=== PATIENT | male | born 1945 | race Hispanic/Latino ===

== ENCOUNTER 2019-11-10 15:16 | Outpatient (CLI) | payer MEDICARE, BC ==
--- NOTE | 2019-11-10 16:02 | RAD ---
THREE VIEWS RIGHT ANKLE: 11/10/19 COMPARISON: None. HISTORY: Stress fracture. Pain when walking. FINDINGS: Three views of the right ankle shows no evidence of acute fracture or dislocation. No soft tissue swe lling is seen. No significant degenerative changes are present. IMPRESSION: No evidence of acute osseous abnormality. POS: EAA
--- NOTE | 2019-11-10 16:03 | RAD ---
THREE VIEWS OF THE RIGHT FOOT: 11/10/19 COMPARISON: None. HISTORY: Stress fracture. Pain when walking. FINDINGS: Three views of the right foot shows no evidence of acute fracture or dislocation. No degenerative paul nges are seen. No soft tissue swelling is present. IMPRESSION: No evidence of acute osseous abnormality. POS: EAA
== END 2019-11-10 15:17 | disposition home or self-care (01) ==
LOC: BICRAD 15:16
PROVIDERS: ATTEND Family Medicine
DX: M84.374A Stress fracture, right foot, initial encounter for fracture (principal); M84.371A Stress fracture, right ankle, initial encounter for fracture

== ENCOUNTER 2020-04-21 20:20 | Observation (INO) | payer MEDICARE, BC ==
[~2020-04-21 20:20] MED LIST: Iopamidol-370 76% 500 ML 1 ML ONE
--- NOTE | 2020-04-21 21:08 | RAD ---
PORTABLE CHEST: 04/21/20 HISTORY: Dyspnea. COMPARISON: 05/25/14. There is hazy infiltrate in the right mid and lower lung concerning for ground glass type infiltrates . Heart size is mildly prominent. Vascularity is upper normal. Poor inspiration. Small effusions marilu ot be excluded. IMPRESSION: Suboptimal evaluation of the chest due to poor inspiration. Evidence of hazy infiltrate in the right mid lung. Mild vascular congestion. POS: AGW
[2020-04-21 21:09] LABS: Mean Corpuscular HGB CONC 35.9 g/dL (32.0-36.0); Mean Corpuscular Hemoglobin 32.5 pg (27.0-31.0); Mean Corpuscular Volume 90.6 fL (78.0-98.0); RBC Distribution Width 11.7 % (11.5-14.5); Red Blood Cell (RBC) Count 4.92 mill/uL (4.70-6.10); White Blood Cell (WBC) Count 5.1 thou/uL (4.8-10.8)
[2020-04-21 21:10] LABS: Bacteria/HPF None Seen HPF (None Seen); Bilirubin Negative (Negative); Blood, Urine Trace (Negative); Clarity Clear (Clear); Glucose, Urine (Dipstick) Greater than 1000 mg/dL (Negative); Ketone, Urine Trace mg/dL (Negative); Leukocyte Negative Leu/uL (Negative); Nitrite Negative (Negative); Protein, Urine (Dipstick) 30 mg/dL (Neg-Trace); RBC/HPF 0-3 HPF (0-3); Specific Gravity, Urine 1.033 (1.002-1.036); Squamous Epithelial None Seen HPF (0-3); Urobilinogen Normal mg/dL (Less than 2); WBC/HPF 0-3 HPF (0-3); pH, Urine 5.5 (5.0-9.0)
[2020-04-21 21:28] LABS: #Lymphocytes 0.6 thou/uL (1.20-3.40); #Monocytes 0.5 thou/uL (0.11-0.59); %Basophils 0.5 % (0.0-1.0); %Eosinophils 0.8 % (0.0-10.0); %Lymphocytes 10.8 % (21.0-51.0); %Monocytes 8.8 % (0.0-10.0); %Neutrophils 79.1 % (42.0-75.0); Mean Platelet Volume 9.3 fL (7.4-10.4); Platelet Count 96 thou/uL (130-400); Platelet Morphology Comment Appears Decreased
[2020-04-21 21:30] LABS: ALT (SGPT) 32 U/L (8-55); AST (SGOT) 38 U/L (5-34); Albumin 3.8 g/dL (3.4-4.8); Alkaline Phosphatase 56 U/L (40-110); Anion Gap 15 mmol/L (10-20); BUN (Urea Nitrogen) 24 mg/dL (8.4-25.7); Bilirubin, Total 0.6 mg/dL (0.2-1.2); CK (CPK) 41 U/L (30-200); Calc. Creatinine Clearance 0 mL/min (70-130); Calcium 8.8 mg/dL (7.8-10.44); Carbon Dioxide 22 mmol/L (23-31); Chloride 101 mmol/L (98-107); Estimated GFR-MDRD 66; Glucose 150 mg/dL (83-110); Lipase 27 U/L (8-78); Potassium 4.4 mmol/L (3.5-5.1); Protein, Total 6.8 g/dL (5.8-8.1); Sodium 134 mmol/L (136-145)
--- NOTE | 2020-04-21 22:54 | PDOC.FPRHP ---
- History of Present Illness Chief Complaint: SOB History of Present Illness: Patient is a 74 year old male with a history of DM, HLD, and HTN who presents to the ED with complains of chills x 1 week and fever x 4 days. Patient reports max temp today of 101.9. He notes productive cough with clear sputum, mild SOB, headache, body aches, and generalized weakness. Denies vision changes, decreased appetite, congestion and sore throat. COVID test was completed at Dr. Charles's office on 04/19 that was negative. Previously tested negative for COVID on 03/29. ED Course: In the ED, patient was noted to have temperature of 101.9F. Given 1L NS. Also administered Rocephin 2g, Azithro 500mg, Lovenox 1mg/kg, and decadron 10mg. - Allergies/Adverse Reactions Allergies Allergy/AdvReac Type Severity Reaction Status Date / Time No Known Drug Allergies Allergy Verified 04/22/20 01:21 - Home Medications Medication Instructions Recorded Confirmed Type Aspirin [Ecotrin] 81 mg PO DAILY 04/22/20 04/22/20 History Calcium Carb/Vitamin D3/Vit K1 1 tablet PO DAILY 04/22/20 04/22/20 History [Calcium + D Soft Chewable Tablet] Empagliflozin [Jardiance] 10 mg PO DAILY 04/22/20 04/22/20 History Fish Oil 1,000 mg PO DAILY 04/22/20 04/22/20 History Pravastatin Sodium [Pravachol] 10 mg PO DAILY 04/22/20 04/22/20 History Valsartan 1 tab PO DAILY 04/22/20 04/22/20 History metFORMIN [Glucophage] 500 mg PO QAM-WM 04/22/20 04/22/20 History - History PMHx: DM, HLD, HTN, previous pneumothorax, untreated AVANI PSHx: None FHx: Father - CHF, Sister - DM Social: Hx of smoking cigarettes for 4 years in the 1970s, previous ETOH use, no drug use - Review of Systems General: reports: fever/chills, fatigue. denies: weight/appetite/sleep changes Eyes: denies: vision changes ENT: denies: nasal congestion, rhinorrhea Respiratory: reports: cough (productive), shortness of breath (mild). denies: congestion Cardiovascular: denies: chest pain, palpitation, edema Gastrointestinal: denies: nausea, vomiting, abdominal pain Genitourinary: denies: dysuria, polyuria Skin: denies: rashes, jaundice Musculoskeletal: denies: pain, tenderness Neurological: reports: weakness (generalized). denies: numbness, syncope, se izure Psychological: denies: anxiety, depression - Vital signs BP: [100/65] HR: [85] RR: [30] Tmax: [101.9] Pox: [96]% on [RA] Wt: [94.8kg] - Physical Exam Constitutional: NAD, awake, alert and oriented HEENT: normocephalic and atraumatic, no scleral icterus, MMM Neck: FROM, trachea midline Chest: no-tender to palpation Heart: RRR, normal S1/S2, no murmurs/rubs/gallops, no edema Lungs: no respiratory distress, good air movement -Lungs: Crackles bilaterally Abdomen: soft, non-tender, bowel sounds present Musculoskeletal: ROM grossly normal Neurological: no focal deficit Skin: no rash/lesions Heme/Lymphatic: no unusual bruising or bleeding Psychiatric: normal mood and affect FMR H&P: Results - Labs Result Diagrams: 04/22/20 05:26 04/22/20 05:26 Lab results: WBC 5.1 thou/uL (4.8-10.8) 04/21/20 20:41 Hgb 16.0 g/dL (14.0-18.0) 04/21/20 20:41 Hct 44.6 % (42.0-52.0) 04/21/20 20:41 MCV 90.6 fL (78.0-98.0) 04/21/20 20:41 Plt Count 96 thou/uL (130-400) L 04/21/20 20:41 Neutrophils % 79.1 % (42.0-75.0) H 04/21/20 20:41 Sodium 134 mmol/L (136-145) L 04/21/20 20:41 Potassium 4.4 mmol/L (3.5-5.1) 04/21/20 20:41 Chloride 101 mmol/L (98-107) 04/21/20 20:41 Carbon Dioxide 22 mmol/L (23-31) L 04/21/20 20:41 BUN 24 mg/dL (8.4-25.7) 04/21/20 20: Creatinine 1.09 mg/dL (0.7-1.3) 04/21/20 20: Glucose 150 mg/dL (83-110) H 04/21/20 20:41 Lactic Acid 1.3 mmol/L (0.5-2.2) 04/21/20 20: Calcium 8.8 mg/dL (7.8-10.44) 04/21/20 20: Total Bilirubin 0.6 mg/dL (0.2-1.2) 04/21/20 20: AST 38 U/L (5-34) H 04/21/20 20:41 ALT 32 U/L (8-55) 04/21/20 20: Alkaline Phosphatase 56 U/L (40-110) 04/21/20 20: Creatine Kinase 41 U/L (30-200) 04/21/20 20: B-Natriuretic Peptide Less than 10.0 pg/mL (0-100) 04/21/20 20: Serum Total Protein 6.8 g/dL (5.8-8.1) 04/21/20 20: Albumin 3.8 g/dL (3.4-4.8) 04/21/20 20: Lipase 27 U/L (8-78) 04/21/20 20: Urine Ketones Trace mg/dL (Negative) A 04/21/20 20:45 Urine Blood Trace (Negative) A 04/21/20 20:45 Urine Nitrite Negative (Negative) 04/21/20 20:45 Ur Leukocyte Esterase Negative Courtney/uL (Negative) 04/21/20 20:45 Urine RBC 0-3 HPF (0-3) 04/21/20 20:45 Urine WBC 0-3 HPF (0-3) 04/21/20 20:45 Ur Squamous Epith Cells None Seen HPF (0-3) 04/21/20 20:45 Urine Bacteria None Seen HPF (None Seen) 04/21/20 20:45 FMR H&P: A/P - Plan COVID pneumonia Febrile in ED with max 101.9. WBC 5.1. D-dimer 0.4. Trop 0.012. BNP < 10. CXR showed hazy infiltration of the R middle lobe with mild vascular congestion. Negative flu. +COVID in ED -F/u CTA chest -Procal, ferritin, CRP -Trend d-dimer daily -F/u blood culture -Given Rocephin and Azithro in ED (04/21). Will continue -Given therapeutic lovenox in ED. Will start lovenox 40 daily -Given decadron 10mg in ED. Will start 4mg IV BID DM -Continue home medication HTN -Continue home medication Hx pneumothroax -Aware PCP: Dr. Charles Code: FULL DVT Ppx: Lovenox Dispo: Admit to medicine obs, expected LOS ~ 48 hours FMR H&P: Upper Level - Plan Date/Time: 04/21/20 0149 I, Monique Douglass, have evaluated this patient and agree with findings/plan as outlined by international accountant resident. Pertinent changes/additions are listed here. 74 yo M with PMH DM, HTN, HLD presents with a nonspecific 1 week hx of chills. He reports fever for the past 4 days at home. Productive wet cough with white phlegm began today. Endorses body aches, weakness, decreased appetite, mild SOB. Tolerating liquids well. Seen in Dr. Mckeon office 04/19 with negative COVID and flu swabs. Denies diarrhea, vomiting, chest pain. No known sick contacts. PMH includes DM2, HLD, HTN In ED given 1L, decadron, ASA, therapeutic lovenox dose, azithromycin, ceftriaxone PE: Gen: NAD HEENT: Moist MM, no LAD Heart: RRR, no murmurs Lungs: No increased work of breathing, scattered crackles, no wheezing, good air movement Abd: soft, nontender Ext: no cyanosis or edema COVID PNA w/ possible superimposed bacterial pneumonia - CXR with R mid lung hazy infiltrate, poor inspiration, mild vasc congestion - CTA read pending - COVID + 04/21 (had negative test 04/19). Symptom onset ~04/18 - No hypoxia. On presentation Tmax 101.9, RR 30, pulse 99 - Start dexamethasone. No indication for convalescent plasma or remdesivir at this time - Covid labs pending. D-dimer 0.4 - BNP and trop negative - Continue azithromycin and ceftriaxone (04/21) for concern for bacterial pneumonia considering R sided infiltrate. Procalcitonin pending Attending: Edward PCP: Melvin Dispo: admit to medical floor for observation, expected LOS <48h Addendum - Attending - Attending Attestation Date/Time: 04/21/20 4858 I personally evaluated the patient and discussed the management with resident team I agree with the History, Examination, Assessment and Plan documented above with any addition or exceptions noted below. Patient with possible resolving vs evolving consolidated pneumonia now with superimposed COVID pneumonia. Intermittent hypoxia since presentation. At this time does not require O2. Poor air movement in bases. Course sounds throughout. Will obs overnight. Start treatment for CAP. Add dex. Trend labs. PPx lovenox. Dispo to be determined tomorrow based on respiratory status. Does have several concerning underlying conditions including obesity, untreated AVANI, hx of spontaneous pnuemothorax, HTN, DM, and HLD. [place]
[2020-04-21] MEDS ORDERED: Acetaminophen 325 MG TAB PO PRN (23:13)
[2020-04-21] MEDS ORDERED: Ondansetron PF 4 MG/2 ML Vial IVP PRN (23:13)
[2020-04-21] MEDS ORDERED: Ondansetron ODT 4 MG TAB PO PRN (23:13)
[2020-04-21] MEDS ORDERED: Dextrose 50% Abboject 50 ML SYRINGE SLOW IVP PRN (23:25)
[2020-04-21] MEDS ORDERED: HumaLOG 300 UNITS/3 ML VIAL SC PRN ×2 (23:25)
[2020-04-21] MEDS ORDERED: Dextrose 5% in Water 1,000 ML IV PRN (23:25)
[2020-04-21] MEDS ORDERED: Azithromycin 500 MG VIAL ONE (23:35)
[2020-04-21] MEDS ORDERED: Aspirin 325 MG TAB ONE (23:35)
[2020-04-21] MEDS ORDERED: Enoxaparin Sodium 100 MG/ML SYRINGE ONE (23:35)
[2020-04-21] MEDS ORDERED: Dexamethasone 10 MG/ML VIAL ONE (23:36)
[2020-04-22 01:09] VITALS: BMI 31.4
[2020-04-22 05:41] LABS: #Lymphocytes 0.5 thou/uL (1.20-3.40); #Monocytes 0.2 thou/uL (0.11-0.59); #Neutrophils 3.1 thou/uL (1.40-6.50); %Basophils 0.3 % (0.0-1.0); %Eosinophils 0.1 % (0.0-10.0); %Lymphocytes 12.2 % (21.0-51.0); %Monocytes 3.9 % (0.0-10.0); %Neutrophils 83.4 % (42.0-75.0); Mean Corpuscular HGB CONC 35.2 g/dL (32.0-36.0); Mean Corpuscular Hemoglobin 32.1 pg (27.0-31.0); Mean Corpuscular Volume 91.2 fL (78.0-98.0); Mean Platelet Volume 8.8 fL (7.4-10.4); Platelet Count 91 thou/uL (130-400); RBC Distribution Width 11.8 % (11.5-14.5); Red Blood Cell (RBC) Count 4.69 mill/uL (4.70-6.10); White Blood Cell (WBC) Count 3.7 thou/uL (4.8-10.8)
[2020-04-22 05:57] LABS: Anion Gap 16 mmol/L (10-20); BUN (Urea Nitrogen) 20 mg/dL (8.4-25.7); Calc. Creatinine Clearance 86 mL/min (70-130); Calcium 8.2 mg/dL (7.8-10.44); Carbon Dioxide 19 mmol/L (23-31); Chloride 104 mmol/L (98-107); Estimated GFR-MDRD 74; Glucose 175 mg/dL (83-110); Sodium 134 mmol/L (136-145)
--- NOTE | 2020-04-22 07:04 | PDOC.FM ---
- Subjective Subjective: Pt is doing well. He has fever/chills. He denies worsening respiratory status. Overall he feels better. He is not currently on oxygen. He currently does not have a positive COVID test. He wants me to discuss with his . - Objective Vital Signs & Weight: Vital Signs (12 hours) Temp Pulse Resp BP Pulse Ox 04/22/20 04:00 97.7 F 68 18 117/76 95 04/22/20 00:52 97.5 F L 81 20 112/71 94 L Weight Weight 91.172 kg Result Diagrams: 04/22/20 05:26 04/22/20 05:26 Radiology Reviewed by me: Yes Phys Exam - Physical Examination Constitutional: NAD HEENT: PERRLA, moist MMs bilateral crackles without wheezing Cardiovascular: RRR, no significant murmur Gastrointestinal: soft, positive bowel sounds Musculoskeletal: no edema, pulses present Psychiatric: normal affect, A&O x 3 Dx/Plan - Plan Plan: COVID pneumonia Febrile in ED with max 101.9. WBC 5.1. D-dimer 0.4. Trop 0.012. BNP < 10. CXR showed hazy infiltration of the R middle lobe with mild vascular congestion. Negative flu. -COVID tests mildly elevated -F/u blood culture -Given Rocephin and Azithro in ED (04/21). Will continue although procalcitonin is negative. -Continue lovenox inpatient -Discuss discharge as he does not have respiratory distress. -Discuss COVID testing with Dr. Charles to confirm negative test and testing type. Thrombocytopenia - monitor in the setting of lovenox DM -Continue home medication HTN -Continue home medication Hx pneumothroax -Aware PCP: Dr. Charles Code: FULL DVT Ppx: Lovenox Dispo: Admit to medicine obs Addendum - Attending - Attending Attestation Date/Time: 04/22/20 1223 I personally evaluated the patient and discussed the management with Dr. Kamara. I agree with the History, Examination, Assessment and Plan documented above with any addition or exceptions noted below. Patient here with concern for COVID pneumonia. However, his vital signs are very stable. Will discuss with patient and family the option of discharge home with close outpatient monitoring.
--- NOTE | 2020-04-22 07:39 | CT ---
CTA CHEST: Axial tomograms were obtained following angio protocol with multiplanar reconstruction and 3D postpro cessing. INDICATION: Shortness of breath and fever. FINDINGS: Pulmonary arteries are adequately opacified. There is no evidence of pulmonary embolus. Thoracic ao rta is unremarkable. There is nonspecific mediastinal and hilar adenopathy. Review of the lung hahn shows bilateral diffuse hazy ground-glass infiltrates which are primarily i n the periphery of all lobes of both lungs. Findings indicate COVID pneumonia. IMPRESSION: 1. No evidence of pulmonary embolus. 2. Mediastinal and hilar adenopathy. 3. Bilateral peripheral qclivv-mybhh-izur infiltrates throughout both lungs consistent with COVID pn eumonia. POS: AGW
[2020-04-22] MEDS ORDERED: Calcium Carbonate 600 MG + Vit D TAB PO SCH (08:00)
[2020-04-22] MEDS ORDERED: metFORMIN 500 MG TAB PO SCH (08:00)
[2020-04-22] MEDS ORDERED: Aspirin 81 mg Enteric Coated Tablet PO SCH (09:00)
[2020-04-22] MEDS ORDERED: Dexamethasone Sod Phosphate 4 MG in Sodium Chloride 0.9% 50 ML IVPB SCH (09:00)
[2020-04-22] MEDS ORDERED: Empagliflozin 10 MG TAB PO SCH (09:00)
[2020-04-22] MEDS ORDERED: Valsartan 80 MG TAB PO SCH (09:00)
[2020-04-22] MEDS ORDERED: Fish Oil 1,000 MG CAP PO SCH (09:00)
[2020-04-22] MEDS ORDERED: Enoxaparin Sodium 40 MG/0.4 ML SYRINGE SC SCH (09:00)
[2020-04-22 15:15] VITALS: BP 136/85; TEMP 97.7
[2020-04-22 17:53] LABS: SARS-CoV-2 MS2 Positive; SARS-CoV-2 N Gene Positive; SARS-CoV-2 S Gene Positive; SARS-CoV-2 by NAA DETECTED (NotDetected); SARS-CoV-2 orf1ab Positive
--- NOTE | 2020-04-22 18:37 | DIS ---
DATE OF ADMISSION: 04/21/2020 DATE OF DISCHARGE: 04/22/2020 RESIDENT: Fei Kamara DO ADMITTING ATTENDING: Emelina Leon MD DISCHARGE ATTENDING: Hua Rosales MD CONSULTS: None. PROCEDURES: 1. Chest x-ray on 04/21/2020, revealed suboptimal evaluation of the chest due to poor inspiration, but there was evidence of hazy infiltrate in the right middle lung. Mild vascular congestion. 2. CTA chest and thorax on 04/21/2020 revealed no evidence of PE. Mediastinal and hilar adenopathy. Bilateral peripheral aqxdwe-mxrdb-hkoe infiltrates throughout both lungs consistent with COVID pneumonia. PRIMARY DIAGNOSES: 1. COVID pneumonia without acute hypoxic respiratory failure. 2. Thrombocytopenia. SECONDARY DIAGNOSES: 1. Diabetes mellitus. 2. Hypertension. 3. History of pneumothorax. 4. Hyperlipidemia. DISCHARGE MEDICATIONS: 1. Fish oil 1000 mg p.o. daily. 2. Calcium plus D3 soft chewable tablet, one tablet p.o. daily. 3. Aspirin 81 mg p.o. daily. 4. Metformin 500 mg p.o. q.a.m. 5. Pravastatin 10 mg p.o. daily. 6. Valsartan 320 mg p.o. daily. 7. Jardiance 10 mg p.o. daily. 8. Dexamethasone 6 mg p.o. q.a.m. for a total of a 10-day course. DISCONTINUED MEDICATIONS: None. HISTORY OF PRESENT ILLNESS/HOSPITAL COURSE: Clifton Aguilar is a 74-year-old gentleman, with past medical history consistent with diabetes, hypertension, and hyperlipidemia, who presented for fevers and chills for about one week. The patient was noted to have a max temperature of 101.9 in the emergency department. Of note, he had been tested for COVID pneumonia with point of care antigen test which was negative in Dr. Charles's office. Of note, he did have a negative test on 03/29. Laboratory in the emergency department revealed a white blood cell count of 3.7, D-dimer of 0.04, ferritin 851, CRP 9.24, and procalcitonin 0.06. PCR COVID swab was not sent at that time, but it was likely that patient was suffering from COVID pneumonia, although he was not having acute hypoxic respiratory failure. I spoke with Dr. Charles on 04/22/2020. He noted that his also tested positive for COVID pneumonia. I spoke with the and she states that her symptoms were very mild, similar to her 's. Both the patient and felt that he was safe to go home as he was not requiring any oxygen therapy. Return precautions were discussed with patient and . We did not continue antibiotics as his procalcitonin was 0.06. We will continue dexamethasone for a total of a 10-day course. He will follow up with Dr. Charles for a telephone visit on the following Saturday. DISPOSITION: Stable. DISCHARGE INSTRUCTIONS: 1. Location: [facility]. 2. Diet: Heart-healthy and diabetic. 3. Activity: Ad chrissy. 4. Followup: Follow up with Dr. Charles on 04/25/2020. Job ID: [id number]
[2020-04-22] MEDS ORDERED: Pravastatin Sodium 20 MG TAB PO SCH (21:00)
[2020-04-22] MEDS ORDERED: Simvastatin 5 MG TAB PO SCH (21:00)
[2020-04-22] MEDS ORDERED: cefTRIAXone\\ROCEPHIN 2 GM in Sodium Chloride 0.9% 100 ML IVPB SCH (23:00)
[2020-04-22] MEDS ORDERED: Azithromycin 500 MG in Sodium Chloride 0.9% 250 ML 250 ML IVPB SCH (23:30)
[2020-04-23] MEDS ORDERED: Dexamethasone 4 MG TAB PO SCH (08:00)
--- NOTE | 2020-04-30 16:03 | EKG ---
Test Reason : SEPSIS Blood Pressure : / mmHG Vent. Rate : 098 BPM Atrial Rate : 098 BPM P-R Int : 162 ms QRS Dur : 092 ms QT Int : 328 ms P-R-T Axes : 043 -45 010 degrees QTc Int : 418 ms Normal sinus rhythm Left anterior fascicular block Abnormal ECG Confirmed by RASHID CROOK, MARTHA ([id number]), graphic editor VIVIAN BLAS ([id number]) on 04/30/2020 4:03:09 PM Referred By: Confirmed By:MARTHA MIKE MD
== END 2020-04-22 16:26 | disposition home or self-care (01) ==
LOC: ERS 20:20 → T4-A 22:41
PROVIDERS: ADMIT Student in an Organized Health Care Education/Training Program; ATTEND Student in an Organized Health Care Education/Training Program
DX: U07.1 COVID-19 (principal); J12.89 Other viral pneumonia; D69.6 Thrombocytopenia, unspecified; E11.9 Type 2 diabetes mellitus without complications; E78.5 Hyperlipidemia, unspecified; I10 Essential (primary) hypertension; G47.33 Obstructive sleep apnea (adult) (pediatric); Z79.82 Long term (current) use of aspirin; Z79.84 Long term (current) use of oral hypoglycemic drugs; Z79.899 Other long term (current) drug therapy; Z87.891 Personal history of nicotine dependence
CPT/HCPCS: 71045; 71275; 80048; 80053; 82550; 82728; 82962; 83605; 83690; 83880; 84145; 84484; 85025 ×2; 85379 ×2; 86140; 87040; 87149 ×2; 87804 ×2; 93005; 96365; 96367; 96372; 96375; 99285; U0003; 36415; 36416; 81003; 81015; 87635; J0456; J0690; J1100; J1650; Q9967

== ENCOUNTER 2020-04-23 20:32 | Inpatient (IN) | payer MEDICARE, BC ==
--- NOTE | 2020-04-23 21:11 | RAD ---
Chest AP view INDICATION: History of Covid positive status with shortness of breath COMPARISON: Prior exam dated April 21, 2020 FINDINGS: Lungs: There is worsening bilateral pneumonia Cardiac silhouette: Stable mild cardiomegaly. Pulmonary vasculature: Normal Pleural spaces: No pleural effusion or pneumothorax is demonstrated. Upper abdomen: No abnormality seen. Osseous structures: No acute osseous abnormality. Additional findings: None. IMPRESSION: Worsening bilateral pneumonia
[2020-04-23 21:22] LABS: #Lymphocytes 0.5 thou/uL (1.20-3.40); #Monocytes 0.4 thou/uL (0.11-0.59); #Neutrophils 7.5 thou/uL (1.40-6.50); %Eosinophils 0.2 % (0.0-10.0); %Lymphocytes 5.9 % (21.0-51.0); %Monocytes 4.7 % (0.0-10.0); %Neutrophils 89.2 % (42.0-75.0); Hemoglobin 15.8 g/dL (14.0-18.0); Mean Corpuscular HGB CONC 35.3 g/dL (32.0-36.0); Mean Corpuscular Volume 90.5 fL (78.0-98.0); Mean Platelet Volume 8.8 fL (7.4-10.4); Platelet Count 136 thou/uL (130-400); RBC Distribution Width 11.8 % (11.5-14.5); Red Blood Cell (RBC) Count 4.94 mill/uL (4.70-6.10); White Blood Cell (WBC) Count 8.4 thou/uL (4.8-10.8)
[2020-04-23 22:13] LABS: ALT (SGPT) 23 U/L (8-55); AST (SGOT) 37 U/L (5-34); Albumin 3.7 g/dL (3.4-4.8); Alkaline Phosphatase 52 U/L (40-110); Anion Gap 23 mmol/L (10-20); BUN (Urea Nitrogen) 25 mg/dL (8.4-25.7); Bilirubin, Total 0.7 mg/dL (0.2-1.2); Calc. Creatinine Clearance 0 mL/min (70-130); Calcium 9.1 mg/dL (7.8-10.44); Carbon Dioxide 16 mmol/L (23-31); Chloride 101 mmol/L (98-107); Globulin 3.1 g/dL (2.4-3.5); Glucose 164 mg/dL (83-110); Potassium 5.9 mmol/L (3.5-5.1); Protein, Total 6.8 g/dL (5.8-8.1); Sodium 134 mmol/L (136-145)
[2020-04-23] MEDS ORDERED: Azithromycin 500 MG VIAL ONE (22:14)
[2020-04-23] MEDS ORDERED: Cefepime 2 GM VIAL ONE (22:14)
[2020-04-23] MEDS ORDERED: Dexamethasone 10 MG/ML VIAL ONE (22:14)
--- NOTE | 2020-04-23 22:27 | PDOC.FPRHP ---
- History of Present Illness Chief Complaint: SOB, difficulty breathing History of Present Illness: Patient is a 74 yo M hx of HTN, HLD, DM who presents due to shortness of breath that started late afternoon. Patient was d/c from the hospital yesterday due to covid pneumonia, never requiring oxygen. First day of covid symptoms was 5-6 days ago. His tested positive a couple days ago. Denies cough and chest pain, but promotes fevers off/on. States his breathing is improved. Denies abdominal pain, N/V, weakness. ED Course: 1L NS, 10mg IV decadron, 2g cefepime, albuterol, azithro 500mg IV - Allergies/Adverse Reactions Allergies Allergy/AdvReac Type Severity Reaction Status Date / Time No Known Drug Allergies Allergy Verified 04/22/20 01:21 - Home Medications Medication Instructions Recorded Confirmed Type Aspirin [Ecotrin Low Strength] 81 mg PO DAILY 04/22/20 04/24/20 History Calcium Carb/Vitamin D3/Vit K1 1 tablet PO DAILY 04/22/20 04/24/20 History [Calcium + D Soft Chewable Tablet] Dexamethasone [Decadron] 6 mg PO QAM-WM #8 tab 04/22/20 04/24/20 Rx Empagliflozin [Jardiance] 10 mg PO DAILY 04/22/20 04/24/20 History Fish Oil 1,000 mg PO DAILY 04/22/20 04/24/20 History Pravastatin Sodium [Pravachol] 10 mg PO DAILY 04/22/20 04/24/20 History Valsartan 1 tab PO DAILY 04/22/20 04/24/20 History metFORMIN [Glucophage] 500 mg PO QAM-WM 04/22/20 04/24/20 History - History PMHx:DM, HLD, HTN, previous pneumothorax, untreated AVANI PSHx: none FHx: father chf, sister DM Social: Hx of smoking cigarettes for 4 years in the 1970s, previous ETOH use, no drug use - Review of Systems General: reports: fever/chills. denies: weight/appetite/sleep changes Eyes: denies: eye pain, vision changes ENT: denies: nasal congestion, rhinorrhea Respiratory: reports: shortness of breath. denies: cough, congestion Cardiovascular: denies: chest pain, palpitation Gastrointestinal: denies: nausea, vomiting, diarrhea, constipation, abdominal pain Genitourinary: denies: incontinence, dysuria Skin: denies: rashes, lesions Musculoskeletal: denies: pain, tenderness Neurological: denies: numbness, syncope - Vital signs BP: 119/73, MAP: 88, Pulse: 88, Resp: 26, Temp: 99.3 (Oral), Pain: 0, O2 sat: 99 on (High Flow O2), - Physical Exam Constitutional: NAD HEENT: normocephalic and atraumatic, PERRLA, EOMI, other (dry mucous membranes) Neck: supple, FROM Chest: no-tender to palpation Heart: RRR, normal S1/S2, no murmurs/rubs/gallops Lungs: CTAB, no rales/rhonchi, no wheezing Abdomen: soft, non-tender, bowel sounds present Musculoskeletal: normal structure, normal tone Neurological: no focal deficit, normal sensation Skin: no rash/lesions, other (low cap refill) Heme/Lymphatic: no unusual bruising or bleeding, no purpura Psychiatric: good judgment and insight, intact recent and remote memory FMR H&P: Results - Labs Result Diagrams: 04/24/20 03:32 04/24/20 03:32 Lab results: WBC 8.4 thou/uL (4.8-10.8) 04/23/20 21:07 Hgb 15.8 g/dL (14.0-18.0) 04/23/20 21:07 Hct 44.7 % (42.0-52.0) 04/23/20 21:07 MCV 90.5 fL (78.0-98.0) 04/23/20 21:07 Plt Count 136 thou/uL (130-400) 04/23/20 21:07 Neutrophils % 89.2 % (42.0-75.0) H 04/23/20 21:07 Sodium 134 mmol/L (136-145) L 04/23/20 21:07 Potassium 5.9 mmol/L (3.5-5.1) H 04/23/20 21:07 Chloride 101 mmol/L (98-107) 04/23/20 21:07 Carbon Dioxide 16 mmol/L (23-31) L 04/23/20 21:07 BUN 25 mg/dL (8.4-25.7) 04/23/20 21:07 Creatinine 1.04 mg/dL (0.7-1.3) 04/23/20 21:07 Glucose 164 mg/dL (83-110) H 04/23/20 21:07 Lactic Acid 2.3 mmol/L (0.5-2.2) H 04/23/20 21:07 Calcium 9.1 mg/dL (7.8-10.44) 04/23/20 21:07 Total Bilirubin 0.7 mg/dL (0.2-1.2) 04/23/20 21:07 AST 37 U/L (5-34) H 04/23/20 21:07 ALT 23 U/L (8-55) 04/23/20 21:07 Alkaline Phosphatase 52 U/L (40-110) 04/23/20 21:07 B-Natriuretic Peptide 38.4 pg/mL (0-100) 04/23/20 21:07 Serum Total Protein 6.8 g/dL (5.8-8.1) 04/23/20 21:07 Albumin 3.7 g/dL (3.4-4.8) 04/23/20 21:07 - Radiology Interpretation Chest x-ray Status: image reviewed by me (worsening bilateral pneumonia) FMR H&P: A/P - Plan Covid Pneumonia CXR - worsening bilateral pneumonia Covid +, Covid symptoms started 5-6 days ago Hypoxic on arrival, satting in the 70s, now requiring high flow 50/70 - continue azithro - continue steroids - anticoagulating with lovenox - consider ID consult convalescent plasma & remdesivir - consult pulm in am - continue covering for typical/atypical bacterial PNA, pending procal - continue monitoring respiratory status, vitals DM - resume home meds - hypoglycemia protocol - SS - ACHS glucose checks HTN - resume home meds HLD - resume home meds Dispo: admit IMCU PCP: Melvin Code status: Full Case to be discussed with Dr. Rosales. FMR H&P: Upper Level - Plan Date/Time: 04/23/20 8794 I, Gladys Presley MD, have evaluated this patient and agree with findings/plan as outlined by internet database specialist resident. Pertinent changes/additions are listed here. This is a 74yo M with PMH of DM2, HTN and who was recently hospitalized and discharge on 04/22 for COVID PNA presenting today with difficulty breathing and worsening SOB. At that time he was not requiring O2. He was given steroids. Abx were not continued because his procal was negative. Patient reports chills and fever off and on over the last 5-6 days ago. He reports productive cough with clear sputum. Reports worsened SOB as compared to yesterday. Denies decreased appetite, congestion or sore throat. Had positive COVID test on 04/22. In the ER the patient was febrile with Tmax of 100.4F. He also presented satting 75% on RA, tachy at 116 and tachypneic at 24. He was placed on HFNC 50L/71%FiO2 and was satting 98% with this. He was given proventil, cefepime, azithromycin, decadron, and 1L NS. His CXR showed worsening bilateral PNA. On PE, patient was resting comfortably in bed, he did become mildly SOB with multiple sentences. Lung sounds were normal, poor air movement. RRR, no murmurs. MMM dry and slow cap refill. Will admit patient to IMCU for Acute Hypoxic Resp Failure 2/2 COVID PNA. Will continue decadron. Continue azithro. Procal pending. Will give lovenox 40mg daily, can consider increasing to th. if Ddimer rises. Albuterol PRN. Will consult pulm in the AM. Will consult ID to consider patient for conv. plasma and remdesivir now that patient is requiring O2. COVID pos on 04/22, per patient day 6 of symptoms. Continue on HFNC, will ween as tolerated. Awake proning as tolerated. PO hydration. COVID precautions. Continue medications for chronic conditions. Dispo: admit IMCU, inpt PCP: Melvin Code: FULL Case discussed with Dr. Rosales Addendum - Attending - Attending Attestation Date/Time: 04/24/20 0030 I personally evaluated the patient and discussed the management with Dr. Du/Fernandez. I agree with the History, Examination, Assessment and Plan documented above with any addition or exceptions noted below.
[2020-04-23] MEDS ORDERED: Albuterol 200 PUFF (6.7GM INHALER) ONE (22:35)
[2020-04-24 00:17] LABS: Lactic Acid 1.6 mmol/L (0.5-2.2)
[2020-04-24] MEDS ORDERED: Ondansetron PF 4 MG/2 ML Vial IVP PRN (00:56)
[2020-04-24] MEDS ORDERED: Ondansetron ODT 4 MG TAB PO PRN (00:56)
[2020-04-24 01:01] LABS: Troponin I Less than 0.010 ng/mL (< 0.028)
[2020-04-24] MEDS ORDERED: Albuterol 200 PUFF (6.7GM INHALER) INH PRN (01:32)
[2020-04-24] MEDS ORDERED: Lactated Ringer's 1,000 ML IV SCH (01:45)
[2020-04-24] MEDS ORDERED: Dextrose 5% in Water 1,000 ML IV PRN (01:46)
[2020-04-24] MEDS ORDERED: Dextrose 50% Abboject 50 ML SYRINGE SLOW IVP PRN (01:46)
[2020-04-24 03:43] LABS: #Lymphocytes 0.5 thou/uL (1.20-3.40); #Monocytes 0.3 thou/uL (0.11-0.59); #Neutrophils 5.1 thou/uL (1.40-6.50); %Eosinophils 0.2 % (0.0-10.0); %Lymphocytes 7.7 % (21.0-51.0); Hemoglobin 13.8 g/dL (14.0-18.0); Mean Corpuscular HGB CONC 35.2 g/dL (32.0-36.0); Mean Corpuscular Hemoglobin 32.5 pg (27.0-31.0); Mean Corpuscular Volume 92.3 fL (78.0-98.0); Mean Platelet Volume 8.5 fL (7.4-10.4); Platelet Count 126 thou/uL (130-400); RBC Distribution Width 11.9 % (11.5-14.5); Red Blood Cell (RBC) Count 4.24 mill/uL (4.70-6.10); White Blood Cell (WBC) Count 5.9 thou/uL (4.8-10.8)
[2020-04-24 04:14] LABS: ALT (SGPT) 22 U/L (8-55); AST (SGOT) 26 U/L (5-34); Albumin 3.2 g/dL (3.4-4.8); Alkaline Phosphatase 39 U/L (40-110); Anion Gap 18 mmol/L (10-20); BUN (Urea Nitrogen) 25 mg/dL (8.4-25.7); Bilirubin, Total 0.6 mg/dL (0.2-1.2); Calc. Creatinine Clearance 94 mL/min (70-130); Calcium 8.6 mg/dL (7.8-10.44); Carbon Dioxide 18 mmol/L (23-31); Chloride 104 mmol/L (98-107); Globulin 2.8 g/dL (2.4-3.5); Glucose 160 mg/dL (83-110); Potassium 4.9 mmol/L (3.5-5.1); Sodium 135 mmol/L (136-145)
[2020-04-24 04:17] LABS: Troponin I Less than 0.010 ng/mL (< 0.028)
--- NOTE | 2020-04-24 05:47 | PDOC.FM ---
- Subjective Subjective: Doing well this morning. Endorses SOB, but improved from yesterday. Hungry this morning otherwise no complaints. - Objective MAR Reviewed: Yes Vital Signs & Weight: Vital Signs (12 hours) Temp Pulse Ox 04/24/20 04:00 97.7 F 04/24/20 01:32 LINE FIXER 99 04/24/20 00:25 97.0 F L 100 Weight Weight 89.358 kg Most Recent Monitor Data Heart Rate from ECG 79 NIBP 146/83 NIBP BP-Mean 104 Respiration from ECG 30 SpO2 95 Result Diagrams: 04/24/20 03:32 04/24/20 03:32 Phys Exam - Physical Examination Constitutional: NAD HEENT: sclera anicteric Neck: supple rhonchi present Cardiovascular: RRR Gastrointestinal: soft Musculoskeletal: no edema Neurological: moves all 4 limbs Psychiatric: normal affect, A&O x 3 Skin: no rash Dx/Plan - Plan Plan: Acute Hypoxic Resp failure 2/2 COVID PNA (+ on 04/22, Day #7 of symptoms) - Continue Decadron, Albuterol PRN - Ordered Conv plasma. ID consulted. - Pulm consulted. - Continue on HFNC, wean as tolerated. Awake proning as tolerated. PO hydration. COVID precautions. DM - Continue home meds - Hypoglycemia protocol - ACHS glucose checks HTN - Continue home meds HLD - Continue home meds PCP: Melvin Code status: Full Addendum - Attending - Attending Attestation Date/Time: 04/24/20 9148 I personally evaluated the patient and discussed the management with Dr. Delaney. I agree with the History, Examination, Assessment and Plan documented above with any addition or exceptions noted below. Patient here for worsening respiratory status from COVID. He had acute worsening shortness of breath that prompted re-admission. Now on HFNC. Continue usual supportive care.
[2020-04-24] MEDS ORDERED: Enoxaparin Sodium 40 MG/0.4 ML SYRINGE SC SCH (09:00)
[2020-04-24] MEDS ORDERED: Azithromycin 250 MG TAB PO SCH (09:00)
[2020-04-24] MEDS: Empagliflozin 10 MG TAB PO SCH (09:48)
[2020-04-24] MEDS: Fish Oil 1,000 MG CAP PO SCH (09:49)
[2020-04-24] MEDS: Simvastatin 5 MG TAB PO SCH (09:49)
[2020-04-24] MEDS: Calcium Carbonate 600 MG + Vit D TAB PO SCH (09:49)
[2020-04-24] MEDS: Valsartan 80 MG TAB PO SCH (09:49)
[2020-04-24] MEDS: metFORMIN 500 MG TAB PO SCH (09:50)
[2020-04-24] MEDS: Enoxaparin Sodium 40 MG/0.4 ML SYRINGE SC SCH ×2 (09:51→19:51)
[2020-04-24] MEDS: Dexamethasone 4 MG TAB PO SCH (10:05)
[2020-04-24] MEDS: Lactated Ringer's 1,000 ML IV SCH (16:45)
[2020-04-24] MEDS ORDERED: REMDESIVIR (EUA) 200 MG in Sodium Chloride 0.9% 250 ML 210 ML IV SCH (18:00)
--- NOTE | 2020-04-24 21:18 | CON ---
DATE OF CONSULTATION: 04/24/2020 REFERRING PHYSICIAN: Dr. Du. HISTORY OF PRESENT ILLNESS: Mr. Aguilar is a 74-year-old gentleman with history of hypertension and diabetes. He was here at the hospital two days prior to admission with COVID pneumonia; however, symptoms were fairly mild at that time. He was not requiring supplemental oxygen and was discharged home. Unfortunately, he is breathing fairly rapidly thereafter began to deteriorate and he returned to the hospital where he is now admitted. It has been approximately one week since the initial onset of symptoms, although only 24 hours since dramatic worsening. He has received Decadron, empiric cefepime and azithromycin. He is now admitted to the intensive care unit and is on high-flow nasal cannula at 50 L and 70% FiO2. He has not yet received the remdesivir or convalescent plasma. He denies sputum, hemoptysis. He does report breathlessness. He denies chest pain, but does report chest tightness/fullness. SOCIAL HISTORY: The patient is a 74-year-old gentleman. He does not smoke or drink. ALLERGIES: HE HAS NO REPORTED MEDICATION ALLERGIES. HOME MEDICATIONS: 1. Aspirin 81 daily. 2. Calcium with vitamin D daily. 3. Decadron 6 mg daily at home and taper. 4. Jardiance 10 mg daily. 5. Fish oil daily. 6. Pravastatin 10 mg daily. 7. Losartan unspecified dose one tablet daily. 8. Metformin 500 daily. PAST MEDICAL HISTORY: Remarkable for diabetes with dyslipidemia and hypertension. He has untreated obstructive sleep apnea. He is mildly obese with BMI of 31. REVIEW OF SYSTEMS: Remarkable as above, otherwise negative. FAMILY HISTORY: Remarkable for currently ill with COVID. PHYSICAL EXAMINATION: VITAL SIGNS: Current blood pressure 145/89, heart rate is 88, pulse ox 97%. He is on high-flow oxygen at 70%. HEENT: He has no oral Shahnaz. NECK: Shows no adenopathy. He has no JVD. LUNGS: Showed bilateral crackles. HEART: Regular rate and rhythm. ABDOMEN: Soft and obese. There is no organomegaly. EXTREMITIES: He has no edema. He has no cord or tenderness. LABORATORY DATA: White count 5900, hemoglobin 13.8 with hematocrit of 39.1, and platelet count of 126,000. Chemistry notable for sodium 135, potassium 4.9, chloride 104, CO2 is 18 up from 16 on admission. BUN 25, creatinine 0.88, glucose is 160, ferritins is elevated. Liver tests are negative. Troponin is negative. CRP is 12. His D-dimer is 0.38. His chest x-ray shows elevation of the right hemidiaphragm. Heart size is upper limits of normal with LV prominent. He has interstitial prominence greater on the right than on the left, sparing really only the left apex. IMPRESSION: 1. Coronavirus disease pneumonia with worsening hypoxia and impending respiratory failure. 2. Diabetes. RECOMMENDATIONS: He is admitted to the ICU, currently receiving high-flow nasal cannula at 70%. We will provide ongoing support with expectation that our next step is intubation if required. He is receiving other therapies directed at COVID including DVT prophylaxis and I have made arrangements for him to receive remdesivir and convalescent plasma. Condition is critical. Pulmonary Service will continue to follow and offer additional assistance. Job ID: [id number]
[2020-04-25] MEDS: Benzonatate 100 MG CAP PO PRN ×3 (02:29→21:09)
[2020-04-25] MEDS: Lactated Ringer's 1,000 ML IV SCH ×3 (02:30→18:47)
[2020-04-25] MEDS: Acetaminophen 325 MG TAB PO PRN (04:56)
--- NOTE | 2020-04-25 06:11 | PDOC.FM ---
- Subjective Subjective: Patient doing okay this morning. Reports he had difficulty sleeping overnight due to coughing. Reports feeling tired. States he feels less sob than yesterday. - Objective Vital Signs & Weight: Vital Signs (12 hours) Temp Pulse Ox 04/25/20 05:26 99.0 F 04/25/20 04:56 99.3 F 04/25/20 04:00 99.3 F 04/25/20 00:00 97.5 F L 94 L 04/24/20 20:00 97.6 F 95 Weight Weight 89.358 kg Most Recent Monitor Data Heart Rate from ECG 100 NIBP 150/91 NIBP BP-Mean 110 Respiration from ECG 33 SpO2 92 I&O: 04/23/20 04/24/20 04/25/20 07:59 06:59 06:59 Intake Total 4190 Output Total 3800 Balance 390 Result Diagrams: 04/24/20 03:32 04/24/20 03:32 Phys Exam - Physical Examination Constitutional: NAD HEENT: moist MMs, sclera anicteric Neck: supple, full ROM scant crackles; decreased breath sounds throughout Cardiovascular: RRR Gastrointestinal: soft, non-tender Musculoskeletal: no edema, pulses present Neurological: non-focal, moves all 4 limbs Psychiatric: normal affect Skin: no rash Dx/Plan (1) Acute respiratory failure with hypoxia Code(s): J96.01 - ACUTE RESPIRATORY FAILURE WITH HYPOXIA Status: Acute (2) Pneumonia due to COVID-19 virus Code(s): U07.1 - COVID-19; J12.89 - OTHER VIRAL PNEUMONIA Status: Acute - Plan Plan: Patient is a 74M with PMHx of DM, HLD, and HTN that is admitted for: #Acute Hypoxic Resp failure 2/2 COVID PNA (+ on 04/22, Day #8 of symptoms) - Continue Decadron, Albuterol PRN - Received Conv plasma and remdesivir 04/24. ID consulted. - Pulm consulted. Rec conv plasma, remdesivir, and monitoring; next step is intubation if needed - Continue on HFNC, wean as tolerated. Patient needed increase in FiO2 overnight. Awake proning as tolerated. PO hydration. COVID precautions. - Tessalon pearles for cough #DM - Continue home meds - Hypoglycemia protocol - ACHS glucose checks #HTN - Continue home meds #HLD - Continue home meds PCP: Melvin Code status: Full Addendum - Attending - Attending Attestation Date/Time: 04/25/20 2023 I personally evaluated the patient and discussed the management with Dr. Lantigua I agree with the History, Examination, Assessment and Plan documented above with any addition or exceptions noted below - Patient feeling tired. Did not rest due to cough. Afebrile VSS. A/P: 1) Acute hypoxic resp failure due to COVID pneumonia - continue HFNC and wean as tolerated. Continue steroids, doxycycline. 2) DM - BG stable; continue current meds. 3) HTN- stable; continue current meds.
[2020-04-25] MEDS: Fish Oil 1,000 MG CAP PO SCH (09:46)
[2020-04-25] MEDS: Empagliflozin 10 MG TAB PO SCH (09:46)
[2020-04-25] MEDS: Valsartan 80 MG TAB PO SCH (09:46)
[2020-04-25] MEDS: Calcium Carbonate 600 MG + Vit D TAB PO SCH (09:46)
[2020-04-25] MEDS: Dexamethasone 4 MG TAB PO SCH (09:46)
[2020-04-25] MEDS: Enoxaparin Sodium 40 MG/0.4 ML SYRINGE SC SCH ×2 (09:47→21:01)
[2020-04-25] MEDS: metFORMIN 500 MG TAB PO SCH (10:17)
--- NOTE | 2020-04-25 12:13 | PRG ---
DATE OF SERVICE: 04/25/2020 SUBJECTIVE: Clifton Aguilar remains in the MICU, on high flow. He is getting remdesivir, convalescent plasma, and high-dose steroids. OBJECTIVE: VITAL SIGNS: Temperature 98, pulse 91, blood pressure , saturations are 90% on high-flow. 80% FiO2. Respiratory rate is 30. CHEST: Bilateral crackles without any wheezing. CARDIAC: Normal S1 and S2. No gallop. ABDOMEN: No masses. ASSESSMENT: Duncan positive pneumonia, respiratory failure, diabetes. PLAN: . I have added high-dose steroids. I have added doxycycline. Prognosis is guarded. If he does not get any better, he may require intubation and vent support. Job ID: [id number]
[2020-04-25] MEDS: methylPREDNISolone Sod Succ 40 MG VIAL IVP SCH ×2 (13:07→19:01)
[2020-04-25] MEDS: Simvastatin 5 MG TAB PO SCH ×2 (14:37→21:01)
[2020-04-25] MEDS: REMDESIVIR (EUA) 100 MG in Sodium Chloride 0.9% 250 ML 230 ML IV SCH (18:21)
[2020-04-25] MEDS: Albuterol 200 PUFF (6.7GM INHALER) INH SCH ×2 (18:47→19:01)
[2020-04-25] MEDS: Mometasone 200 MCG/Formoterol 5 MCG 120 PUFF INHALER INH SCH (19:02)
--- NOTE | 2020-04-25 20:12 | CON ---
DATE OF CONSULTATION: REASON FOR CONSULTATION: COVID pneumonia. HISTORY OF PRESENT ILLNESS: A 74-year-old who was initially admitted on April 21 by the [facility] with a history of type 2 diabetes, hypertension, and a 1-week history of fever and chills, some cough, mild dyspnea. Initial COVID test was done at his doctor's office, which was negative on the and had a previous negative on the of this month. On arrival, his BP was 165, temperature 101, saturating 96% on room air. Chest x-ray showed a hazy infiltrate in the right middle lung. CT of chest showed bilateral ground-glass infiltrates throughout both lungs. The patient was discharged the next day on fish oil, calcium, aspirin, metformin, pravastatin, and valsartan as well as Decadron to complete a 10-day course. He came right back to the hospital on the , the next day from discharge with worsening dyspnea and cough. Had his tested positive and his initial findings included a BP 119/73, pulse 88, respirations 26, temperature 99.3, O2 saturation 99% on high-flow O2 nasal cannula. Exam showed bilateral inspiratory crackles in the lung exam. Remainder of the examination is not remarkable. The patient is currently sitting on the bed. He is obviously tachypneic with high-flow nasal cannula. He is oriented. No headaches. He does not have any taste in the food and no chest pain. No abdominal pain or diarrhea. No genitourinary symptoms. No joint symptoms. No neurological symptoms. PAST MEDICAL HISTORY: Type 2 diabetes, hyperlipidemia, hypertension, prior pneumothorax, obstructive sleep apnea. PAST SURGICAL HISTORY: Negative. FAMILY HISTORY: Type 2 diabetes. SOCIAL HISTORY: Former smoker, quit in the 70s. Retired. CURRENT MEDICATIONS: 1. Inhaler. 2. Dextrose. 3. Lovenox. 4. Doxycycline. 5. Insulin. 6. Lactated Ringer's. 7. Methylprednisolone 40 q.6. 8. Mometasone. 9. Ondansetron. 10. Remdesivir. 11. Valsartan. PHYSICAL EXAMINATION: VITAL SIGNS: Temperature 99, blood pressure 140/80, heart rate 88, respiratory rate 29, saturating anywhere from 92% to 93% with 60 of high-flow nasal cannula O2. SKIN: Normal. Peripheral IV access. He is voiding in the urinal. HEENT: Ocular movements conjugate. Oral cavity moist. NECK: Supple. He has no lymphadenopathy. LUNGS: With cellophane like inspiratory crackles at the right and left lung hahn up to a 3rd. HEART: S1-S2, regular rate. ABDOMEN: Soft, not distended or tender. No ascites. No bladder distention. No organomegaly. EXTREMITIES: No joint inflammatory activity. Moves all extremities equally. Plantar responses are flexor. NEUROLOGIC: Nonfocal. Speech is normal. He has a hard time in completing sentences because of dyspnea and tachypnea. LABORATORY DATA: White cell count 5.9, hemoglobin 13, platelets 126 with 87% neutrophils. D-dimer 0.38. Ferritin 886. CRP 1166. ASSESSMENT: Type 2 diabetes, hypertension, severe COVID-19 pneumonia. This is the 10th or 11th day of illness, so he is going to the inflammatory phase now and is right at the maximum of his high-flow nasal cannula capabilities, so he is at high risk for ending up in mechanical ventilation. He is on remdesivir and corticosteroids at this time. The patient is also on enoxaparin b.i.d. Job ID: [id number]
[2020-04-25] MEDS: Famotidine 20 MG TAB PO SCH (21:01)
[2020-04-26] MEDS: methylPREDNISolone Sod Succ 40 MG VIAL IVP SCH ×4 (00:09→18:08)
[2020-04-26] MEDS: Lactated Ringer's 1,000 ML IV SCH ×2 (00:33→10:55)
[2020-04-26] MEDS: Benzonatate 100 MG CAP PO PRN ×3 (00:33→21:01)
[2020-04-26] MEDS: Albuterol 200 PUFF (6.7GM INHALER) INH SCH ×4 (02:07→18:30)
[2020-04-26] MEDS: HumaLOG 300 UNITS/3 ML VIAL SC PRN ×3 (05:39→17:07)
--- NOTE | 2020-04-26 06:21 | PDOC.FM ---
- Subjective Subjective: Patient reports he is feeling better this morning. Cough has improved. States he is eating well. - Objective Vital Signs & Weight: Vital Signs (12 hours) Temp Pulse Ox 04/26/20 05:00 93 L 04/26/20 04:00 98.1 F 04/26/20 02:00 91 L 04/26/20 00:54 93 L 04/26/20 00:00 98.0 F 04/25/20 20:00 97.7 F 87 L Weight Weight 89.358 kg Most Recent Monitor Data Heart Rate from ECG 77 NIBP 131/82 NIBP BP-Mean 98 Respiration from ECG 22 SpO2 94 I&O: 04/24/20 04/25/20 04/26/20 06:59 06:59 06:59 Intake Total 4190 2370 Output Total 3800 2700 Balance 390 -330 Result Diagrams: 04/26/20 09:38 04/26/20 09:38 Phys Exam - Physical Examination Constitutional: NAD HEENT: moist MMs, sclera anicteric Neck: supple, full ROM crackles throughout Cardiovascular: RRR, no significant murmur Gastrointestinal: soft, positive bowel sounds Musculoskeletal: no edema, pulses present Neurological: non-focal, moves all 4 limbs Psychiatric: normal affect Skin: no rash Dx/Plan (1) Acute respiratory failure with hypoxia Code(s): J96.01 - ACUTE RESPIRATORY FAILURE WITH HYPOXIA Status: Acute (2) Pneumonia due to COVID-19 virus Code(s): U07.1 - COVID-19; J12.89 - OTHER VIRAL PNEUMONIA Status: Acute - Plan Plan: Patient is a 74M with PMHx of DM, HLD, and HTN that is admitted for: #Acute Hypoxic Resp failure 2/2 COVID PNA (+ on 04/22, Day #9 of symptoms) - Patient's steroids increased to 40mg methylprednisolone Q6H 04/25, Albuterol PRN - Received Conv plasma and started remdesivir 04/24. ID consulted. Dr. Cardoza believes patient is likely in the inflammatory phase at this point - Pulm consulted. Rec conv plasma, remdesivir, added doxycycline 04/25, and monitoring; next step is intubation if needed, patient is near max high-flow - Continue on HFNC, possible intubation in next day or so pending patient's respiratory status. Patient needed increase in FiO2 overnight. Awake proning as tolerated. PO hydration. COVID precautions. - Tessalon pearles for cough #DM - Continue home meds - Hypoglycemia protocol - ACHS glucose checks #HTN - Continue home meds #HLD - Continue home meds PCP: Melvin Code status: Full Addendum - Attending - Attending Attestation Date/Time: 04/26/20 [id number] I personally evaluated the patient and discussed the management with Dr. Lantigua I agree with the History, Examination, Assessment and Plan documented above with any addition or exceptions noted below - Patient feeling a little better. Afebrile VSS. A/P: 1) Acute hypoxic resp failure due to COVID pneumonia- wean HFNC as tolerated. On remdesivir, steroids and doxycycline. 2) DM- continue home meds; may need to add basal insulin as BG elevated most likely due to the steroids. 3) HTN- stable
[2020-04-26] MEDS: Calcium Carbonate 600 MG + Vit D TAB PO SCH (08:36)
[2020-04-26] MEDS: Famotidine 20 MG TAB PO SCH ×2 (08:36→21:01)
[2020-04-26] MEDS: metFORMIN 500 MG TAB PO SCH (08:36)
[2020-04-26] MEDS: Valsartan 80 MG TAB PO SCH (08:36)
[2020-04-26] MEDS: Enoxaparin Sodium 40 MG/0.4 ML SYRINGE SC SCH ×2 (08:36→21:01)
[2020-04-26] MEDS: Fish Oil 1,000 MG CAP PO SCH (08:36)
[2020-04-26] MEDS: Empagliflozin 10 MG TAB PO SCH (08:36)
[2020-04-26] MEDS: Mometasone 200 MCG/Formoterol 5 MCG 120 PUFF INHALER INH SCH ×2 (08:37→18:30)
[2020-04-26 09:59] LABS: #Lymphocytes 0.6 thou/uL (1.20-3.40); #Monocytes 0.7 thou/uL (0.11-0.59); #Neutrophils 10.3 thou/uL (1.40-6.50); %Basophils 0.2 % (0.0-1.0); %Eosinophils 0.3 % (0.0-10.0); %Lymphocytes 5.5 % (21.0-51.0); %Monocytes 5.6 % (0.0-10.0); %Neutrophils 88.4 % (42.0-75.0); Hemoglobin 14.5 g/dL (14.0-18.0); Mean Corpuscular HGB CONC 34.4 g/dL (32.0-36.0); Mean Corpuscular Hemoglobin 31.5 pg (27.0-31.0); Mean Corpuscular Volume 91.7 fL (78.0-98.0); Mean Platelet Volume 8.4 fL (7.4-10.4); Platelet Count 205 thou/uL (130-400); RBC Distribution Width 11.9 % (11.5-14.5); Red Blood Cell (RBC) Count 4.62 mill/uL (4.70-6.10); White Blood Cell (WBC) Count 11.7 thou/uL (4.8-10.8)
[2020-04-26 10:22] LABS: ALT (SGPT) 25 U/L (8-55); AST (SGOT) 36 U/L (5-34); Albumin 3.3 g/dL (3.4-4.8); Alkaline Phosphatase 60 U/L (40-110); Anion Gap 19 mmol/L (10-20); BUN (Urea Nitrogen) 30 mg/dL (8.4-25.7); Bilirubin, Total 0.6 mg/dL (0.2-1.2); CRP (Inflammatory) 8.21 mg/dL (= or < 0.5); Calc. Creatinine Clearance 103 mL/min (70-130); Calcium 8.8 mg/dL (7.8-10.44); Carbon Dioxide 18 mmol/L (23-31); Chloride 103 mmol/L (98-107); Glucose 222 mg/dL (83-110); Potassium 4.4 mmol/L (3.5-5.1); Protein, Total 6.3 g/dL (5.8-8.1); Sodium 136 mmol/L (136-145)
--- NOTE | 2020-04-26 10:29 | RAD ---
PORTABLE CHEST: Date: 04/26/2020 HISTORY: COVID pneumonia. COMPARISON: 04/23/2020 exam. FINDINGS: Heart size appears slightly enlarged. Bilateral infiltrates are stable. IMPRESSION: Stable exam. POS: PAULINO
--- NOTE | 2020-04-26 11:55 | PRG ---
DATE OF SERVICE: 04/26/2020 SUBJECTIVE: Clifton Aguilar remains in the MICU. He is sitting in a chair. He is still short of breath, but is somewhat better. OBJECTIVE: VITAL SIGNS: Temperature is 98, pulse 92, blood pressure 130/82, sats 100%. CHEST: Bilateral crackles. CARDIAC: Normal S1, S2. No gallops. ABDOMEN: No masses. LABORATORY DATA: His x-ray shows infiltrates, left greater than right. His C-reactive protein is still elevated . ASSESSMENT AND PLAN: Duncan positive pneumonia, respiratory failure. Empiric antibiotics, Lovenox twice a day, Pepcid, high-dose steroids, remdesivir, and plasma. We will follow. Job ID: [id number]
[2020-04-26] MEDS: REMDESIVIR (EUA) 100 MG in Sodium Chloride 0.9% 250 ML 230 ML IV SCH (18:09)
[2020-04-26] MEDS: Simvastatin 5 MG TAB PO SCH (21:01)
[2020-04-27] MEDS: methylPREDNISolone Sod Succ 40 MG VIAL IVP SCH ×5 (00:48→23:32)
[2020-04-27] MEDS: Lactated Ringer's 1,000 ML IV SCH ×3 (00:49→23:32)
[2020-04-27] MEDS: Albuterol 200 PUFF (6.7GM INHALER) INH SCH ×4 (01:53→18:26)
[2020-04-27] MEDS: HumaLOG 300 UNITS/3 ML VIAL SC PRN ×2 (06:18→17:27)
[2020-04-27] MEDS: Mometasone 200 MCG/Formoterol 5 MCG 120 PUFF INHALER INH SCH ×2 (06:24→18:26)
--- NOTE | 2020-04-27 06:46 | PDOC.FM ---
- Subjective Subjective: Patient doing okay this morning; was able to talk to patient while he had his on speaker phone; discussed that patient continues to requiring increasing amounts of oxygen on high flow. Patient continues to ask why he is still here - Objective Vital Signs & Weight: Vital Signs (12 hours) Temp Pulse Ox 04/27/20 04:00 98.6 F 04/27/20 00:00 98.0 F 91 L 04/26/20 20:00 97.5 F L Weight Weight 89.358 kg Most Recent Monitor Data Heart Rate from ECG 87 NIBP 144/76 NIBP BP-Mean 98 Respiration from ECG 34 SpO2 88 I&O: 04/25/20 04/26/20 04/27/20 06:59 06:59 06:59 Intake Total 4190 2370 1790 Output Total 3800 2700 1000 Balance 390 -330 790 Result Diagrams: 04/26/20 09:38 04/26/20 09:38 Phys Exam - Physical Examination in mild respiratory distress HEENT: moist MMs, sclera anicteric Neck: supple, full ROM coarse breath sounds throughout Cardiovascular: RRR Gastrointestinal: soft, no distention Musculoskeletal: no edema, pulses present Neurological: non-focal, moves all 4 limbs Psychiatric: normal affect Skin: no rash Dx/Plan (1) Acute respiratory failure with hypoxia Code(s): J96.01 - ACUTE RESPIRATORY FAILURE WITH HYPOXIA Status: Acute (2) Pneumonia due to COVID-19 virus Code(s): U07.1 - COVID-19; J12.89 - OTHER VIRAL PNEUMONIA Status: Acute - Plan Plan: Patient is a 74M with PMHx of DM, HLD, and HTN that is admitted for: #Acute Hypoxic Resp failure 2/2 COVID PNA (+ on 04/22, Day #9 of symptoms) - Patient's steroids increased to 40mg methylprednisolone Q6H 04/25, Albuterol PRN - Received Conv plasma and started remdesivir 04/24. ID consulted. Dr. Cardoza believes patient is likely in the inflammatory phase at this point - Pulm consulted. Rec conv plasma, remdesivir, added doxycycline 04/25, and monitoring; next step is intubation if needed, patient is near max high-flow - Continue on HFNC, possible intubation today or tomorrow pending patient's resp iratory status. Patient needed increase in FiO2 overnight. Awake proning as tolerated. PO hydration. COVID precautions. - Tessalon pearles for cough #DM - Continue home meds - Hypoglycemia protocol - ACHS glucose checks - Lantus added to regimen today as blood glucose elevated, likely 2/2 steroids #HTN - Continue home meds #HLD - Continue home meds PCP: Melvin Code status: Full Addendum - Attending - Attending Attestation Date/Time: 04/27/20 9427 I personally evaluated the patient and discussed the management with Dr. Lantigua I agree with the History, Examination, Assessment and Plan documented above with any addition or exceptions noted below - Patient reports feeling the same. Poor appetite. Afebrile VSS. A/P: 1) Acute resp failure secondary to COVID pneumonia - requiring high settings on HFNC concern for need to possibly proceed with intubation. Pulmonary monitoring and appreciate assistance. Continue remdesivir, steroids. 2) HTN- stable. 3) DM- insulin adjusted.
[2020-04-27] MEDS: Calcium Carbonate 600 MG + Vit D TAB PO SCH (08:42)
[2020-04-27] MEDS: Enoxaparin Sodium 40 MG/0.4 ML SYRINGE SC SCH ×2 (08:42→19:39)
[2020-04-27] MEDS: Fish Oil 1,000 MG CAP PO SCH (08:42)
[2020-04-27] MEDS: Famotidine 20 MG TAB PO SCH ×2 (08:42→19:39)
[2020-04-27] MEDS: metFORMIN 500 MG TAB PO SCH (08:42)
[2020-04-27] MEDS: Empagliflozin 10 MG TAB PO SCH (08:43)
[2020-04-27] MEDS: Valsartan 80 MG TAB PO SCH (08:43)
--- NOTE | 2020-04-27 10:00 | PRG ---
DATE OF SERVICE: 04/27/2020 SUBJECTIVE: Clifton Aguilar is sitting on high-flow. OBJECTIVE: VITAL SIGNS: His temperature is 98, sats 90%, blood pressure , pulse 80. CHEST: No wheezing. No crackles. CARDIAC: Normal S1, S2. No gallops. ABDOMEN: No masses. IMPRESSION: Respiratory failure, juan positive pneumonia. PLAN: Continue remdesivir. He has had plasma, high-dose steroids. PT, supportive care. We will follow. Job ID: [id number]
[2020-04-27] MEDS: Insulin Glargine 7 UNITS in Pre-Filled Syringe 1 EACH SC SCH (11:37)
[2020-04-27] MEDS: REMDESIVIR (EUA) 100 MG in Sodium Chloride 0.9% 250 ML 230 ML IV SCH (18:26)
[2020-04-27] MEDS: Simvastatin 5 MG TAB PO SCH (19:39)
[2020-04-28] MEDS: Albuterol 200 PUFF (6.7GM INHALER) INH SCH ×4 (01:04→21:10)
[2020-04-28] MEDS: Lactated Ringer's 1,000 ML IV SCH ×3 (01:04→14:14)
[2020-04-28 03:35] LABS: #Basophils 0.1 thou/uL (0.0-0.2); #Lymphocytes 0.3 thou/uL (1.20-3.40); #Monocytes 0.5 thou/uL (0.11-0.59); #Neutrophils 9.9 thou/uL (1.40-6.50); %Basophils 0.6 % (0.0-1.0); %Eosinophils 0.2 % (0.0-10.0); %Lymphocytes 2.9 % (21.0-51.0); %Monocytes 4.4 % (0.0-10.0); %Neutrophils 91.9 % (42.0-75.0); Hemoglobin 14.1 g/dL (14.0-18.0); Mean Corpuscular Hemoglobin 32.3 pg (27.0-31.0); Mean Corpuscular Volume 92.3 fL (78.0-98.0); Mean Platelet Volume 8.2 fL (7.4-10.4); Platelet Count 165 thou/uL (130-400); RBC Distribution Width 11.8 % (11.5-14.5); Red Blood Cell (RBC) Count 4.37 mill/uL (4.70-6.10); White Blood Cell (WBC) Count 10.8 thou/uL (4.8-10.8)
[2020-04-28 03:54] LABS: ALT (SGPT) 27 U/L (8-55); AST (SGOT) 39 U/L (5-34); Albumin 2.9 g/dL (3.4-4.8); Alkaline Phosphatase 94 U/L (40-110); Anion Gap 14 mmol/L (10-20); BUN (Urea Nitrogen) 23 mg/dL (8.4-25.7); Bilirubin, Direct 0.4 mg/dL (0.1-0.3); Bilirubin, Total 0.6 mg/dL (0.2-1.2); Calc. Creatinine Clearance 115 mL/min (70-130); Carbon Dioxide 21 mmol/L (23-31); Chloride 104 mmol/L (98-107); Glucose 171 mg/dL (83-110); Potassium 4.3 mmol/L (3.5-5.1); Protein, Total 5.4 g/dL (5.8-8.1); Sodium 135 mmol/L (136-145)
[2020-04-28] MEDS: methylPREDNISolone Sod Succ 40 MG VIAL IVP SCH ×4 (05:01→23:42)
--- NOTE | 2020-04-28 05:50 | PDOC.FM ---
- Subjective Subjective: Patient has continued to struggle with his respiratory status. Tried BiPAP overnight and struggled with this. Satting upper 80s-low 90s on HFNC this morning. - Objective Vital Signs & Weight: Vital Signs (12 hours) Temp Pulse Ox 04/28/20 04:00 97.6 F 04/27/20 23:39 97.7 F 04/27/20 20:00 97.7 F 95 Weight Weight 89.358 kg Most Recent Monitor Data Heart Rate from ECG 74 NIBP 155/90 NIBP BP-Mean 111 Respiration from ECG 34 SpO2 96 I&O: 04/26/20 04/27/20 04/28/20 06:59 06:59 06:59 Intake Total 2370 3654 4250 Output Total 2700 2400 2315 Balance -330 1254 1935 Result Diagrams: 04/28/20 03:18 04/28/20 03:18 Phys Exam - Physical Examination mild respiratory distress HEENT: moist MMs Neck: supple, full ROM Respiratory: clear to auscultation bilateral decreased air movement throughout Cardiovascular: RRR Gastrointestinal: soft, no distention mild upper extremity edema Neurological: moves all 4 limbs Psychiatric: normal affect Skin: no rash Dx/Plan (1) Acute respiratory failure with hypoxia Code(s): J96.01 - ACUTE RESPIRATORY FAILURE WITH HYPOXIA Status: Acute (2) Pneumonia due to COVID-19 virus Code(s): U07.1 - COVID-19; J12.89 - OTHER VIRAL PNEUMONIA Status: Acute - Plan Plan: Patient is a 74M with PMHx of DM, HLD, and HTN that is admitted for: #Acute Hypoxic Resp failure 2/2 COVID PNA (+ on 04/22, Day #9 of symptoms) - Patient's steroids increased to 40mg methylprednisolone Q6H 04/25, Albuterol PRN - Received Conv plasma and started remdesivir 04/24. ID consulted. - Pulm consulted. Rec conv plasma, remdesivir, added doxycycline 04/25, and monitoring; next step is intubation if needed, patient put on biPAP yesterday and struggled with it overnight. Moved back to HFNC. - Continue on HFNC, possible intubation today or tomorrow pending patient's respiratory status. Awake proning as tolerated. PO hydration. COVID precautions. - Tessalon pearles for cough #DM - Continue home meds - Hypoglycemia protocol - ACHS glucose checks - Lantus added to regimen 04/27 as blood glucose elevated, likely 2/2 steroids #HTN - Continue home meds #HLD - Continue home meds PCP: Melvin Code status: Full Addendum - Attending - Attending Attestation Date/Time: 04/28/20 [id number] I personally evaluated the patient and discussed the management with Dr. Lantigua I agree with the History, Examination, Assessment and Plan documented above with any addition or exceptions noted below - Patient sitting up in chair on HFNC; had difficulty tolerating BiPap. Afebrile VSS. A/P: 1) Acute resp failure due to COVID pneumonia - Continue HFNC/Bipap. If has persistent sats in 80s will need intubation. Continue steroids, albuterol. Inflammatory markers downtrending. 2) DM- BG improved; continue current meds
[2020-04-28] MEDS: Valsartan 80 MG TAB PO SCH (08:39)
[2020-04-28] MEDS: Famotidine 20 MG TAB PO SCH ×2 (08:39→19:48)
[2020-04-28] MEDS: Fish Oil 1,000 MG CAP PO SCH (08:39)
[2020-04-28] MEDS: Calcium Carbonate 600 MG + Vit D TAB PO SCH (08:39)
[2020-04-28] MEDS: metFORMIN 500 MG TAB PO SCH (08:39)
[2020-04-28] MEDS: Enoxaparin Sodium 40 MG/0.4 ML SYRINGE SC SCH ×2 (08:40→19:48)
[2020-04-28] MEDS: Empagliflozin 10 MG TAB PO SCH (08:40)
[2020-04-28] MEDS: Insulin Glargine 7 UNITS in Pre-Filled Syringe 1 EACH SC SCH (08:40)
[2020-04-28] MEDS: Mometasone 200 MCG/Formoterol 5 MCG 120 PUFF INHALER INH SCH ×2 (08:42→17:38)
--- NOTE | 2020-04-28 11:08 | PRG ---
DATE OF SERVICE: 04/28/2020 SUBJECTIVE: Clifton Aguilar remains very hypoxic, on maximum high flow. His saturations are still low. OBJECTIVE: VITAL SIGNS: He is now on BiPAP with sats about 88% to 90%, blood pressure 15/88, pulse 80. CHEST: No wheezing. No crackles. CARDIAC: Normal S1, S2. No gallops. ABDOMEN: No masses. LABORATORY DATA: Creatinine is . Liver function is normal. White count 10,000. Last chest x-ray showed bilateral infiltrates. IMPRESSION: Duncan positive pneumonia, respiratory failure, severe hypoxemia. PLAN: We are still trying to avoid intubating the patient, high-dose steroids, still on remdesivir. He has had plasma. Continue supportive care. Obviously, if condition gets worse, he is going to probably get intubated. Job ID: [id number]
[2020-04-28] MEDS: HumaLOG 300 UNITS/3 ML VIAL SC PRN ×2 (11:22→21:13)
--- NOTE | 2020-04-28 15:45 | PDOC.PALCO ---
Palliative Care Consult - Consult Details Requesting Physician: Dr Presley Reason for Consult: goals of care, complex decision-making - Pertinent HPI 74 year old male who presented to the emergency room secondary to shortness of breath, he was discharged from the hospital day prior to representing for Covid pnumonia. He received IV decadron in the emergency room with abx therapy and high flow oxygen. Admitted secondary to need for elevated respiratory support and medical management. is also Covid positive and recovering in the home setting. - Pertinent PMH DM, HDL, HTN, history of pneumothorax - Social History Smoking Status: Former smoker Smoking: quit greater than 1 year Alcohol Use: occasional Drug Use History: none Living Situation: - Medications MAR Reviewed: Yes - Allergies Allergies/Adverse Reactions: Allergies Allergy/AdvReac Type Severity Reaction Status Date / Time No Known Drug Allergies Allergy Verified 04/22/20 01:21 - Subjective On highflow today, did not tolerate Bipap last night. Denies any specific complaints other than respiratory and weakness. - ROS Constitutional: alert, weakness ENT: dry mouth, other (Denies throat irritation at todays visit) Respiratory: shortness of breath, shortness of breath with extertion, other (cough) Cardiology: light headedness, orthopnea Gastrointestinal: other (Denies vomiting or nausea) Musculoskeletal: arthritis/arthralgias Skin: other (Denie srash or puritis) - Objective Vital Signs: Vital Signs - Most Recent Temp Pulse Resp BP Pulse Ox 96.5 F L 80 95 04/28/20 10:54 04/27/20 14:11 04/27/20 20:00 Palliative Performance Scale: 60 - Physical Exam Constitutional: ill appearing HEENT: EOMI, moist MMs, sclera anicteric Respiratory: no wheezing, diminished lung sound, labored respirations Cardiovascular: RRR Gastrointestinal: soft, non-tender, positive bowel sounds Genitourinary: continent Musculoskeletal: no cyanosis, edema present Neurology: moves all 4 limbs, no focal deficits Skin: cap refill <2 seconds, no lesions, no rash Psychiatric: A&O x 3 - Problem List (1) Palliative care encounter Code(s): Z51.5 - ENCOUNTER FOR PALLIATIVE CARE Current Visit: Yes Status: Acute (2) Acute respiratory failure with hypoxia Code(s): J96.01 - ACUTE RESPIRATORY FAILURE WITH HYPOXIA Current Visit: Yes Status: Acute (3) Pneumonia due to COVID-19 virus Code(s): U07.1 - COVID-19; J12.89 - OTHER VIRAL PNEUMONIA Current Visit: Yes Status: Acute - Plan/Recommendations Plan: Palliative care team has met with patient and discussed care with his . He us understanding of respiratory status. We discussed if needed would he desire to be intubated, he confirmed he did. However, stated he would not desire a trach or peg if ever needed. His goal is to return to the home setting, with hopes of before Thanksgiving. *Full resuscitation *Aggressive measures and treatment for recovery Palliative Care will sign off as goal discussed as well as resuscitation status. Please reconsult our team if we can revisit goal of care or readdress resuscitation status in the future. [50] minutes spent on this encounter with >50% of the time in counseling and coordination of care. Thank you for this very appropriate consult.
[2020-04-28] MEDS: REMDESIVIR (EUA) 100 MG in Sodium Chloride 0.9% 250 ML 230 ML IV SCH (18:23)
[2020-04-28] MEDS: Simvastatin 5 MG TAB PO SCH (19:48)
[2020-04-29] MEDS: Albuterol 200 PUFF (6.7GM INHALER) INH SCH ×4 (00:30→18:08)
--- NOTE | 2020-04-29 05:32 | PDOC.FM ---
- Subjective Subjective: Patient doing well this morning. Ate a good amount of his breakfast. Discussed plans to continue HFNC at this time, patient agreeable. - Objective Vital Signs & Weight: Vital Signs (12 hours) Temp Pulse Ox 04/29/20 04:00 97.8 F 04/29/20 00:00 97.4 F L 04/28/20 20:00 97.4 F L 92 L Weight Weight 89.358 kg Most Recent Monitor Data Heart Rate from ECG 70 NIBP 153/91 NIBP BP-Mean 111 Respiration from ECG 32 SpO2 96 I&O: 04/27/20 04/28/20 04/29/20 06:59 06:59 06:59 Intake Total 3654 4250 Output Total 2400 2315 1989 Balance 4 1934 Result Diagrams: 04/28/20 03:18 04/28/20 03:18 Phys Exam - Physical Examination Constitutional: NAD HEENT: moist MMs, sclera anicteric Neck: supple, full ROM Respiratory: no wheezing, no rales Cardiovascular: RRR, no significant murmur Gastrointestinal: soft, non-tender Musculoskeletal: no edema, pulses present Neurological: non-focal, moves all 4 limbs Psychiatric: normal affect Skin: no rash, normal turgor Dx/Plan (1) Acute respiratory failure with hypoxia Code(s): J96.01 - ACUTE RESPIRATORY FAILURE WITH HYPOXIA Status: Acute (2) Pneumonia due to COVID-19 virus Code(s): U07.1 - COVID-19; J12.89 - OTHER VIRAL PNEUMONIA Status: Acute - Plan Plan: Patient is a 74M with PMHx of DM, HLD, and HTN that is admitted for: #Acute Hypoxic Resp failure 2/2 COVID PNA (+ on 04/22, Day #9 of symptoms) - Patient's steroids increased to 40mg methylprednisolone Q6H 04/25, Albuterol PRN - Received Conv plasma and started remdesivir 04/24. ID consulted. - Pulm consulted. Rec conv plasma, remdesivir, added doxycycline 04/25, and monitoring; next step is intubation if needed, patient put on BiPAP overnight and back on HFNC this morning - BID lovenox - Continue on HFNC, possible intubation today or tomorrow pending patient's respiratory status. Awake proning as tolerated. PO hydration. COVID precautions. - Tessalon pearles for cough #DM - Continue home meds - Hypoglycemia protocol - ACHS glucose checks - Lantus added to regimen 04/27 as blood glucose elevated, likely 2/2 steroids #HTN - Continue home meds #HLD - Continue home meds DVTppx: lovenox BID Diet: HH/CC Diet PCP: Melvin Code status: Full Addendum - Attending - Attending Attestation Date/Time: 04/29/20 8264 I personally evaluated the patient and discussed the management with Dr. Lantigua I agree with the History, Examination, Assessment and Plan documented above with any addition or exceptions noted below- Pateint on Bipap; breathing easier on Bipap. Afebrile VSS. A/P: 1) Acute resp failure secondary to COVID pneumonia - continue BiPap, steroids. 2) DM- continue basal insulin and adjust as needed.
[2020-04-29] MEDS: Lactated Ringer's 1,000 ML IV SCH ×2 (07:17→20:58)
[2020-04-29] MEDS: methylPREDNISolone Sod Succ 40 MG VIAL IVP SCH ×3 (07:17→18:07)
[2020-04-29] MEDS: Mometasone 200 MCG/Formoterol 5 MCG 120 PUFF INHALER INH SCH ×2 (07:17→18:07)
[2020-04-29] MEDS: Enoxaparin Sodium 40 MG/0.4 ML SYRINGE SC SCH ×2 (08:48→20:57)
[2020-04-29] MEDS: Fish Oil 1,000 MG CAP PO SCH (08:48)
[2020-04-29] MEDS: Famotidine 20 MG TAB PO SCH ×2 (08:48→20:57)
[2020-04-29] MEDS: metFORMIN 500 MG TAB PO SCH (08:48)
[2020-04-29] MEDS: Calcium Carbonate 600 MG + Vit D TAB PO SCH (08:48)
[2020-04-29] MEDS: Empagliflozin 10 MG TAB PO SCH (08:48)
[2020-04-29] MEDS: Valsartan 80 MG TAB PO SCH (08:48)
[2020-04-29] MEDS: Insulin Glargine 9 UNITS in Pre-Filled Syringe 1 EACH SC SCH (08:49)
[2020-04-29] MEDS: HumaLOG 300 UNITS/3 ML VIAL SC PRN (09:05)
--- NOTE | 2020-04-29 10:05 | PRG ---
DATE OF SERVICE: SUBJECTIVE: Clifton Aguilar remains on MICU between high-flow and BiPAP. OBJECTIVE: VITAL SIGNS: Temperature 98, pulse 75, sats 95% on 80% FiO2, and blood pressure 140/77. CHEST: No wheezing. No crackles. CARDIAC: Normal S1, S2. No gallops. ABDOMEN: No masses. IMPRESSION: Respiratory failure, juan positive pneumonia. I see no significant improvement in the patient's care. Unfortunately, not much to offer remdesivir, plasma, high-dose steroids. Continue present treatment. Prognosis remains grave. Continue to follow. Job ID: [id number]
[2020-04-29] MEDS: Simvastatin 5 MG TAB PO SCH (20:57)
[2020-04-30] MEDS: methylPREDNISolone Sod Succ 40 MG VIAL IVP SCH ×4 (00:31→18:01)
[2020-04-30] MEDS: Albuterol 200 PUFF (6.7GM INHALER) INH SCH ×4 (02:14→18:08)
[2020-04-30] MEDS: Mometasone 200 MCG/Formoterol 5 MCG 120 PUFF INHALER INH SCH ×2 (06:34→18:08)
--- NOTE | 2020-04-30 06:47 | PDOC.FM ---
- Subjective Subjective: Patient tolerating bipap. When took of he desaturated to 88% within a few seconds. He is hard of hearing but nods yes when I ask if his breathing is better but has trouble swallowing. No other concerns per nursing at this time. - Objective MAR Reviewed: Yes Vital Signs & Weight: Vital Signs (12 hours) Temp Pulse Pulse Ox 04/30/20 03:43 97 F L 04/30/20 03:04 76 04/30/20 00:00 97.6 F 04/29/20 20:00 97.6 F 94 L Weight Weight 89.358 kg Most Recent Monitor Data Heart Rate from ECG 82 NIBP 132/87 NIBP BP-Mean 102 Respiration from ECG 26 SpO2 97 I&O: 04/28/20 04/29/20 04/30/20 06:59 06:59 06:59 Intake Total 4250 1360 1115 Output Total 2315 8580 1890 Balance 1935 -910 -775 Result Diagrams: 04/30/20 07:07 04/30/20 07:07 Phys Exam - Physical Examination Constitutional: NAD HEENT: PERRLA, moist MMs crackles tachycardic Gastrointestinal: soft, non-tender Musculoskeletal: no edema Neurological: non-focal, moves all 4 limbs Skin: cap refill <2 seconds Dx/Plan - Plan Plan: Patient is a 74M with PMHx of DM, HLD, and HTN that is admitted for: #Acute Hypoxic Resp failure 2/2 COVID PNA (+ on 04/22, Day #9 of symptoms) - Patient's steroids increased to 40mg methylprednisolone Q6H 04/25, Albuterol PRN - Received Conv plasma and started remdesivir 04/24. ID consulted. - Pulm consulted. Rec conv plasma, remdesivir, added doxycycline 04/25, and monitoring; next step is intubation if needed, patient put on BiPAP overnight and currently tolerating -CXR appears worse this AM, pending official read - BID lovenox - Tessalon pearles for cough -Inc to mIVF since on Bipap #DM - Continue home meds - Hypoglycemia protocol - ACHS glucose checks - Lantus added to regimen 04/27 as blood glucose elevated, likely 2/2 steroids #HTN - Continue home meds #HLD - Continue home meds DVTppx: lovenox BID Diet: HH/CC Diet PCP: Melvin Code status: Full Addendum - Attending - Attending Attestation Date/Time: 04/30/20 726 I personally evaluated the patient and discussed the management with Dr. Mckeon I agree with the History, Examination, Assessment and Plan documented above with any addition or exceptions noted below - Patient tolerating BiPap. Afebrile VSS. A/P: 1) Acute resp failure secondary to COVID pneumonia- continue BiPap; wean as tolerated. 2) DM- stable; continue to adjust insulin as needed. May need alternate nutrition/tube feeds if continues on BiPap.
[2020-04-30 07:36] LABS: Anion Gap 16 mmol/L (10-20); BUN (Urea Nitrogen) 24 mg/dL (8.4-25.7); Band 9 % (5-11); Calc. Creatinine Clearance 115 mL/min (70-130); Calcium 8.4 mg/dL (7.8-10.44); Carbon Dioxide 23 mmol/L (23-31); Chloride 104 mmol/L (98-107); Glucose 129 mg/dL (83-110); Hemoglobin 15.2 g/dL (14.0-18.0); Lymphocytes 1 % (21-51); MDiff Complete? YES; Mean Corpuscular HGB CONC 34.1 g/dL (32.0-36.0); Mean Corpuscular Hemoglobin 31.8 pg (27.0-31.0); Mean Corpuscular Volume 93.1 fL (78.0-98.0); Mean Platelet Volume 7.7 fL (7.4-10.4); Monocytes 5 % (0-10); Neutrophil 85 % (42-75); Platelet Count 212 thou/uL (130-400); Potassium 4.9 mmol/L (3.5-5.1); RBC Distribution Width 12.4 % (11.5-14.5); Red Blood Cell (RBC) Count 4.79 mill/uL (4.70-6.10); Sodium 138 mmol/L (136-145)
[2020-04-30] MEDS: Valsartan 80 MG TAB PO SCH (08:51)
[2020-04-30] MEDS: Enoxaparin Sodium 40 MG/0.4 ML SYRINGE SC SCH ×2 (08:51→20:15)
[2020-04-30] MEDS: Famotidine 20 MG TAB PO SCH ×2 (08:51→20:15)
--- NOTE | 2020-04-30 09:08 | RAD ---
EXAM: Chest one view: HISTORY: Follow-up Covid pneumonia COMPARISON: 04/26/2020 FINDINGS: Progressive extensive bilateral alveolar and groundglass opacity changes throughout both lungs with v matty poor inspiratory effort showing definite worsening when compared to the prior study. Heart size: Within normal limits. IMPRESSION: Worsening progressive bilateral pneumonia.
[2020-04-30] MEDS: Calcium Carbonate 600 MG + Vit D TAB PO SCH (09:20)
[2020-04-30] MEDS: Fish Oil 1,000 MG CAP PO SCH (09:20)
[2020-04-30] MEDS: Insulin Glargine 9 UNITS in Pre-Filled Syringe 1 EACH SC SCH (09:20)
[2020-04-30] MEDS: Lactated Ringer's 1,000 ML IV SCH ×2 (11:09→18:12)
--- NOTE | 2020-04-30 15:08 | EKG ---
Test Reason : Blood Pressure : / mmHG Vent. Rate : 087 BPM Atrial Rate : 087 BPM P-R Int : 150 ms QRS Dur : 090 ms QT Int : 344 ms P-R-T Axes : 084 -28 002 degrees QTc Int : 413 ms Normal sinus rhythm Normal ECG Confirmed by VALDEMAR RECINOS ([id number]), photography editor VIVIAN BLAS ([id number]) on 04/30/2020 3:08:03 PM Referred By: Confirmed By:VALDEMAR RECINOS
[2020-04-30] MEDS: Simvastatin 5 MG TAB PO SCH (20:15)
[2020-05-01] MEDS: methylPREDNISolone Sod Succ 40 MG VIAL IVP SCH ×4 (00:18→18:08)
[2020-05-01] MEDS: Lactated Ringer's 1,000 ML IV SCH ×3 (00:38→18:08)
[2020-05-01] MEDS: Albuterol 200 PUFF (6.7GM INHALER) INH SCH ×4 (01:15→20:32)
[2020-05-01] MEDS: HumaLOG 300 UNITS/3 ML VIAL SC PRN ×3 (06:04→15:51)
--- NOTE | 2020-05-01 06:15 | PDOC.FM ---
- Subjective Subjective: Per nursing patient is not able to tolerate being off of bipap for very long with desaturation. Pt is hard of hearing but he states his breathing is better, no complaints at this time. On bipap and tolerating well. - Objective MAR Reviewed: Yes Vital Signs & Weight: Vital Signs (12 hours) Temp Pulse Pulse Ox 05/01/20 04:00 97.3 F L 05/01/20 00:36 85 05/01/20 00:35 97 05/01/20 00:00 97.3 F L 04/30/20 20:00 98.1 F 96 Weight Weight 89.358 kg Most Recent Monitor Data Heart Rate from ECG 90 NIBP 117/46 NIBP BP-Mean 69 Respiration from ECG 27 SpO2 97 I&O: 04/29/20 04/30/20 05/01/20 06:59 06:59 06:59 Intake Total 1360 2180 1110 Output Total 2270 2240 900 Balance -910 -60 210 Result Diagrams: 04/30/20 07:07 04/30/20 07:07 Phys Exam - Physical Examination Constitutional: NAD HEENT: PERRLA, sclera anicteric on bipap Cardiovascular: RRR, no significant murmur Gastrointestinal: soft, non-tender Musculoskeletal: no edema Neurological: non-focal, moves all 4 limbs Deviation from normal: anxious affect Dx/Plan - Plan Plan: Patient is a 74M with PMHx of DM, HLD, and HTN that is admitted for: 05/01 update: -Patient breathing improved subjectively -Bipap FiO2 80%, tolerating well -CXR worse on 04/30 -Stable with guarded prognosis -Trial off of Bipap for ensure feeds, continue mIVF -Plan to up date family today #Acute Hypoxic Resp failure 2/2 COVID PNA (+ on 04/22, Day #9 of symptoms) - Patient's steroids increased to 40mg methylprednisolone Q6H 04/25, Albuterol PRN - Received Conv plasma and started remdesivir 04/24. ID consulted. - Pulm consulted. Rec conv plasma, remdesivir, added doxycycline 04/25, and monitoring; next step is intubation if needed, patient put on BiPAP overnight and currently toleratin - BID lovenox - Tessalon pearles for cough #DM - Continue home meds - Hypoglycemia protocol - ACHS glucose checks - Shaan added to regimen 04/27 as blood glucose elevated, likely 2/2 steroids #HTN - Continue home meds #HLD - Continue home meds DVTppx: lovenox BID Diet: HH/CC Diet PCP: Melvin Code status: Full Addendum - Attending - Attending Attestation Date/Time: 05/01/20 8332 I personally evaluated the patient and discussed the management with Dr. Mckeon I agree with the History, Examination, Assessment and Plan documented above with any addition or exceptions noted below - Patient continuing on BiPap. Afebrile VSS. A/P: 1) Acute resp failure secondary to COVID pneumonia - continue BiPap; unable to wean at this time. Continue current support. 2) DM- stable; continue current meds. 3) Nutrition- eating well till yesterday; continue to monitor and if unable to wean BiPap; consider dobhoff/NGT for enteral nutrition.
[2020-05-01] MEDS: Mometasone 200 MCG/Formoterol 5 MCG 120 PUFF INHALER INH SCH ×2 (06:48→20:31)
[2020-05-01] MEDS: Insulin Glargine 9 UNITS in Pre-Filled Syringe 1 EACH SC SCH (08:15)
[2020-05-01] MEDS: Enoxaparin Sodium 40 MG/0.4 ML SYRINGE SC SCH ×2 (08:15→20:32)
[2020-05-01] MEDS: Famotidine 20 MG TAB PO SCH ×2 (08:16→20:32)
[2020-05-01] MEDS: Valsartan 80 MG TAB PO SCH (08:16)
[2020-05-01] MEDS: Calcium Carbonate 600 MG + Vit D TAB PO SCH (08:37)
[2020-05-01] MEDS: Fish Oil 1,000 MG CAP PO SCH (08:38)
[2020-05-01] MEDS: Simvastatin 5 MG TAB PO SCH (20:32)
[2020-05-02] MEDS: Lactated Ringer's 1,000 ML IV SCH ×3 (00:10→14:35)
[2020-05-02] MEDS: methylPREDNISolone Sod Succ 40 MG VIAL IVP SCH ×4 (00:10→19:16)
[2020-05-02] MEDS: Albuterol 200 PUFF (6.7GM INHALER) INH SCH ×4 (01:00→19:30)
--- NOTE | 2020-05-02 05:37 | PDOC.FM ---
- Subjective Subjective: Patient doing well on BiPAP. Tolerates drinking ensure. Desats quickly with BiPAP mask off while drinking, but recovers well. - Objective Vital Signs & Weight: Vital Signs (12 hours) Temp Pulse Ox 05/02/20 04:10 97.2 F L 05/02/20 00:20 97.5 F L 05/01/20 20:50 97.0 F L 05/01/20 20:00 91 L Weight Weight 89.358 kg Most Recent Monitor Data Heart Rate from ECG 75 NIBP 133/76 NIBP BP-Mean 95 Respiration from ECG 25 SpO2 93 I&O: 04/30/20 05/01/20 05/02/20 06:59 06:59 06:59 Intake Total 2180 2840 2771 Output Total 2240 2350 1925 Balance -60 490 846 Result Diagrams: 04/30/20 07:07 04/30/20 07:07 Phys Exam - Physical Examination Constitutional: NAD HEENT: moist MMs, sclera anicteric Neck: supple, full ROM Respiratory: no wheezing, clear to auscultation bilateral Cardiovascular: RRR, no significant murmur Gastrointestinal: soft, no distention Musculoskeletal: no edema Neurological: non-focal, moves all 4 limbs Psychiatric: normal affect Skin: no rash Dx/Plan (1) Acute respiratory failure with hypoxia Code(s): J96.01 - ACUTE RESPIRATORY FAILURE WITH HYPOXIA Status: Acute (2) Pneumonia due to COVID-19 virus Code(s): U07.1 - COVID-19; J12.89 - OTHER VIRAL PNEUMONIA Status: Acute - Plan Plan: #Acute Hypoxic Resp failure 2/2 COVID PNA (+ on 04/22, Day #9 of symptoms) - Patient's steroids increased to 40mg methylprednisolone Q6H 04/25, Albuterol PRN - Received Conv plasma and started remdesivir 04/24. ID consulted. - Pulm consulted. Rec conv plasma, remdesivir, added doxycycline 04/25, and monitoring; next step is intubation if needed, patient continues on BiPAP, tolerating this well at sats usually low-mid 90s - LR @ 130ml/hr for mIVF; patient tolerates Ensure well - BID lovenox - Tessalon pearles for cough #DM - Hold home meds - Hypoglycemia protocol - ACHS glucose checks - Lantus added to regimen 04/27 as blood glucose elevated, likely 2/2 steroids #HTN - Continue home meds #HLD - Continue home meds DVTppx: lovenox BID Diet: HH/CC Diet + Ensure PCP: Melvin Code status: Full Addendum - Attending - Attending Attestation Date/Time: 05/02/20 8365 I personally evaluated the patient and discussed the management with Dr. Lantigua. I agree with the History, Examination, Assessment and Plan documented above with any addition or exceptions noted below.
[2020-05-02] MEDS: HumaLOG 300 UNITS/3 ML VIAL SC PRN ×2 (05:52→14:33)
[2020-05-02] MEDS: Mometasone 200 MCG/Formoterol 5 MCG 120 PUFF INHALER INH SCH ×2 (07:44→19:19)
--- NOTE | 2020-05-02 08:23 | PRG ---
DATE OF SERVICE: 05/02/2020 SUBJECTIVE: The patient remains in COVID-19 isolation. He is on BiPAP. OBJECTIVE: VITAL SIGNS: Temperature 97.2, pulse 76, blood pressure 130/75, O2 saturation 92%. Twenty-four hour intake 4741, output 2300. HEENT: Unremarkable. NECK: No adenopathy or JVD. LUNGS: Crackles bilaterally. CARDIAC: S1, S2. Regular. ABDOMEN: Soft. EXTREMITIES: No edema. LABORATORY DATA: No labs were obtained today. ASSESSMENT: 1. COVID-19 pneumonia. 2. Acute respiratory failure, requiring mechanical ventilation with BiPAP. PLAN: Basically remains steadfast with anticoagulation, steroids, and BiPAP. The patient will be master if he avoids intubation. Job ID: [id number]
[2020-05-02] MEDS ORDERED: Insulin Glargine 12 UNITS in Pre-Filled Syringe 1 EACH SC SCH (09:00)
[2020-05-02] MEDS: Calcium Carbonate 600 MG + Vit D TAB PO SCH (09:56)
[2020-05-02] MEDS: Fish Oil 1,000 MG CAP PO SCH (09:57)
[2020-05-02] MEDS: Enoxaparin Sodium 40 MG/0.4 ML SYRINGE SC SCH ×2 (09:57→21:38)
[2020-05-02] MEDS: Valsartan 80 MG TAB PO SCH (09:57)
[2020-05-02] MEDS: Famotidine 20 MG TAB PO SCH ×2 (09:57→21:37)
[2020-05-02] MEDS: Simvastatin 5 MG TAB PO SCH (21:38)
[2020-05-03] MEDS: methylPREDNISolone Sod Succ 40 MG VIAL IVP SCH ×5 (00:14→23:22)
[2020-05-03] MEDS: Albuterol 200 PUFF (6.7GM INHALER) INH SCH ×4 (01:05→17:34)
[2020-05-03 04:20] LABS: ALT (SGPT) 22 U/L (8-55); AST (SGOT) 36 U/L (5-34); Albumin 2.3 g/dL (3.4-4.8); Alkaline Phosphatase 122 U/L (40-110); Anion Gap 14 mmol/L (10-20); BUN (Urea Nitrogen) 15 mg/dL (8.4-25.7); Bilirubin, Total 0.7 mg/dL (0.2-1.2); CRP (Inflammatory) 2.61 mg/dL (= or < 0.5); Calc. Creatinine Clearance 130 mL/min (70-130); Calcium 8.1 mg/dL (7.8-10.44); Carbon Dioxide 28 mmol/L (23-31); Chloride 100 mmol/L (98-107); Globulin 2.8 g/dL (2.4-3.5); Glucose 203 mg/dL (83-110); Potassium 4.6 mmol/L (3.5-5.1); Protein, Total 5.1 g/dL (5.8-8.1); Sodium 137 mmol/L (136-145)
[2020-05-03] MEDS: HumaLOG 300 UNITS/3 ML VIAL SC PRN ×3 (05:13→17:34)
[2020-05-03 05:23] LABS: #Lymphocytes 0.1 thou/uL (1.20-3.40); #Monocytes 0.2 thou/uL (0.11-0.59); #Neutrophils 8.5 thou/uL (1.40-6.50); %Basophils 0.1 % (0.0-1.0); %Eosinophils 0.2 % (0.0-10.0); %Lymphocytes 1.3 % (21.0-51.0); %Monocytes 1.9 % (0.0-10.0); %Neutrophils 96.6 % (42.0-75.0); Hemoglobin 13.1 g/dL (14.0-18.0); Mean Corpuscular HGB CONC 33.9 g/dL (32.0-36.0); Mean Corpuscular Hemoglobin 31.9 pg (27.0-31.0); Mean Corpuscular Volume 93.9 fL (78.0-98.0); Mean Platelet Volume 8.3 fL (7.4-10.4); Platelet Count 115 thou/uL (130-400); Platelet Morphology Comment Appears Decreased; RBC Distribution Width 12.3 % (11.5-14.5); Red Blood Cell (RBC) Count 4.11 mill/uL (4.70-6.10); White Blood Cell (WBC) Count 8.8 thou/uL (4.8-10.8)
--- NOTE | 2020-05-03 05:39 | PDOC.FM ---
- Subjective Subjective: Patient required increasing FiO2 via BiPAP overnight. Resting in bed during evaluation. - Objective Vital Signs & Weight: Vital Signs (12 hours) Temp Pulse Pulse Ox 05/03/20 04:00 97.8 F 05/03/20 03:07 72 05/03/20 00:00 98.2 F 05/02/20 20:00 97.8 F 05/02/20 19:30 94 L 05/02/20 18:57 90 Weight Weight 89.358 kg Most Recent Monitor Data Heart Rate from ECG 81 NIBP 151/87 NIBP BP-Mean 108 Respiration from ECG 25 SpO2 96 I&O: 05/01/20 05/02/20 05/03/20 06:59 06:59 06:59 Intake Total 2840 4741 4510 Output Total 2350 2300 2900 Balance 490 2441 1610 Result Diagrams: 05/03/20 03:34 05/03/20 03:34 Phys Exam - Physical Examination mild respiratory distress HEENT: sclera anicteric Neck: full ROM decreased breath sounds throughout, crackles RUL Cardiovascular: RRR Gastrointestinal: soft, no distention Musculoskeletal: no edema Neurological: non-focal, moves all 4 limbs Psychiatric: normal affect Skin: no rash Dx/Plan (1) Acute respiratory failure with hypoxia Code(s): J96.01 - ACUTE RESPIRATORY FAILURE WITH HYPOXIA Status: Acute (2) Pneumonia due to COVID-19 virus Code(s): U07.1 - COVID-19; J12.89 - OTHER VIRAL PNEUMONIA Status: Acute - Plan Plan: #Acute Hypoxic Resp failure 2/2 COVID PNA (+ on 04/22, Day #9 of symptoms) - Patient's steroids increased to 40mg methylprednisolone Q6H 04/25, Albuterol PRN - Received Conv plasma and started remdesivir 04/24. ID consulted. - Pulm consulted. Rec conv plasma, remdesivir, added doxycycline 04/25, and monitoring; next step is intubation if needed, patient continues on BiPAP, FiO2 increased from 80>100% overnight while patient asleep and patient satting 96% while awake on 100% FiO2 via BiPAP during evaluation. - LR @ 130ml/hr for mIVF; patient tolerates Ensure well - Dietary consulted to assist with nutritional needs - BID lovenox - Tessalon pearles for cough #DM - Hold home meds - Hypoglycemia protocol - [facility] glucose checks - Lantus added to regimen 04/27 as blood glucose elevated, likely 2/2 steroids #HTN - Continue home meds #HLD - Continue home meds DVTppx: lovenox BID Diet: HH/CC Diet + Ensure PCP: Melvin Code status: Full Addendum - Attending - Attending Attestation Date/Time: 05/03/20 1120 I personally evaluated the patient and discussed the management with Dr. Lantigua. I agree with the History, Examination, Assessment and Plan documented above with any addition or exceptions noted below. Continue COVID care, monitoring resp status closely as anticipate he will be headed towards intubation in the near future. Pulm on board.
[2020-05-03] MEDS ORDERED: Insulin Glargine 14 UNITS in Pre-Filled Syringe 1 EACH SC SCH (09:00)
[2020-05-03] MEDS ORDERED: Furosemide 20 MG/2 ML VIAL SLOW IVP SCH (09:30)
[2020-05-03] MEDS: Lactated Ringer's 1,000 ML IV SCH ×3 (09:35→14:07)
[2020-05-03] MEDS: Calcium Carbonate 600 MG + Vit D TAB PO SCH (09:36)
[2020-05-03] MEDS: Enoxaparin Sodium 40 MG/0.4 ML SYRINGE SC SCH ×2 (09:36→20:10)
[2020-05-03] MEDS: Famotidine 20 MG TAB PO SCH ×2 (09:37→20:11)
[2020-05-03] MEDS: Valsartan 80 MG TAB PO SCH (09:37)
[2020-05-03] MEDS: Fish Oil 1,000 MG CAP PO SCH (09:37)
[2020-05-03] MEDS: Mometasone 200 MCG/Formoterol 5 MCG 120 PUFF INHALER INH SCH ×2 (09:43→17:33)
--- NOTE | 2020-05-03 09:48 | RAD ---
XR Chest 1 View Portable History: Covid pneumonia. Worsening respiratory status Comparison: Radiograph April 30, 2020 Findings: Extensive airspace opacities are similar. Small effusions. No pneumothorax. Cardiac silhoue tte is enlarged. Dense calcifications transverse aorta. Impression: Similar examination of the chest without significant improvement of lung aeration.
[2020-05-03] MEDS: Simvastatin 5 MG TAB PO SCH (20:11)
[2020-05-04] MEDS: Albuterol 200 PUFF (6.7GM INHALER) INH SCH ×4 (00:04→18:10)
[2020-05-04] MEDS: Lactated Ringer's 1,000 ML IV SCH ×4 (00:13→18:11)
--- NOTE | 2020-05-04 05:31 | PDOC.FM ---
- Subjective Subjective: Patient resting comfortably in bed with BiPAP in place, denies dyspnea. Discussed plans for continued respiratory support, patient agreeable with plan of care. - Objective Vital Signs & Weight: Vital Signs (12 hours) Temp Pulse Pulse Ox 05/04/20 03:04 77 05/04/20 00:00 97 F L 05/03/20 22:46 81 05/03/20 21:10 97.3 F L 05/03/20 20:00 95 05/03/20 19:28 97.2 F L 05/03/20 19:15 83 Weight Admit Weight 89.358 kg Weight 90.265 kg Most Recent Monitor Data Heart Rate from ECG 72 NIBP 157/84 NIBP BP-Mean 108 Respiration from ECG 19 SpO2 95 I&O: 05/02/20 05/03/20 05/04/20 06:59 06:59 06:59 Intake Total 4741 4510 2500 Output Total 2300 2900 1925 Balance 2441 1610 575 Result Diagrams: 05/03/20 03:34 05/03/20 03:34 Phys Exam - Physical Examination Constitutional: NAD HEENT: moist MMs, sclera anicteric Neck: supple, full ROM decreased breath sounds throughout Cardiovascular: RRR, no significant murmur Gastrointestinal: soft, no distention Musculoskeletal: no edema Neurological: non-focal, moves all 4 limbs Psychiatric: normal affect Skin: no rash Dx/Plan (1) Acute respiratory failure with hypoxia Code(s): J96.01 - ACUTE RESPIRATORY FAILURE WITH HYPOXIA Status: Acute (2) Pneumonia due to COVID-19 virus Code(s): U07.1 - COVID-19; J12.89 - OTHER VIRAL PNEUMONIA Status: Acute - Plan Plan: #Acute Hypoxic Resp failure /2 COVID PNA (+ on 04/22, Day #9 of symptoms) - Patient's steroids increased to 40mg methylprednisolone Q6H 04/25, Albuterol PRN - Received Conv plasma and started remdesivir 04/24. ID consulted. - Pulm consulted. Rec conv plasma, remdesivir, added doxycycline 04/25, and monitoring; next step is intubation if needed, patient continues on BiPAP, FiO2 increased from 80>100% 05/03; patient satting low-mid 90s overnight, 98% at times during evaluation this morning, patient states he feels better - LR @ 130ml/hr for mIVF; patient tolerates Ensure well - S/P 1 dose of 20mg IV lasix 05/03 to possibly help with airation - Dietary consulted to assist with nutritional needs - BID lovenox - Tessalon pearles for cough - Daily discussions with family; family understands intubation is a possibility and have repeatedly expressed their wishes for patient to be intubated if necessary #DM - Hold home meds - Hypoglycemia protocol - ACHS glucose checks - Lantus added to regimen 04/27 as blood glucose elevated, likely 2/2 steroids #HTN - Continue home meds #HLD - Continue home meds DVTppx: lovenox BID Diet: HH/CC Diet + Ensure PCP: Melvin Code status: Full Addendum - Attending - Attending Attestation Date/Time: 05/04/20 1101 I personally evaluated the patient and discussed the management with Dr. Lantigua. I agree with the History, Examination, Assessment and Plan documented above with any addition or exceptions noted below.
[2020-05-04] MEDS: methylPREDNISolone Sod Succ 40 MG VIAL IVP SCH ×3 (06:22→18:10)
[2020-05-04] MEDS: HumaLOG 300 UNITS/3 ML VIAL SC PRN (06:41)
[2020-05-04] MEDS: Mometasone 200 MCG/Formoterol 5 MCG 120 PUFF INHALER INH SCH ×2 (08:42→18:10)
[2020-05-04] MEDS: Fish Oil 1,000 MG CAP PO SCH (08:43)
[2020-05-04] MEDS: Enoxaparin Sodium 40 MG/0.4 ML SYRINGE SC SCH ×2 (08:43→20:39)
[2020-05-04] MEDS: Valsartan 80 MG TAB PO SCH (08:43)
[2020-05-04] MEDS: Calcium Carbonate 600 MG + Vit D TAB PO SCH (08:43)
[2020-05-04] MEDS: Famotidine 20 MG TAB PO SCH ×2 (08:44→20:39)
[2020-05-04] MEDS ORDERED: Insulin Glargine 16 UNITS in Pre-Filled Syringe 1 EACH SC SCH (09:00)
[2020-05-04] MEDS ORDERED: Furosemide 20 MG/2 ML VIAL SLOW IVP SCH (09:30)
[2020-05-04] MEDS: Simvastatin 5 MG TAB PO SCH (20:39)
[2020-05-05] MEDS: Albuterol 200 PUFF (6.7GM INHALER) INH SCH ×4 (01:20→19:04)
[2020-05-05] MEDS: methylPREDNISolone Sod Succ 40 MG VIAL IVP SCH ×3 (01:20→21:51)
[2020-05-05] MEDS: Mometasone 200 MCG/Formoterol 5 MCG 120 PUFF INHALER INH SCH ×2 (05:26→19:04)
--- NOTE | 2020-05-05 05:36 | PDOC.FM ---
- Subjective Subjective: Patient resting comfortable, 99% on bipap FiO2 100%. - Objective Vital Signs & Weight: Vital Signs (12 hours) Temp Pulse Pulse Ox 05/05/20 02:09 90 05/05/20 00:00 97 F L 05/04/20 22:03 76 05/04/20 20:40 98 F 05/04/20 20:00 95 05/04/20 18:54 95 Weight Admit Weight 89.358 kg Weight 90.265 kg Most Recent Monitor Data Heart Rate from ECG 88 NIBP 129/92 NIBP BP-Mean 104 Respiration from ECG 19 SpO2 95 I&O: 05/03/20 05/04/20 05/05/20 06:59 06:59 06:59 Intake Total 4510 2500 2040 Output Total 2900 5 2024 Balance 1610 575 15 Result Diagrams: 05/03/20 03:34 05/03/20 03:34 Phys Exam - Physical Examination Constitutional: NAD HEENT: moist MMs, sclera anicteric Neck: supple, full ROM Respiratory: no wheezing, clear to auscultation bilateral Cardiovascular: RRR, no significant murmur Gastrointestinal: soft, no distention Musculoskeletal: no edema Neurological: non-focal, moves all 4 limbs Psychiatric: normal affect Skin: no rash Dx/Plan (1) Acute respiratory failure with hypoxia Code(s): J96.01 - ACUTE RESPIRATORY FAILURE WITH HYPOXIA Status: Acute (2) Pneumonia due to COVID-19 virus Code(s): U07.1 - COVID-19; J12.89 - OTHER VIRAL PNEUMONIA Status: Acute - Plan Plan: #Acute Hypoxic Resp failure 2/2 COVID PNA (+ on 04/22, Day #9 of symptoms) - Patient's steroids increased to 40mg methylprednisolone Q6H 04/25, Albuterol PRN - Received Conv plasma and started remdesivir 04/24. ID consulted. - Pulm consulted. Rec conv plasma, remdesivir, added doxycycline 04/25, and monitoring; next step is intubation if needed, patient continues on BiPAP, FiO2 increased from 80>100% 05/03; patient satting low-mid 90s overnight, 98% at times during evaluation this morning, will try to decrease FiO2 today - LR @ 100ml/hr for mIVF; patient tolerates Ensure well - S/P 1 dose of 20mg IV lasix 05/03 to possibly help with airation - Dietary consulted to assist with nutritional needs - BID lovenox - Tessalon pearles for cough - Daily discussions with family; family understands intubation is a possibility and have repeatedly expressed their wishes for patient to be intubated if necessary #DM - Hold home meds - Hypoglycemia protocol - ACHS glucose checks - Lantus added to regimen 04/27 as blood glucose elevated, likely 2/2 steroids #HTN - Continue home meds #HLD - Continue home meds DVTppx: lovenox BID Diet: HH/CC Diet + Ensure PCP: Melvin Code status: Full Addendum - Attending - Attending Attestation Date/Time: 05/05/20 1130 I personally evaluated the patient and discussed the management with Dr. Lantigua. I agree with the History, Examination, Assessment and Plan documented above with any addition or exceptions noted below. Continue COVID care. Wean steroids some as he has been on high dose for 10 days. Pulm on board.
[2020-05-05] MEDS: HumaLOG 300 UNITS/3 ML VIAL SC PRN (05:45)
[2020-05-05] MEDS: Lactated Ringer's 1,000 ML IV SCH ×2 (07:19→17:10)
[2020-05-05] MEDS: Calcium Carbonate 600 MG + Vit D TAB PO SCH (07:46)
[2020-05-05] MEDS: Fish Oil 1,000 MG CAP PO SCH (07:46)
[2020-05-05] MEDS: Enoxaparin Sodium 40 MG/0.4 ML SYRINGE SC SCH ×2 (07:46→21:50)
[2020-05-05] MEDS: Valsartan 80 MG TAB PO SCH (07:46)
[2020-05-05] MEDS: Famotidine 20 MG TAB PO SCH ×2 (07:46→22:49)
[2020-05-05] MEDS: Insulin Glargine 17 UNITS in Pre-Filled Syringe 1 EACH SC SCH (07:47)
[2020-05-05 12:28] LABS: Hemoglobin 16.3 g/dL (14.0-18.0); Mean Corpuscular HGB CONC 32.8 g/dL (32.0-36.0); Mean Corpuscular Hemoglobin 30.9 pg (27.0-31.0); Mean Corpuscular Volume 94.1 fL (78.0-98.0); Mean Platelet Volume 8.5 fL (7.4-10.4); Platelet Count 141 thou/uL (130-400); RBC Distribution Width 12.6 % (11.5-14.5); Red Blood Cell (RBC) Count 5.29 mill/uL (4.70-6.10); White Blood Cell (WBC) Count 21.5 thou/uL (4.8-10.8)
[2020-05-05] MEDS ORDERED: Ventilator Sedation Protocol 1 EACH FS SCH (12:30)
[2020-05-05 12:42] LABS: Anion Gap 17 mmol/L (10-20); BUN (Urea Nitrogen) 19 mg/dL (8.4-25.7); CRP (Inflammatory) 2.49 mg/dL (= or < 0.5); Calc. Creatinine Clearance 122 mL/min (70-130); Calcium 8.8 mg/dL (7.8-10.44); Carbon Dioxide 27 mmol/L (23-31); Chloride 97 mmol/L (98-107); Glucose 119 mg/dL (83-110); Sodium 136 mmol/L (136-145)
[2020-05-05] MEDS ORDERED: Propofol BOLUS 1,000 MG/100 ML VIAL IV PRN (12:45)
[2020-05-05] MEDS ORDERED: DISCONTINUE PREVIOUS NARCOTIC PAIN MEDICATIONS AND BENZODIAZEPINES FS SCH (12:45)
[2020-05-05] MEDS ORDERED: Morphine 2 MG/ML VIAL SLOW IVP PRN (12:45)
[2020-05-05] MEDS ORDERED: Fentanyl BOLUS 250 ML IVPB PRN (12:45)
[2020-05-05] MEDS: Propofol 1,000 MG/100 ML VIAL IV PRN ×3 (12:54→21:50)
[2020-05-05 13:07] LABS: Actual Bicarbonate (HCO3a) 28.4 mEq/L (22-28); Analyzer IN Cardio OR; Base Excess (BEa) 2.4 mEq/L (-2.0 to +3.0); CO2 Tension 48.8 mmHg (35.0-45.0); Calcium, Ionized (arterial) 1.16 mmol/L (1.12-1.30); Carboxyhemoglobin (COHb) 1.8 gm% (0.0-3.0); Hemoglobin (Hb) 15.5 g/dL (14.0-18.0); Potassium - ABG Lab 3.82 mmol/L (3.70-5.30); pH, Arterial 7.38 (7.35-7.45)
[2020-05-05] MEDS: Lorazepam 2 MG/ML VIAL SLOW IVP PRN ×2 (13:09→14:17)
--- NOTE | 2020-05-05 13:11 | RAD ---
XR Chest 1 View Portable History: Intubation Comparison: Radiograph May 03, 2020 Findings: Endotracheal tube tip at the clavicular level. Extensive airspace opacities throughout the lungs. Small effusions. Heart size is enlarged. No acute osseous abnormality. Impression: Satisfactory location of the endotracheal tube with tip at the clavicular level.
[2020-05-05 13:12] LABS: Band 5 % (5-11); Lymphocytes 2 % (21-51); MDiff Complete? YES; Monocytes 1 % (0-10); Neutrophil 92 % (42-75); Platelet Morphology Comment Appears Adequate; RBC Morphology Normal
[2020-05-05 13:13] LABS: O2 Tension (PaO2), arterial 55.1 mmHg (> 70.0); Puncture Site RRA
[2020-05-05] MEDS ORDERED: Vecuronium 10 MG VIAL ONE ×2 (13:22→13:59)
[2020-05-05] MEDS ORDERED: Vecuronium 10 MG VIAL IV SCH (13:30)
[2020-05-05] MEDS: fentaNYL Citrate/PF 2,000 MCG in Sodium Chloride 0.9% 60 ML IV SCH (14:01)
[2020-05-05] MEDS: Vecuronium 10 MG VIAL IV PRN ×3 (16:40→21:59)
[2020-05-05] MEDS ORDERED: Sodium Chloride 0.9% 1,000 ML IV SCH (18:45)
[2020-05-05] MEDS: Acetaminophen 650 MG Suppository PR PRN (20:00)
--- NOTE | 2020-05-05 20:16 | PRG ---
DATE OF SERVICE: 05/05/2020 SUBJECTIVE: Mr. Aguilar apparently started feeling fatigued today. Recommended intubation. He is now intubated and sedated. OBJECTIVE: LUNGS: Clear. HEART: Regular rhythm. ABDOMEN: Soft. EXTREMITIES: Without edema. LABORATORY DATA: White count 21, hemoglobin 16, and platelets 141. Sodium 136, potassium 5, chloride 97, bicarb 27, BUN 19, and creatinine 0.6. PH 7.38, CO2 of 48, and PO2 of 55. IMPRESSION: COVID-19 pneumonia, respiratory failure. He has diffuse infiltrates on his chest x-ray. Continue supportive care in the critical care unit. He is 12 days into his hospitalization. He had fever and chills days prior to his admission on 04/21. If one is to say that his illness started on 04/17, then he is really almost 20 days into this. In theory, isolation can be discontinued in the next 24 to 48 hours. He will remain mechanically ventilated. We will see some clinical improvement. We will minimize his oxygen with a goal . Critical care time 30 min. Job ID: [id number] [facility]ENTERLuisa
[2020-05-05] MEDS: Simvastatin 5 MG TAB PO SCH (22:49)
[2020-05-06] MEDS: Acetaminophen 650 MG Suppository PR PRN (00:23)
[2020-05-06] MEDS: Albuterol 200 PUFF (6.7GM INHALER) INH SCH ×4 (00:25→19:22)
[2020-05-06] MEDS ORDERED: Norepinephrine 8 MG/0.9% NS 250 ML IVPB SCH (01:00)
[2020-05-06] MEDS: Vecuronium 10 MG VIAL IV PRN ×3 (02:30→14:33)
[2020-05-06] MEDS: HumaLOG 300 UNITS/3 ML VIAL SC PRN ×3 (04:21→16:32)
--- NOTE | 2020-05-06 05:45 | PDOC.FM ---
- Subjective Subjective: Patient intubated yesterday, proned overnight. - Objective Vital Signs & Weight: Vital Signs (12 hours) Temp Pulse Resp Pulse Ox 05/06/20 04:00 99.8 F H 30 H 05/06/20 03:00 100 F H 05/06/20 02:00 99.9 F H 30 H 05/06/20 01:00 100.5 F H 05/06/20 00:00 101 F H 30 H 05/05/20 22:00 101.3 F H 30 H 05/05/20 20:00 102.3 F H 130 H 30 H 100 Weight Admit Weight 89.358 kg Weight 90.265 kg Most Recent Monitor Data Heart Rate from ECG 75 NIBP 127/65 NIBP BP-Mean 85 Respiration from ECG 30 SpO2 100 I&O: 05/04/20 05/05/20 05/06/20 06:59 06:59 06:59 Intake Total 2500 2100 766 Output Total 1925 2450 535 Balance 575 -350 231 Result Diagrams: 05/06/20 07:56 05/06/20 07:56 Phys Exam - Physical Examination intubated and sedated Neck: supple, full ROM Respiratory: clear to auscultation bilateral Cardiovascular: RRR, no significant murmur Musculoskeletal: no edema proned sedated Skin: no rash Dx/Plan (1) Acute respiratory failure with hypoxia Code(s): J96.01 - ACUTE RESPIRATORY FAILURE WITH HYPOXIA Status: Acute (2) Pneumonia due to COVID-19 virus Code(s): U07.1 - COVID-19; J12.89 - OTHER VIRAL PNEUMONIA Status: Acute - Plan Plan: #Acute Hypoxic Resp failure 2/2 COVID PNA (+ on 04/22) - Patient's steroids increased to 40mg methylprednisolone Q6H 04/25, decreased to BID 05/05, Albuterol PRN - Received Conv plasma and started remdesivir 04/24. ID consulted. - Pulm consulted. Rec conv plasma, remdesivir, added doxycycline 04/25, and monitoring; - Patient intubated 05/05 due to respiratory fatigue; tolerated the procedure well -fentanyl @ 5, propofol @ 10.2 for sedation -norepi @ 4.7 for pressure support -satting 100% on Bi-level, FiO2 70% - Will consider Ng tube and starting tube feeds today - Dietary consulted to assist with nutritional needs - BID lovenox - IV protonix for stress ulcer prevention - Daily discussions with family; family updated before and after intubation yesterday, agreeable with the plan of care #DM - Hold home meds - Hypoglycemia protocol - ACHS glucose checks - Lantus added to regimen 04/27 as blood glucose elevated, likely 2/2 steroids #HTN - Continue home meds #HLD - Continue home meds DVTppx: lovenox BID Diet: HH/CC Diet + Ensure PCP: Melvin Code status: Full Addendum - Attending - Attending Attestation Date/Time: 05/06/20 1233 I personally evaluated the patient and discussed the management with Dr. Lantigua. I agree with the History, Examination, Assessment and Plan documented above with any addition or exceptions noted below. Patient here for COVID. Now intubated. Continue Pulm mgmt and supportive care.
[2020-05-06] MEDS: Propofol 1,000 MG/100 ML VIAL IV PRN ×3 (07:52→23:57)
[2020-05-06] MEDS: Mometasone 200 MCG/Formoterol 5 MCG 120 PUFF INHALER INH SCH ×2 (08:06→19:22)
[2020-05-06 08:23] LABS: Actual Bicarbonate (HCO3a) 25.3 mEq/L (22-28); Analyzer IN Cardio OR; Base Excess (BEa) 2.8 mEq/L (-2.0 to +3.0); CO2 Tension 32.4 mmHg (35.0-45.0); Carboxyhemoglobin (COHb) 2.2 gm% (0.0-3.0); Hemoglobin (Hb) 13.1 g/dL (14.0-18.0); O2 Tension (PaO2), arterial 139.6 mmHg (> 70.0); Potassium - ABG Lab 4.37 mmol/L (3.70-5.30); pH, Arterial 7.51 (7.35-7.45)
[2020-05-06 08:24] LABS: Puncture Site LRA
[2020-05-06 08:33] LABS: #Eosinphils 0.1 thou/uL (0.0-0.7); #Lymphocytes 0.6 thou/uL (1.20-3.40); #Monocytes 0.2 thou/uL (0.11-0.59); #Neutrophils 16.5 thou/uL (1.40-6.50); %Eosinophils 0.3 % (0.0-10.0); %Lymphocytes 3.2 % (21.0-51.0); %Monocytes 1.1 % (0.0-10.0); %Neutrophils 95.4 % (42.0-75.0); Hemoglobin 12.8 g/dL (14.0-18.0); Mean Corpuscular HGB CONC 33.7 g/dL (32.0-36.0); Mean Corpuscular Hemoglobin 31.5 pg (27.0-31.0); Mean Corpuscular Volume 93.4 fL (78.0-98.0); Mean Platelet Volume 8.4 fL (7.4-10.4); Platelet Count 126 thou/uL (130-400); RBC Distribution Width 12.9 % (11.5-14.5); Red Blood Cell (RBC) Count 4.08 mill/uL (4.70-6.10); White Blood Cell (WBC) Count 17.3 thou/uL (4.8-10.8)
--- NOTE | 2020-05-06 08:39 | RAD ---
PORTABLE CHEST: HISTORY: COVID pneumonia. FINDINGS: Heart size is within normal limits. An endotracheal tube is satisfactory position. Diffuse ground-g lass infiltrative lung changes are similar to the prior study. IMPRESSION: Stable exam. POS: PAULINO
[2020-05-06 08:42] LABS: ALT (SGPT) 18 U/L (8-55); AST (SGOT) 26 U/L (5-34); Albumin 2.2 g/dL (3.4-4.8); Alkaline Phosphatase 73 U/L (40-110); Anion Gap 14 mmol/L (10-20); BUN (Urea Nitrogen) 30 mg/dL (8.4-25.7); Bilirubin, Total 1.2 mg/dL (0.2-1.2); CRP (Inflammatory) 17.59 mg/dL (= or < 0.5); Calc. Creatinine Clearance 109 mL/min (70-130); Calcium 7.7 mg/dL (7.8-10.44); Carbon Dioxide 26 mmol/L (23-31); Chloride 100 mmol/L (98-107); Globulin 2.5 g/dL (2.4-3.5); Glucose 227 mg/dL (83-110); Potassium 4.7 mmol/L (3.5-5.1); Protein, Total 4.7 g/dL (5.8-8.1); Sodium 135 mmol/L (136-145)
[2020-05-06 08:59] LABS: MDiff Complete? YES; Platelet Morphology Comment Appears Decreased; Polychromasia SLIGHT = 2-3 cells (100X) (0-2/hpf)
[2020-05-06] MEDS: Valsartan 80 MG TAB PO SCH (09:09)
[2020-05-06] MEDS: Fish Oil 1,000 MG CAP PO SCH (09:09)
[2020-05-06] MEDS: Calcium Carbonate 600 MG + Vit D TAB PO SCH (09:09)
[2020-05-06] MEDS: Enoxaparin Sodium 60 MG/0.6 ML SYRINGE SC SCH ×2 (09:11→20:36)
[2020-05-06] MEDS: Sodium Chloride 0.9% (PF) 10 ML VIAL FS PRN (09:12)
[2020-05-06] MEDS: Insulin Glargine 17 UNITS in Pre-Filled Syringe 1 EACH SC SCH (09:13)
[2020-05-06] MEDS: methylPREDNISolone Sod Succ 40 MG VIAL IVP SCH ×2 (09:13→20:36)
[2020-05-06] MEDS: fentaNYL Citrate/PF 2,000 MCG in Sodium Chloride 0.9% 60 ML IV SCH ×2 (09:14→23:25)
[2020-05-06] MEDS: Pantoprazole 40 MG VIAL IVP SCH (09:16)
[2020-05-06] MEDS: Lorazepam 2 MG/ML VIAL SLOW IVP PRN ×2 (09:53→14:33)
[2020-05-06] MEDS: Albumin 25% 25 GM/100 ML BOT IVPB SCH ×3 (10:30→21:47)
[2020-05-06] MEDS: Vancomycin HCl 1.25 GM in Sodium Chloride 0.9% 250 ML 250 ML IVPB SCH ×2 (11:04→22:22)
[2020-05-06] MEDS ORDERED: Albumin 25% 25 GM/100 ML BOT IVPB SCH (12:00)
[2020-05-06] MEDS: Cefepime 2 GM in Sodium Chloride 0.9% 100 ML IVPB SCH ×2 (12:42→21:00)
--- NOTE | 2020-05-06 14:44 | PRG ---
DATE OF SERVICE: 05/06/2020 OBJECTIVE: VITAL SIGNS: Respiratory rate 30, FiO2 is down to 60%, blood pressure 104/66. Intake and output is positive 513. LUNGS: Remarkable for coarse equal breath sounds. HEART: Regular rhythm. ABDOMEN: Soft. LABORATORY DATA: Chest x-ray is unchanged. White count 17.3, hemoglobin 12.8, platelets 126. Electrolytes are unremarkable. BUN 30, creatinine 0.7. PH 7.51, CO2 of 32, pO2 139. IMPRESSION: Respiratory failure associated with COVID pneumonia. Continue ventilatory support. Need to start nutritional support probably this weekend. This is 13th stay in the hospital. He had a week of symptoms prior to admission, so he is probably getting close to a point where his isolation can be discontinued. Job ID: [id number]
[2020-05-06 15:11] LABS: Bilirubin Negative (Negative); Blood, Urine Trace (Negative); Clarity Clear (Clear); Glucose, Urine (Dipstick) 70 mg/dL (Negative); Ketone, Urine 20 mg/dL (Negative); Leukocyte 250 Leu/uL (Negative); Nitrite Negative (Negative); Protein, Urine (Dipstick) 30 mg/dL (Neg-Trace); RBC/HPF 0-3 HPF (0-3); Specific Gravity, Urine 1.027 (1.002-1.036); Squamous Epithelial None Seen HPF (0-3); Urobilinogen Normal mg/dL (Less than 2); Yeast-Budding 1+ HPF (None Seen)
[2020-05-06 15:21] LABS: Bacteria/HPF 1+ HPF (None Seen)
[2020-05-06] MEDS: Simvastatin 5 MG TAB PO SCH (20:37)
[2020-05-07] MEDS: Albuterol 200 PUFF (6.7GM INHALER) INH SCH ×4 (02:29→18:46)
[2020-05-07 03:57] LABS: Anion Gap 15 mmol/L (10-20); BUN (Urea Nitrogen) 21 mg/dL (8.4-25.7); Calc. Creatinine Clearance 115 mL/min (70-130); Calcium 7.8 mg/dL (7.8-10.44); Carbon Dioxide 26 mmol/L (23-31); Chloride 102 mmol/L (98-107); Glucose 232 mg/dL (83-110); Potassium 4.5 mmol/L (3.5-5.1); Sodium 138 mmol/L (136-145)
[2020-05-07] MEDS: Propofol 1,000 MG/100 ML VIAL IV PRN ×3 (04:05→18:50)
[2020-05-07] MEDS: Albumin 25% 25 GM/100 ML BOT IVPB SCH ×2 (04:05→09:13)
[2020-05-07 04:52] LABS: Band 19 % (5-11); Hemoglobin 11.2 g/dL (14.0-18.0); Lymphocytes 2 % (21-51); MDiff Complete? YES; Mean Corpuscular HGB CONC 33.4 g/dL (32.0-36.0); Mean Corpuscular Hemoglobin 31.9 pg (27.0-31.0); Mean Corpuscular Volume 95.7 fL (78.0-98.0); Mean Platelet Volume 9.1 fL (7.4-10.4); Monocytes 1 % (0-10); Neutrophil 78 % (42-75); Platelet Count 76 thou/uL (130-400); Platelet Morphology Comment Appears Decreased; RBC Distribution Width 12.8 % (11.5-14.5); White Blood Cell (WBC) Count 11.8 thou/uL (4.8-10.8)
[2020-05-07] MEDS: Cefepime 2 GM in Sodium Chloride 0.9% 100 ML IVPB SCH ×3 (05:00→20:54)
[2020-05-07] MEDS: HumaLOG 300 UNITS/3 ML VIAL SC PRN ×3 (05:25→21:20)
--- NOTE | 2020-05-07 05:39 | PDOC.FM ---
- Subjective Subjective: Did well overnight per nursing. Reportedly desats easily with movement/adjusting. - Objective Vital Signs & Weight: Vital Signs (12 hours) Temp Pulse Resp Pulse Ox 05/07/20 04:00 30 H 05/07/20 02:25 88 05/07/20 02:00 30 H 05/07/20 00:00 30 H 05/06/20 23:00 97.8 F 05/06/20 22:45 77 05/06/20 22:00 97.5 F L 30 H 05/06/20 20:00 30 H 05/06/20 19:43 100 05/06/20 19:15 72 05/06/20 19:00 97.3 F L 05/06/20 18:00 30 H Weight Admit Weight 89.358 kg Weight 84 kg Most Recent Monitor Data Heart Rate from ECG 78 NIBP 115/67 NIBP BP-Mean 83 Respiration from ECG 30 SpO2 97 I&O: 05/05/20 05/06/20 05/07/20 06:59 06:59 06:59 Intake Total 2100 1088 2026 Output Total 2450 575 1762 Balance -350 513 264 Result Diagrams: 05/07/20 03:21 05/07/20 03:21 Phys Exam - Physical Examination intubated and sedated Neck: supple, full ROM Respiratory: clear to auscultation bilateral Cardiovascular: RRR, no significant murmur Gastrointestinal: soft, no distention Musculoskeletal: no edema supine sedated Skin: no rash Dx/Plan (1) Acute respiratory failure with hypoxia Code(s): J96.01 - ACUTE RESPIRATORY FAILURE WITH HYPOXIA Status: Acute (2) Pneumonia due to COVID-19 virus Code(s): U07.1 - COVID-19; J12.89 - OTHER VIRAL PNEUMONIA Status: Acute - Plan Plan: #Acute Hypoxic Resp failure / COVID PNA (+ on 04/22) - Patient's steroids increased to 40mg methylprednisolone Q6H 04/25, decreased to BID 05/05, Albuterol PRN - Received Conv plasma and started remdesivir 04/24. ID consulted. - Pulm consulted. Rec conv plasma, remdesivir, added doxycycline 04/25, and monitoring; - Patient intubated 05/05 due to respiratory fatigue; tolerated the procedure well -fentanyl @ 7.5, propofol @ 12.8 for sedation -norepi @ 1.9 for pressure support -satting 96% on Bi-level, FiO2 60% - Will consider starting tube feeds today - Dietary consulted to assist with nutritional needs - BID lovenox - IV protonix for stress ulcer prevention - Daily discussions with family; family updated before and after intubation 05/05, agreeable with the plan of care #UTI -urine 05/06 demonstrated 250LE, 1+ bacteria -patient's WBC increased over the course of the last several days; procal increased -patient started on vancomycin and cefepime 05/06 for concern for hospital acquired pna #Concern for hospital acquired pna -procal increased, wbc increased, patient required intubation -started on vancomycin and cefepime 05/06 #DM - Hold home meds - Hypoglycemia protocol - ACHS glucose checks - Lantus added to regimen 04/27 as blood glucose elevated, likely 2/2 steroids #HTN - Continue home meds #HLD - Continue home meds DVTppx: lovenox BID Diet: HH/CC Diet + Ensure PCP: Melvin Code status: Full Addendum - Attending - Attending Attestation Date/Time: 05/07/20 1208 I personally evaluated the patient and discussed the management with Dr. Lantigua I agree with the History, Examination, Assessment and Plan documented above with any addition or exceptions noted below. Continue trend platelets continue lovenox for now feeding started today.
[2020-05-07] MEDS: Mometasone 200 MCG/Formoterol 5 MCG 120 PUFF INHALER INH SCH ×2 (07:53→18:47)
[2020-05-07] MEDS: Calcium Carbonate 600 MG + Vit D TAB PO SCH (08:12)
[2020-05-07] MEDS: methylPREDNISolone Sod Succ 40 MG VIAL IVP SCH ×2 (08:12→20:49)
[2020-05-07] MEDS: Pantoprazole 40 MG VIAL IVP SCH (08:12)
[2020-05-07] MEDS: Fish Oil 1,000 MG CAP PO SCH (08:12)
[2020-05-07] MEDS: Insulin Glargine 17 UNITS in Pre-Filled Syringe 1 EACH SC SCH (08:16)
--- NOTE | 2020-05-07 08:18 | RAD ---
CHEST 1 VIEW: Date: 05/07/2020 INDICATION: History of intubation. COMPARISON: Prior exam dated 05/06/2020. IMPRESSION: There is worsening bilateral air space disease. ET tube tip is not appreciably changed. There is giovanni chloe catheter projecting below the left hemidiaphragm and beyond the field of view, new from the prior exam. No pneumothorax is evident. POS: BH
[2020-05-07] MEDS: Enoxaparin Sodium 60 MG/0.6 ML SYRINGE SC SCH ×3 (09:50→20:49)
[2020-05-07] MEDS: Valsartan 80 MG TAB PO SCH (09:50)
[2020-05-07] MEDS: Vancomycin HCl 1.25 GM in Sodium Chloride 0.9% 250 ML 250 ML IVPB SCH (12:19)
[2020-05-07] MEDS: fentaNYL Citrate/PF 2,000 MCG in Sodium Chloride 0.9% 60 ML IV SCH (12:47)
--- NOTE | 2020-05-07 14:37 | PRG ---
DATE OF SERVICE: 05/07/2020 SUBJECTIVE: He continues to receive ventilatory support for his COVID pneumonia. Current ventilator settings include bilevel 34/10, FiO2 70%. PHYSICAL EXAMINATION: VITAL SIGNS: Blood pressure 88/60, heart rate 86, respiratory rate 30, saturation 95 on ventilator settings as above. He is sedated. LUNGS: Coarse rhonchi bilaterally. HEART: Regular rate and rhythm. ABDOMEN: Soft. Bowel sounds are normal. He has no edema. IMAGING DATA: Chest x-ray shows worsening bilateral consolidations. LABORATORY DATA: White count 11,800, hemoglobin 11.2 with platelet count 76,000. This platelet count is trending downward over the past several days and if that trend continues, we will need to hold his Lovenox. Electrolytes are normal including BUN 21 and creatinine of 0.7. IMPRESSION: 1. Coronavirus disease pneumonia with hypoxic hypercapnic respiratory failure. 2. Evolving thrombocytopenia possibly secondary to the Lovenox. PLAN: We will continue current supportive therapies. If platelets continue to trend down, we need to hold his anticoagulant therapy. At this point, there is not much we can do from a weaning perspective. Job ID: [id number]
[2020-05-07] MEDS: Lorazepam 2 MG/ML VIAL SLOW IVP PRN ×2 (17:01→23:35)
[2020-05-07] MEDS: Simvastatin 5 MG TAB PO SCH (20:50)
[2020-05-07 22:23] LABS: Vancomycin, Trough 11.6 ug/mL
[2020-05-07] MEDS: Vancomycin 1.5 GRAM/300 ML BAG 1.5 GM in Premix Bag 1 BAG IVPB SCH (23:32)
[2020-05-08] MEDS: Propofol 1,000 MG/100 ML VIAL IV PRN ×4 (01:24→20:47)
[2020-05-08] MEDS: Lorazepam 2 MG/ML VIAL SLOW IVP PRN ×2 (02:30→16:37)
[2020-05-08] MEDS: fentaNYL Citrate/PF 2,000 MCG in Sodium Chloride 0.9% 60 ML IV SCH ×2 (02:30→15:58)
[2020-05-08] MEDS: Albuterol 200 PUFF (6.7GM INHALER) INH SCH ×4 (02:33→19:15)
[2020-05-08] MEDS: HumaLOG 300 UNITS/3 ML VIAL SC PRN ×4 (04:20→21:30)
[2020-05-08 05:15] LABS: Anion Gap 9 mmol/L (10-20); BUN (Urea Nitrogen) 37 mg/dL (8.4-25.7); Calc. Creatinine Clearance 104 mL/min (70-130); Calcium 7.8 mg/dL (7.8-10.44); Carbon Dioxide 31 mmol/L (23-31); Chloride 104 mmol/L (98-107); Glucose 262 mg/dL (83-110); Sodium 139 mmol/L (136-145)
--- NOTE | 2020-05-08 05:27 | PDOC.FM ---
- Subjective Subjective: Intubated and sedated. No acute events overnight. - Objective Vital Signs & Weight: Vital Signs (12 hours) Temp Pulse Resp Pulse Ox 05/08/20 04:00 96.4 F L 30 H 05/08/20 02:32 75 05/08/20 02:00 30 H 05/08/20 00:00 96.9 F L 30 H 05/07/20 22:44 79 05/07/20 22:00 30 H 05/07/20 20:00 30 H 05/07/20 19:40 97 05/07/20 19:00 96.9 F L 30 H 05/07/20 18:49 76 05/07/20 18:00 30 H Weight Admit Weight 89.358 kg Weight 85.2 kg Most Recent Monitor Data Heart Rate from ECG 72 NIBP 93/62 NIBP BP-Mean 72 Respiration from ECG 30 SpO2 100 I&O: 05/06/20 05/07/20 05/08/20 06:59 06:59 06:59 Intake Total 1088 2500.9 1763.4 Output Total 575 1844 1100 Balance 513 656.9 663.4 Result Diagrams: 05/08/20 04:20 05/08/20 04:20 Phys Exam - Physical Examination intubated and sedated HEENT: moist MMs Neck: supple, full ROM decreased breath sounds throughout Cardiovascular: RRR, no significant murmur Gastrointestinal: soft, no distention Musculoskeletal: no edema sedated Skin: no rash Dx/Plan (1) Acute respiratory failure with hypoxia Code(s): J96.01 - ACUTE RESPIRATORY FAILURE WITH HYPOXIA Status: Acute (2) Pneumonia due to COVID-19 virus Code(s): U07.1 - COVID-19; J12.89 - OTHER VIRAL PNEUMONIA Status: Acute - Plan Plan: #Acute Hypoxic Resp failure / COVID PNA (+ on 04/22) - Patient's steroids increased to 40mg methylprednisolone Q6H 04/25, decreased to BID 05/05, Albuterol PRN - Received Conv plasma and started remdesivir 04/24. ID consulted. - Pulm consulted. Rec conv plasma, remdesivir, added doxycycline 04/25, and monitoring; - Patient intubated 05/05 due to respiratory fatigue; tolerated the procedure we ll -fentanyl @ 7.5, propofol @ 12.8 for sedation -satting 96% on Bi-level, FiO2 70% - Started tube feeds 05/07 - Dietary consulted to assist with nutritional needs - BID lovenox - IV protonix for stress ulcer prevention - Daily discussions with family; family updated before and after intubation , agreeable with the plan of care #Thrombocytopenia -patients platelets dropped from 126>76 on 05/07, and again to 62 on 05/08 -can consider decreasing lovenox dosing #UTI -urine 05/06 demonstrated 250LE, 1+ bacteria -patient's WBC increased over the course of the last several days; procal increased -patient started on vancomycin and cefepime 05/06 for concern for hospital acquired pna #Concern for hospital acquired pna -procal increased, wbc increased, patient required intubation -started on vancomycin and cefepime 05/06 #DM - Hold home meds - Hypoglycemia protocol - ACHS glucose checks - Lantus added to regimen 04/27 as blood glucose elevated, likely 2/2 steroids #HTN - Continue home meds #HLD - Continue home meds DVTppx: lovenox BID Diet: Tube feeds @ 22ml/hr PCP: Melvin Code status: Full Addendum - Attending - Attending Attestation Date/Time: 05/08/20 2001 I personally evaluated the patient and discussed the management with Dr. Lantigua I agree with the History, Examination, Assessment and Plan documented above with any addition or exceptions noted below. Continue trend platelets and continue lovenox for now. Patient tolerating feeds he continues on bi-level ventilatory support will continue observation for signs of pneumothorax development with continued prolonged pressure support.
[2020-05-08] MEDS: Cefepime 2 GM in Sodium Chloride 0.9% 100 ML IVPB SCH ×3 (05:41→20:51)
[2020-05-08 06:11] LABS: Band 3 % (5-11); Hemoglobin 10.6 g/dL (14.0-18.0); Lymphocytes 2 % (21-51); MDiff Complete? YES; Mean Corpuscular HGB CONC 32.3 g/dL (32.0-36.0); Mean Corpuscular Hemoglobin 31.4 pg (27.0-31.0); Mean Corpuscular Volume 97.2 fL (78.0-98.0); Mean Platelet Volume 9.6 fL (7.4-10.4); Monocytes 1 % (0-10); Neutrophil 94 % (42-75); Platelet Count 62 thou/uL (130-400); Platelet Morphology Comment Appears Decreased; RBC Distribution Width 12.9 % (11.5-14.5); RBC Morphology Normal; Red Blood Cell (RBC) Count 3.39 mill/uL (4.70-6.10); White Blood Cell (WBC) Count 7.2 thou/uL (4.8-10.8)
--- NOTE | 2020-05-08 06:22 | PDOC.BPN ---
- Brief Progress Note Encounter Date: 05/08/20 This is a transition of care note for patient Clifton Aguilar. The patient was admitted for acute hypoxic respiratory failure 2/2 COVID pna. He was transitioned from HFNC to BiPAP (04/29), which he tolerated well until he acutely decompensated on 05/05 and required intubation. Intubation was achieved successfully by Dr. Miller from anesthesiology. The patient has been given convalescent plasma, on 04/24/20. He was also given remdesivir starting on 04/24/20. The patient has been on steroids since admission, which were titrated up to 40mg methylprednisolone IV Q6H on 04/25 and then decreased to BID on 05/05. The patient was on doxycycline BID 04/25-05/05. On 05/06 the patient's WBC was elevated and his procal was as well. He had also fevered overnight of 05/05. UA and urine cx were collected, demonstrating UTI. He was started on vancomycin and cefepime on 05/06 for concern for possible development of hospital acquired pna. He was also started on albumin 05/06. Patient has a hx of DM, for which he has been receiving lantus which has been continuously titrated. As of today patient is tolerating intubation, requiring fentanyl and propofol for sedation. He was started on tube feeds 05/07. CXRs continue to demonstrate worsening bilateral airspace disease. Daily conversations have been had with the patient's family to update them. They were consistently agreeable with the patient being intubated if necessary, and are currently agreeable with his plan of care.
[2020-05-08] MEDS: Mometasone 200 MCG/Formoterol 5 MCG 120 PUFF INHALER INH SCH ×2 (07:35→19:16)
[2020-05-08 07:52] LABS: Actual Bicarbonate (HCO3a) 24.7 mEq/L (22-28); Analyzer IN Cardio ER; Base Excess (BEa) -2.5 mEq/L (-2.0 to +3.0); CO2 Tension 54.6 mmHg (35.0-45.0); Calcium, Ionized (arterial) 1.17 mmol/L (1.12-1.30); Hemoglobin (Hb) 10.6 g/dL (14.0-18.0); O2 Tension (PaO2), arterial 93.1 mmHg (> 70.0); Potassium - ABG Lab 4.63 mmol/L (3.70-5.30); pH, Arterial 7.27 (7.35-7.45)
[2020-05-08 08:00] LABS: Puncture Site RRA
[2020-05-08] MEDS: Calcium Carbonate 600 MG + Vit D TAB PO SCH (08:02)
[2020-05-08] MEDS: Pantoprazole 40 MG VIAL IVP SCH (08:02)
[2020-05-08] MEDS: methylPREDNISolone Sod Succ 40 MG VIAL IVP SCH ×2 (08:02→20:43)
[2020-05-08] MEDS: Fish Oil 1,000 MG CAP PO SCH (08:02)
[2020-05-08] MEDS: Insulin Glargine 21 UNITS in Pre-Filled Syringe 1 EACH SC SCH (08:51)
[2020-05-08] MEDS: Valsartan 80 MG TAB PO SCH (09:40)
[2020-05-08] MEDS: Enoxaparin Sodium 60 MG/0.6 ML SYRINGE SC SCH ×2 (09:52→20:53)
--- NOTE | 2020-05-08 10:42 | RAD ---
CHEST ONE VIEW: INDICATIONS: History of intubation. COMPARISON: 05/07/2020 FINDINGS: Since the comparison examination there is improvement in the air space disease bilaterally. Diffuse a ir space opacities remain however. The patient remains intubated. Gastric catheter placement. Cardiom egaly and pulmonary vascular congestion remain. Small bilateral pleural effusions persist. No pneumot horax is evident. IMPRESSION: Improvement in the air space opacities bilaterally is most consistent with improving air space edema. Moderate to severe congestive heart failure remains, however. Continued followup is recommended. POS: CATE
[2020-05-08] MEDS: Vancomycin 1.5 GRAM/300 ML BAG 1.5 GM in Premix Bag 1 BAG IVPB SCH ×2 (11:29→23:25)
--- NOTE | 2020-05-08 13:32 | PRG ---
DATE OF SERVICE: 05/08/2020 SUBJECTIVE: He continues to receive substantial ventilatory support including a rate of 30, bilevel 32/12 and FiO2 of 70%. He remained sedated. OBJECTIVE: VITAL SIGNS: Blood pressure 91/49, heart rate is 83, and saturation 93% on vent settings as above. He is afebrile. GENERAL: He is not responsive to verbal stimuli. NECK: He has no JVD. LUNGS: Show bilateral rhonchi without wheezing. HEART: Regular rate and rhythm. ABDOMEN: Soft. He has no cords or tenderness. LABORATORY DATA: X-ray shows extensive bilateral multilobar infiltrates without pneumothorax or effusion. White count 7000, hemoglobin is 10.6, and hematocrit of 32.9. He has 92 segs and 3 bands. Arterial blood gas shows pH of 7.27, CO2 of 55, pO2 of 93, and bicarbonate of 24 on vent settings as above. Chemistries include sodium 139, potassium 5, chloride 104, CO2 is 31, BUN 37, and creatinine 0.6. IMPRESSION: 1. COVID pneumonia. 2. Thrombocytopenia. Platelet today down to 62. It was 76,000 yesterday and 126, 48 hours ago. PLAN: We will continue same ventilator settings. Weaning has been difficult at best. He is becoming progressively thrombocytopenic. We will give him one additional day, but I think if he gets down to 50,000, we will need to stop his Lovenox therapy. Critical care, 30 minutes. Job ID: [id number]
[2020-05-08] MEDS: Simvastatin 5 MG TAB PO SCH (20:43)
[2020-05-08] MEDS ORDERED: Enoxaparin Sodium 40 MG/0.4 ML SYRINGE SC SCH (21:00)
[2020-05-09] MEDS: Albuterol 200 PUFF (6.7GM INHALER) INH SCH ×4 (01:43→18:36)
[2020-05-09] MEDS: fentaNYL Citrate/PF 2,000 MCG in Sodium Chloride 0.9% 60 ML IV SCH ×2 (04:42→18:13)
[2020-05-09] MEDS: Cefepime 2 GM in Sodium Chloride 0.9% 100 ML IVPB SCH ×3 (05:00→18:33)
[2020-05-09] MEDS: HumaLOG 300 UNITS/3 ML VIAL SC PRN ×4 (05:22→23:21)
[2020-05-09 05:40] LABS: Band 11 % (5-11); Hemoglobin 10.7 g/dL (14.0-18.0); Hypochromia SLIGHT = 6-15 cells (100X) (0-5/hpf); Lymphocytes 5 % (21-51); MDiff Complete? YES; Mean Corpuscular HGB CONC 32.7 g/dL (32.0-36.0); Mean Corpuscular Hemoglobin 31.5 pg (27.0-31.0); Mean Corpuscular Volume 96.4 fL (78.0-98.0); Mean Platelet Volume 9.8 fL (7.4-10.4); Monocytes 4 % (0-10); Neutrophil 80 % (42-75); Platelet Count 57 thou/uL (130-400); Platelet Morphology Comment Appears Decreased; RBC Distribution Width 12.6 % (11.5-14.5); Red Blood Cell (RBC) Count 3.41 mill/uL (4.70-6.10); White Blood Cell (WBC) Count 5.6 thou/uL (4.8-10.8)
[2020-05-09] MEDS: Propofol 1,000 MG/100 ML VIAL IV PRN ×3 (05:42→18:13)
[2020-05-09 05:53] LABS: Anion Gap 9 mmol/L (10-20); BUN (Urea Nitrogen) 41 mg/dL (8.4-25.7); Calc. Creatinine Clearance 102 mL/min (70-130); Calcium 7.8 mg/dL (7.8-10.44); Carbon Dioxide 31 mmol/L (23-31); Chloride 105 mmol/L (98-107); Glucose 316 mg/dL (83-110); Potassium 5.1 mmol/L (3.5-5.1); Sodium 140 mmol/L (136-145)
--- NOTE | 2020-05-09 06:46 | PDOC.FM ---
- Subjective Subjective: Pt sedated on propafol and fentanyl FIO2 50 RR 30 Peep increased from 12 to 13 this morning on rounds by Dr. Hankins. Tube feeds @ 22. No acute overnight events Off pressor support and maintaining BP's in 90/60 range. - Objective MAR Reviewed: Yes Vital Signs & Weight: Vital Signs (12 hours) Temp Pulse Resp Pulse Ox 05/09/20 06:00 30 H 05/09/20 04:00 30 H 05/09/20 02:45 67 05/09/20 02:00 30 H 05/09/20 01:00 98.6 F 05/09/20 00:00 30 H 05/08/20 22:52 78 05/08/20 22:00 30 H 05/08/20 20:00 30 H 100 05/08/20 19:16 81 05/08/20 19:00 98.2 F Weight Admit Weight 89.358 kg Weight 87.6 kg Most Recent Monitor Data Heart Rate from ECG 70 NIBP 88/61 NIBP BP-Mean 70 Respiration from ECG 30 SpO2 95 I&O: 05/07/20 05/08/20 05/09/20 06:59 06:59 06:59 Intake Total 2500.9 2717.3 2025.1 Output Total 1844 1190 1540 Balance 656.9 1527.3 485.1 Result Diagrams: 05/09/20 05:04 05/09/20 05:04 Radiology Reviewed by me: Yes (worsening cxr oapacities today ) Phys Exam - Physical Examination intubated and sedated HEENT: moist MMs, sclera anicteric Neck: supple Respiratory: no wheezing, no rales, no rhonchi, clear to auscultation bilateral Cardiovascular: RRR, no significant murmur Gastrointestinal: soft, no distention, positive bowel sounds Musculoskeletal: pulses present, edema present sedated and intubated. Skin: no rash, normal turgor Dx/Plan (1) Acute respiratory failure with hypoxia Code(s): J96.01 - ACUTE RESPIRATORY FAILURE WITH HYPOXIA Status: Acute (2) Pneumonia due to COVID-19 virus Code(s): U07.1 - COVID-19; J12.89 - OTHER VIRAL PNEUMONIA Status: Acute - Plan Plan: #Acute Hypoxic Resp failure 2/2 COVID PNA (+ on 04/22) - Patient's steroids increased to 40mg methylprednisolone Q6H 04/25, decreased to BID 05/05, Albuterol PRN - Received Conv plasma and started remdesivir 04/24. ID consulted. - Pulm consulted. Rec conv plasma, remdesivir, added doxycycline 04/25-05/05 - Patient intubated 05/05 due to respiratory fatigue; tolerated the procedure well -fentanyl @ 7.5, propofol @ 12.8 for sedation -satting 9% on Bi-level, FiO2 50% - Started cefepime and vanc on 05/06 for possible HAP - Started tube feeds 05/07 @ 22 - Dietary consulted to assist with nutritional needs - BID lovenox, hold if plt <50, 56 on 05/09. Decreased dose from 60 mg bid to 30 mg bid on 05/09. - IV protonix for stress ulcer prevention - Daily discussions with family; family updated before and after intubation 05/05, agreeable with the plan of care - CXR wosened todya on 05/09, stat BNP ordered, plan to add lasix is >[address] Helton recs. #Thrombocytopenia -patients platelets dropped from 126>76>62, and again to 56 on 05/09 - Decreased dose to 30 mg BID lovenox on 05/09. -critical care recs to d/c lovenox of plt <50. #UTI -urine 05/06 demonstrated 250LE, 1+ bacteria. urine ccx: yeast 25-50k. -patient's WBC increased over the course of the last several days; procal increased -patient started on vancomycin and cefepime 05/06 for concern for hospital acquired pna #Concern for hospital acquired pna -procal increased, wbc increased, patient required intubation -started on vancomycin and cefepime 05/06 - Pplan to d.c vanc on 05/10. #DM - Hold home meds - Hypoglycemia protocol - ACHS glucose checks - Lantus added to regimen 04/27 as blood glucose elevated, likely 2/2 steroids #HTN - Continue home meds, Valsartan. #HLD - Continue home meds DVTppx: lovenox 30 mg BID, hold if plt <50 Diet: Tube feeds @ 22ml/hr PCP: Melvin Code status: Full
[2020-05-09] MEDS: Mometasone 200 MCG/Formoterol 5 MCG 120 PUFF INHALER INH SCH ×2 (07:30→18:36)
--- NOTE | 2020-05-09 07:53 | RAD ---
Portable frontal chest radiograph: 05/09/2020 COMPARISON: 05/08/2020 HISTORY: Intubated patient FINDINGS: Stable endotracheal tube and nasogastric tube. Body habitus and shallow inspiration limits detailed assessment. There has been significant interval worsening in aeration within both lungs with near complete opacification bilaterally suggesting worsening airspace disease and probable assoc iated pleural effusions. IMPRESSION: Significant interval worsening in bilateral aeration with near complete opacification of bilateral hemithoraces which may signify worsening edema, infectious pneumonitis, and/or aspiration. Short-term follow-up imaging following treatment advised.
[2020-05-09 08:31] LABS: Actual Bicarbonate (HCO3a) 26.2 mEq/L (22-28); Analyzer IN Cardio OR; Base Excess (BEa) 0.3 mEq/L (-2.0 to +3.0); CO2 Tension 48.3 mmHg (35.0-45.0); Calcium, Ionized (arterial) 1.14 mmol/L (1.12-1.30); Carboxyhemoglobin (COHb) 1.7 gm% (0.0-3.0); Hemoglobin (Hb) 10.9 g/dL (14.0-18.0); Potassium - ABG Lab 4.91 mmol/L (3.70-5.30); pH, Arterial 7.35 (7.35-7.45)
[2020-05-09 08:37] LABS: O2 Tension (PaO2), arterial 46.5 mmHg (> 70.0); Puncture Site RRA
[2020-05-09 08:38] LABS: ALV-art Gradient 320.925 mmHg (0-20)
[2020-05-09] MEDS ORDERED: Enoxaparin Sodium 30 MG/0.3 ML SYRINGE SC SCH (09:00)
[2020-05-09] MEDS: Vecuronium 10 MG VIAL IV PRN (10:38)
[2020-05-09 10:41] LABS: Vancomycin, Trough 19.9 ug/mL
[2020-05-09] MEDS: Fish Oil 1,000 MG CAP PO SCH (10:45)
[2020-05-09] MEDS: Pantoprazole 40 MG VIAL IVP SCH (10:46)
--- NOTE | 2020-05-09 10:53 | PRG ---
DATE OF SERVICE: 05/09/2020 SUBJECTIVE: A 74-year-old gentleman, remains in ICU, intubated on the vent, day #16, juan positive. OBJECTIVE: VITAL SIGNS: Temperature 98, pulse 66, blood pressure 120/68, respiratory rate 18, saturations 90%. CHEST: No rhonchi or crackles. CARDIAC: Sinus. ABDOMEN: Soft. LABORATORY DATA: White count 5000, H and H of 10 and 32, platelet count is low at 57, slowly decreasing. His PO2 was only 46, . Renal function is normal. X-ray shows diffuse worsening pulmonary infiltrates. IMPRESSION: Juan positive pneumonia, acute respiratory distress syndrome, severe thrombocytopenia. PLAN: Increase low PEEP to 13. The patient is clearly not weanable. We will decrease the Lovenox to 30 q.12 since he is very thrombocytopenic. Continue nutrition and supportive care. Continue steroids. Prognosis remains guarded. Cultures are negative, would consider discontinue vancomycin. One-half hour of critical care time. Job ID: [id number]
[2020-05-09] MEDS: Valsartan 80 MG TAB PO SCH (11:31)
[2020-05-09] MEDS: Enoxaparin Sodium 60 MG/0.6 ML SYRINGE SC SCH (11:31)
--- NOTE | 2020-05-09 11:34 | PDOC.PALPN ---
Palliative Progress Note - Subjective Sedated, intubated, mechanical ventilation. - Objective Vital Signs: Vital Signs - Most Recent Temp Pulse Resp BP Pulse Ox 98.6 F 78 30 H 103/67 100 05/09/20 01:00 05/09/20 11:13 05/09/20 06:00 05/07/20 13:25 05/08/20 20:00 - Physical Exam Constitutional: encephalitic, ill appearing HEENT: moist MMs Respiratory: no wheezing Deviation from normal: Mechanical ventilation, diminished to bases Cardiovascular: irregular Gastrointestinal: soft, non-tender, incontinent Genitourinary: pretty catheter Musculoskeletal: no clubbing Neurology: moves all 4 limbs Deviation from normal: Sedated Skin: cap refill <2 seconds, no lesions, no rash Deviation from normal: encephalopathic - Assessment (1) Palliative care encounter Code(s): Z51.5 - ENCOUNTER FOR PALLIATIVE CARE Current Visit: Yes Status: Acute (2) Acute respiratory failure with hypoxia Code(s): J96.01 - ACUTE RESPIRATORY FAILURE WITH HYPOXIA Current Visit: Yes Status: Acute (3) Pneumonia due to COVID-19 virus Code(s): U07.1 - COVID-19; J12.89 - OTHER VIRAL PNEUMONIA Current Visit: Yes Status: Acute - Plan Plan: Palliative care had previously addressed Goal of Care with Mr Aguilar. He was agreeable for intubation, however had expressed he did not want to be intubated or have a PEG. Called and spoke with Mrs Aguilar and her daughter. Discussed health status, and guarded prognosis. Answered questions, Mrs Aguilar requested that I call and update her son as well. Spoke with Tanner patient son. He appears to understand fragile state of his father. Requested for a person to visit his dad to offer emotional support. Also requested for a CD player for [employer] music. Will follow up to address requests, stated that I would follow up in 24 hours. For today, family is requesting to continue with all aggressive measures. Palliative Care will continue to provide emotional and therapeutic support. Will ensure Spiritual care consult had been placed. Communicated with Dr Helton and Dr Aiken [40] minutes spent on this encounter with >50% of the time in counseling and coordination of care. - ROS Non Response: due to endotracheal tube, due to mental status
[2020-05-09] MEDS: Calcium Carbonate 600 MG + Vit D TAB PO SCH (11:43)
[2020-05-09] MEDS: Insulin Glargine 21 UNITS in Pre-Filled Syringe 1 EACH SC SCH ×2 (11:44→13:19)
[2020-05-09] MEDS: methylPREDNISolone Sod Succ 40 MG VIAL IVP SCH ×2 (12:15→20:52)
[2020-05-09] MEDS: Vancomycin 1.5 GRAM/300 ML BAG 1.5 GM in Premix Bag 1 BAG IVPB SCH ×2 (13:18→23:12)
[2020-05-09] MEDS: Simvastatin 5 MG TAB PO SCH (20:52)
[2020-05-10] MEDS: Albuterol 200 PUFF (6.7GM INHALER) INH SCH ×4 (00:07→19:02)
[2020-05-10] MEDS: Propofol 1,000 MG/100 ML VIAL IV PRN ×4 (00:53→16:47)
[2020-05-10] MEDS: Cefepime 2 GM in Sodium Chloride 0.9% 100 ML IVPB SCH ×3 (02:23→18:32)
[2020-05-10 05:23] LABS: Band 7 % (5-11); Hemoglobin 10.8 g/dL (14.0-18.0); Lymphocytes 6 % (21-51); MDiff Complete? YES; Mean Corpuscular HGB CONC 32.8 g/dL (32.0-36.0); Mean Corpuscular Hemoglobin 31.5 pg (27.0-31.0); Mean Corpuscular Volume 96.1 fL (78.0-98.0); Mean Platelet Volume 9.8 fL (7.4-10.4); Metamyelocyte 2 % (0-0); Monocytes 2 % (0-10); Neutrophil 83 % (42-75); Platelet Count 62 thou/uL (130-400); Platelet Morphology Comment Appears Decreased; RBC Distribution Width 12.7 % (11.5-14.5); Red Blood Cell (RBC) Count 3.43 mill/uL (4.70-6.10); White Blood Cell (WBC) Count 6.5 thou/uL (4.8-10.8)
[2020-05-10 05:24] LABS: Anion Gap 9 mmol/L (10-20); BUN (Urea Nitrogen) 35 mg/dL (8.4-25.7); Calc. Creatinine Clearance 115 mL/min (70-130); Calcium 7.6 mg/dL (7.8-10.44); Carbon Dioxide 29 mmol/L (23-31); Chloride 107 mmol/L (98-107); Glucose 260 mg/dL (83-110); Potassium 5.2 mmol/L (3.5-5.1); Sodium 140 mmol/L (136-145)
[2020-05-10] MEDS: Fondaparinux Sodium 2.5 MG/0.5 ML SYRINGE SC SCH (05:47)
[2020-05-10] MEDS: HumaLOG 300 UNITS/3 ML VIAL SC PRN ×2 (05:57→10:55)
[2020-05-10] MEDS: Mometasone 200 MCG/Formoterol 5 MCG 120 PUFF INHALER INH SCH ×2 (07:20→19:02)
--- NOTE | 2020-05-10 07:27 | PDOC.FM ---
- Subjective Subjective: No acute overnight events This AM with awakening from sedation briefly, pt became hypoxic to 88% and was anxious. blood gas improved this AM to pO2 55 Peep @ 13 Family meeting this AM with son, family continues to desire full code status, will continue to monitor for improvement on day by day basis. Possible family meeting with in a couple of days to revisit code status and goals of care. - Objective MAR Reviewed: Yes Vital Signs & Weight: Vital Signs (12 hours) Temp Pulse Resp BP Pulse Ox 05/10/20 06:00 30 H 05/10/20 04:00 98.6 F 30 H 05/10/20 02:29 59 L 05/10/20 02:00 30 H 05/10/20 00:08 67 93/58 L 05/10/20 00:00 98.9 F 30 H 05/09/20 22:22 67 88/55 L 05/09/20 22:00 30 H 05/09/20 20:00 98.8 F 30 H 97 Weight Admit Weight 89.358 kg Weight 89.4 kg Most Recent Monitor Data Heart Rate from ECG 66 NIBP 94/53 NIBP BP-Mean 66 Respiration from ECG 30 SpO2 96 I&O: 05/09/20 05/10/20 05/11/20 06:59 06:59 06:59 Intake Total 2025.1 2132 Output Total 1540 1290 Balance 485.1 842 Result Diagrams: 05/10/20 04:45 05/10/20 04:45 Radiology Reviewed by me: Yes (improved from yesterday, B diffuse pnuemonia ) Phys Exam - Physical Examination Constitutional: NAD (sedated and on ventilator) HEENT: moist MMs, sclera anicteric Neck: no JVD, supple Respiratory: no wheezing, no rales, no rhonchi, clear to auscultation bilateral Cardiovascular: RRR, no significant murmur Gastrointestinal: soft, no distention, positive bowel sounds Musculoskeletal: pulses present sedated, PERRL Skin: no rash, normal turgor Dx/Plan (1) Acute respiratory failure with hypoxia Code(s): J96.01 - ACUTE RESPIRATORY FAILURE WITH HYPOXIA Status: Acute (2) Pneumonia due to COVID-19 virus Code(s): U07.1 - COVID-19; J12.89 - OTHER VIRAL PNEUMONIA Status: Acute - Plan Plan: #Acute Hypoxic Resp failure 2/2 COVID PNA (+ on 04/22) - Patient's steroids increased to 40mg methylprednisolone Q6H 04/25, decreased to BID 05/05, Albuterol PRN - Received Conv plasma and started remdesivir 04/24. ID consulted. - Pulm consulted. Rec conv plasma, remdesivir, added doxycycline 04/25-05/05 - Patient intubated 05/05 due to respiratory fatigue; tolerated the procedure well -fentanyl @ 7.5, propofol @ 12.8 for sedation -satting 9% on Bi-level, FiO2 50% - Started cefepime and vanc on 05/06 for possible HAP. D.c vanc on 04/30 due to neg blood cxc. - Started tube feeds 05/07 @ 22 - Dietary consulted to assist with nutritional needs - Lovenox d/c'd on 05/09 and switched to Fondparinox due to severe thrombocytopenia. - IV protonix for stress ulcer prevention - Daily discussions with family; family updated before and after intubation 05/05, agreeable with the plan of care - CXR worsened on 05/09, slightly improved on 05/10. - will Prone for 18 hr of day, supine for other 6 hr. for X3 days, per Dr. Sunitha dominguez. - Family meeting today at 10 AM: code status remains full code, continue supportive care with vent and revisit goals of care in a couple of days. #Thrombocytopenia -patients platelets dropped from 126>76>62, and again to 56 on 05/09 - D/C's lovenox and started fondparinox due to side effect profile not causing as much thrombocytopenia. #UTI-improved -urine 05/06 demonstrated 250LE, 1+ bacteria. urine ccx: yeast 25-50k. -patient's WBC increased over the course of the last several days; procal increased -patient started on vancomycin and cefepime 05/06 for concern for hospital acquired pna. Vand d/c'd 05/10. #Concern for hospital acquired pna -procal increased, wbc increased, patient required intubation -started on vancomycin and cefepime 05/06. Vanc D/c'd on 05/10. #DM - Hold home meds - Hypoglycemia protocol - ACHS glucose checks - Lantus added to regimen 04/27 as blood glucose elevated, likely 2/2 steroids #HTN - Continue home meds, Valsartan. #HLD - Continue home meds DVTppx: Fondparinox 5 mg SC daily Diet: Tube feeds @ 22ml/hr PCP: Melvin Code status: Full, per family care goal meeting 05/10 with palliative care team. Addendum - Attending - Attending Attestation Date/Time: 05/10/20 2455 I personally evaluated the patient and discussed the management with Dr. Aiken. I agree with the History, Examination, Assessment and Plan documented above with any addition or exceptions noted below. Stable from yesterday. prognosis remains guarded.
[2020-05-10 07:40] LABS: Actual Bicarbonate (HCO3a) 26.4 mEq/L (22-28); Analyzer IN Cardio ER; Base Excess (BEa) 1.2 mEq/L (-2.0 to +3.0); CO2 Tension 44.3 mmHg (35.0-45.0); Calcium, Ionized (arterial) 1.15 mmol/L (1.12-1.30); Carboxyhemoglobin (COHb) 1.2 gm% (0.0-3.0); Hemoglobin (Hb) 11.2 g/dL (14.0-18.0); Potassium - ABG Lab 4.85 mmol/L (3.70-5.30); pH, Arterial 7.39 (7.35-7.45)
[2020-05-10] MEDS: fentaNYL Citrate/PF 2,000 MCG in Sodium Chloride 0.9% 60 ML IV SCH ×2 (07:55→23:01)
[2020-05-10] MEDS: Lorazepam 2 MG/ML VIAL SLOW IVP PRN ×3 (07:55→16:47)
--- NOTE | 2020-05-10 08:03 | RAD ---
XR Chest 1 View Portable History: Ventilated patient Comparison: Radiograph prior day Findings: Endotracheal tube tip sits above the vinayak 5.3 cm. Extensive perihilar airspace opacities. The lung inflation is improved from the comparison examination. No pneumothorax. Enteric tube tip below diaphragm although out of field of view. No acute osseous abnormality. Impression: Given differences in lung aeration, similar examination of the chest.
[2020-05-10 08:19] LABS: ALV-art Gradient 316.625 mmHg (0-20); O2 Tension (PaO2), arterial 55.8 mmHg (> 70.0); Puncture Site RRA
[2020-05-10] MEDS: Valsartan 80 MG TAB PO SCH (09:00)
[2020-05-10] MEDS: Insulin Glargine 21 UNITS in Pre-Filled Syringe 1 EACH SC SCH ×2 (09:00→13:22)
[2020-05-10] MEDS: Calcium Carbonate 600 MG + Vit D TAB PO SCH ×2 (09:00→13:19)
[2020-05-10] MEDS: methylPREDNISolone Sod Succ 40 MG VIAL IVP SCH ×3 (09:00→20:34)
[2020-05-10] MEDS: Fish Oil 1,000 MG CAP PO SCH ×2 (09:00→13:18)
[2020-05-10] MEDS: Pantoprazole 40 MG VIAL IVP SCH ×2 (09:00→13:20)
--- NOTE | 2020-05-10 09:57 | PRG ---
DATE OF SERVICE: 05/10/2020 SUBJECTIVE: A 74-year-old gentleman, remains intubated in the vent. X-ray shows diffuse infiltrates. A pO2 of 55 and pCO2 of 44, percent of 89, day 5 on the vent. Lytes are normal. OBJECTIVE: VITAL SIGNS: , blood pressure 94/53, respiratory rate 18 . CHEST: No wheezing. No crackles. CARDIAC: Normal S1 and S2. No gallops. ABDOMEN: Soft. LABORATORY DATA: White count 6000 and platelet count is 62,000, low. Lytes were otherwise normal. ASSESSMENT: Acute respiratory distress syndrome and juan positive pneumonia. PLAN: We are going to try and flip him over today. An 18 hours prone and 6 hours supine for 3 days. Continue antibiotics. Continue high-dose steroids and supportive care. Avoid paralytics as much as possible. Discontinue vancomycin. We will follow. One-half hour of critical care time. Job ID: [id number]
--- NOTE | 2020-05-10 10:51 | PDOC.PALPN ---
Palliative Progress Note - Subjective Intubated, mechanical ventilation. Sedated, becomes anxious with decrease in sedation and decline in ox saturation. Remains on steroids and abx therapy - Objective Vital Signs: Vital Signs - Most Recent Temp Pulse Resp BP Pulse Ox 98.6 F 66 30 H 93/58 L 97 05/10/20 04:00 05/10/20 10:47 05/10/20 06:00 05/10/20 00:08 05/09/20 20:00 - Physical Exam Constitutional: encephalitic, ill appearing HEENT: moist MMs Respiratory: no wheezing Deviation from normal: mechanical ventilation Peep 13 Gastrointestinal: soft, non-tender, positive bowel sounds Genitourinary: pretty catheter Musculoskeletal: no cyanosis, no clubbing Deviation from normal: Sedated, facial symmetry Skin: cap refill <2 seconds, no lesions, no rash Deviation from normal: encephalopathic, sedated - Assessment (1) Palliative care encounter Code(s): Z51.5 - ENCOUNTER FOR PALLIATIVE CARE Current Visit: Yes Status: Acute (2) Acute respiratory failure with hypoxia Code(s): J96.01 - ACUTE RESPIRATORY FAILURE WITH HYPOXIA Current Visit: Yes Status: Acute (3) Pneumonia due to COVID-19 virus Code(s): U07.1 - COVID-19; J12.89 - OTHER VIRAL PNEUMONIA Current Visit: Yes Status: Acute - Plan Plan: Played voice recordings from family for patient. Also coordinated Casimiro to pray over his dad via phone. Met with Casimiro and Dr Aiken, revisited current health status. Relayed hope to prone patient today. Discussed currently to continue with full resuscitation measures Revisited surrogate decision maker. Casimiro (Oldest of the 4 children) is going to visit with his mother and they may transition surrogate decision maker from Mrs Aguilar to Casimiro Aguilar. Palliative care will continue to play recordings, and place prayer shroud over patient when able. Will clarify visitation for patient once his Covid isolation is removed and relay to family/ Fever free 24 hours, improving symptoms and 20 days post onset of symptoms. Emotional Support and Therapeutic listening offered. [45] minutes spent on this encounter with >50% of the time in counseling and coordination of care. - ROS Non Response: due to endotracheal tube, due to mental status
[2020-05-10] MEDS: Vecuronium 10 MG VIAL IV PRN ×4 (12:07→21:38)
[2020-05-10] MEDS: Simvastatin 5 MG TAB PO SCH (20:34)
[2020-05-11] MEDS: Albuterol 200 PUFF (6.7GM INHALER) INH SCH ×4 (00:04→18:48)
[2020-05-11] MEDS: Propofol 1,000 MG/100 ML VIAL IV PRN ×4 (01:12→22:11)
[2020-05-11] MEDS: Vecuronium 10 MG VIAL IV PRN ×4 (01:12→13:25)
[2020-05-11] MEDS: Cefepime 2 GM in Sodium Chloride 0.9% 100 ML IVPB SCH ×3 (01:25→18:38)
[2020-05-11 05:10] LABS: Band 3 % (5-11); Eosinophils 1 % (0-10); Hemoglobin 11.7 g/dL (14.0-18.0); Hypochromia SLIGHT = 6-15 cells (100X) (0-5/hpf); Lymphocytes 4 % (21-51); MDiff Complete? YES; Mean Corpuscular HGB CONC 32.7 g/dL (32.0-36.0); Mean Corpuscular Hemoglobin 31.7 pg (27.0-31.0); Mean Platelet Volume 9.2 fL (7.4-10.4); Monocytes 5 % (0-10); Neutrophil 87 % (42-75); Platelet Count 77 thou/uL (130-400); Platelet Morphology Comment Appears Adequate; RBC Distribution Width 13.1 % (11.5-14.5); Red Blood Cell (RBC) Count 3.68 mill/uL (4.70-6.10); White Blood Cell (WBC) Count 11.9 thou/uL (4.8-10.8)
[2020-05-11 05:11] LABS: Anion Gap 9 mmol/L (10-20); BUN (Urea Nitrogen) 36 mg/dL (8.4-25.7); Calc. Creatinine Clearance 112 mL/min (70-130); Calcium 7.8 mg/dL (7.8-10.44); Carbon Dioxide 31 mmol/L (23-31); Chloride 104 mmol/L (98-107); Glucose 277 mg/dL (83-110); Potassium 5.8 mmol/L (3.5-5.1); Sodium 138 mmol/L (136-145)
[2020-05-11] MEDS: Fondaparinux Sodium 2.5 MG/0.5 ML SYRINGE SC SCH (05:25)
[2020-05-11] MEDS: HumaLOG 300 UNITS/3 ML VIAL SC PRN ×4 (05:51→21:16)
[2020-05-11] MEDS: Mometasone 200 MCG/Formoterol 5 MCG 120 PUFF INHALER INH SCH ×2 (06:56→18:48)
--- NOTE | 2020-05-11 07:04 | PDOC.FM ---
- Subjective Subjective: cxr this AM showed a pneumomedistinum that developed. ABG: ph 7.2, CO2 78, O2 89 and bicarb 30 vent setting: RR 30, Peep 13, FIO2 60 MAP 70's. K 5.8 this AM - Objective MAR Reviewed: Yes Vital Signs & Weight: Vital Signs (12 hours) Temp Pulse Resp BP Pulse Ox 05/11/20 06:54 91 98/63 05/11/20 06:00 30 H 05/11/20 04:00 98.3 F 34 H 05/11/20 02:12 101 H 89/55 L 05/11/20 02:00 30 H 05/11/20 00:04 112 H 89/55 L 05/11/20 00:00 32 H 05/10/20 22:33 117 H 05/10/20 22:00 30 H 05/10/20 20:00 98.6 F 34 H 95 05/10/20 19:02 119 H Weight Admit Weight 89.358 kg Weight 87.7 kg Most Recent Monitor Data Heart Rate from ECG 91 NIBP 100/56 NIBP BP-Mean 70 Respiration from ECG 21 SpO2 100 I&O: 05/10/20 05/11/20 05/12/20 06:59 06:59 06:59 Intake Total 2132 1769.2 Output Total 1290 1537 Balance 842 232.2 Result Diagrams: 05/11/20 04:40 05/11/20 04:40 Radiology Reviewed by me: Yes (pneumomedistinum ) Phys Exam - Physical Examination intubated, lying prone, sedated HEENT: moist MMs Neck: supple inspiratory and expiratory rales Cardiovascular: RRR, no significant murmur Gastrointestinal: positive bowel sounds Musculoskeletal: pulses present, edema present (pedal pitting edema bilaterally ) sedated and intubated Skin: no rash Dx/Plan (1) Acute respiratory failure with hypoxia Code(s): J96.01 - ACUTE RESPIRATORY FAILURE WITH HYPOXIA Status: Acute (2) Pneumonia due to COVID-19 virus Code(s): U07.1 - COVID-19; J12.89 - OTHER VIRAL PNEUMONIA Status: Acute (3) HLD (hyperlipidemia) Code(s): E78.5 - HYPERLIPIDEMIA, UNSPECIFIED Status: Acute (4) Diabetes mellitus type 2 in obese Code(s): E11.69 - TYPE 2 DIABETES MELLITUS WITH OTHER SPECIFIED COMPLICATION; E66.9 - OBESITY, UNSPECIFIED Status: Acute - Plan Plan: #Acute Hypoxic Resp failure 2/ COVID PNA (+ on 04/22) - Patient's steroids increased to 40mg methylprednisolone Q6H 04/25, decreased to BID 05/05, Albuterol PRN - Received Conv plasma and started remdesivir 04/24. ID consulted. - Pulm consulted. Rec conv plasma, remdesivir, added doxycycline 04/25-05/05. on Cefepime currently. - Patient intubated 05/05 due to respiratory fatigue; tolerated the procedure well - Started cefepime and vanc on 05/06 for possible HAP. D.c vanc on 04/30 due to neg blood cxc. - Started tube feeds 05/07 @ 22 - Dietary consulted to assist with nutritional needs - Lovenox d/c'd on 05/09 and switched to Fondparinox due to severe thrombocytopenia. - IV protonix for stress ulcer prevention - Daily discussions with family; family updated before and after intubation 05/05, agreeable with the plan of care - CXR worsened on 05/09, slightly improved on 05/10. Shows pneumomediastinum 05/11. - will Prone for 18 hr of day, supine for other 6 hr. for X3 days (05/10), per Dr. Sunitha dominguez. - Family meeting from 05/10: code status remains full code, continue supportive care with vent and revisit goals of care in a couple of days. #Thrombocytopenia -patients platelets dropped from 126>76>62, and again to 56 on 05/09, --> 77 on 05/11 - D/C's lovenox and started fondaparinox due to side effect profile not causing as much thrombocytopenia. - Check anti-Xa levels @ 10 AM today and trough tomorrow, as therapeutic range levels c/w enoxaparin #Hyperkalemia - K 5.8, gave amp D50 and 10 units IV insulin. - trend daily #UTI-improved -urine 05/06 demonstrated 250LE, 1+ bacteria. urine ccx: yeast 25-50k. -patient's WBC increased over the course of the last several days; procal i ncreased -patient started on vancomycin and cefepime 05/06 for concern for hospital acquired pna. Vand d/c'd 05/10. #Concern for hospital acquired pna -procal increased, wbc increased, patient required intubation -started on vancomycin and cefepime 05/06. Vanc D/c'd on 05/10. #DM Type 2 - Hold home meds - Hypoglycemia protocol - ACHS glucose checks - Lantus added to regimen 04/27 as blood glucose elevated, likely 2/2 steroids #HTN - holding home meds, Valsartan due to lower bp's #HLD - Continue home meds DVTppx: Fondaparinox 5 mg SC daily Diet: Tube feeds @ 22ml/hr PCP: Melvin Code status: Full, per family care goal meeting 05/10 with palliative care team. Addendum - Attending - Attending Attestation Date/Time: 05/11/20 1251 I personally evaluated the patient and discussed the management with Dr. Aiken. I agree with the History, Examination, Assessment and Plan documented above with any addition or exceptions noted below. He has worsening respiratory status and ABG with development of a pneumomediasteinum. Continue supportive care but prognosis is guarded. Palliative to discuss with family today. It would be reasonable at this point to transition towards DNR status. awaiting pulm recs.
[2020-05-11] MEDS ORDERED: Furosemide 20 MG/2 ML VIAL SLOW IVP SCH (07:15)
[2020-05-11 07:23] LABS: Actual Bicarbonate (HCO3a) 30.2 mEq/L (22-28); Base Excess (BEa) -0.3 mEq/L (-2.0 to +3.0); Calcium, Ionized (arterial) 1.22 mmol/L (1.12-1.30); Carboxyhemoglobin (COHb) 2.4 gm% (0.0-3.0); O2 Tension (PaO2), arterial 89.5 mmHg (> 70.0); Potassium - ABG Lab 5.26 mmol/L (3.70-5.30)
[2020-05-11 07:26] LABS: CO2 Tension 78.8 mmHg (35.0-45.0); Puncture Site LRA
--- NOTE | 2020-05-11 08:03 | RAD ---
Chest AP view INDICATION: Chest pain COMPARISON: May 10, 2020 FINDINGS: Lungs: Bilateral airspace disease is stable. This is most pronounced in the left lower lobe. Cardiac silhouette: There is been interval development of pneumomediastinum surrounding the heart an d upper mediastinum. Pulmonary vasculature: Normal Pleural spaces: No pleural effusion or pneumothorax is demonstrated. Upper abdomen: No abnormality seen. Osseous structures: No acute osseous abnormality. Additional findings: ET tube and gastric catheter are unchanged. IMPRESSION: 1. Stable bilateral pneumonia. 2. New moderate pneumomediastinum. No pneumothorax identified.
[2020-05-11] MEDS: Lorazepam 2 MG/ML VIAL SLOW IVP PRN ×2 (08:43→13:25)
[2020-05-11] MEDS: Pantoprazole 40 MG VIAL IVP SCH (08:43)
[2020-05-11] MEDS: methylPREDNISolone Sod Succ 40 MG VIAL IVP SCH ×2 (08:43→21:05)
[2020-05-11] MEDS: Valsartan 80 MG TAB PO SCH (09:00)
[2020-05-11] MEDS ORDERED: Dextrose 50% Abboject 50 ML SYRINGE SLOW IVP SCH (10:00)
[2020-05-11] MEDS ORDERED: Insulin Regular 300 UNITS/3 ML VIAL IVP SCH (10:00)
[2020-05-11] MEDS: Insulin Glargine 21 UNITS in Pre-Filled Syringe 1 EACH SC SCH (10:13)
[2020-05-11] MEDS: Calcium Carbonate 600 MG + Vit D TAB PO SCH (10:13)
[2020-05-11] MEDS: Fish Oil 1,000 MG CAP PO SCH (10:13)
[2020-05-11 10:43] LABS: Vancomycin, Random 10.1 ug/mL (See Comment)
[2020-05-11 11:32] LABS: Heparin Anti 10a (LMWH) 0.73 IU/mL
--- NOTE | 2020-05-11 11:39 | PRG ---
DATE OF SERVICE: 05/11/2020 SUBJECTIVE: Clifton Aguilar is a 74-year-old gentleman, intubated in the vent, sedated. X-ray shows a pneumomediastinum today. OBJECTIVE: Temperature is 98, pulse 91, blood pressure 90/63, 60% FiO2, rate of 30, PEEP of 13. CHEST: Decreased breath sounds. No wheezing. No crackles. CARDIAC: Normal S1, S2. No gallops. ABDOMEN: Soft. LABORATORY DATA: White count 11,000, and H and H 11 and 35, platelet count is 77, decreased. PO2 is 89, pCO2 of 70, pH 7.20, rate of 30, PEEP of 13. Lytes are normal. ASSESSMENT: 1. Respiratory failure. 2. Duncan positive pneumonia. 3. Acute respiratory distress syndrome. 4. Pneumomediastinum. 5. Elevated potassium, bag of D50 and insulin is being given today, to decrease the potassium load for another day or two. 6. I am going to continue antibiotics. 7. Continue supportive care, nutrition. 8. Not weanable. One-half hour of critical care time. Job ID: [id number]
--- NOTE | 2020-05-11 12:14 | PDOC.PALPN ---
Palliative Progress Note - Subjective Intubated, mechanical ventilation, sedated. , radiology report indicated pneumomediastinum. - Objective Vital Signs: Vital Signs - Most Recent Temp Pulse Resp BP Pulse Ox 98.3 F 86 30 H 106/65 95 05/11/20 04:00 05/11/20 10:38 05/11/20 06:00 05/11/20 10:38 05/10/20 20:00 - Physical Exam Constitutional: encephalitic, ill appearing HEENT: moist MMs Respiratory: diminished lung sound Deviation from normal: mechanical ventilation Cardiovascular: RRR Gastrointestinal: soft, non-tender Genitourinary: pretty catheter Musculoskeletal: no cyanosis, no clubbing Deviation from normal: sedated Skin: cap refill <2 seconds, fragile Deviation from normal: encephalopathic, sedated. - Assessment (1) Palliative care encounter Code(s): Z51.5 - ENCOUNTER FOR PALLIATIVE CARE Current Visit: Yes Status: Acute (2) Acute respiratory failure with hypoxia Code(s): J96.01 - ACUTE RESPIRATORY FAILURE WITH HYPOXIA Current Visit: Yes Status: Acute (3) Pneumonia due to COVID-19 virus Code(s): U07.1 - COVID-19; J12.89 - OTHER VIRAL PNEUMONIA Current Visit: Yes Status: Acute - Plan Plan: Communicated with Attending physician. Communicated with patient children, Casimiro Hart, cliff Mendoza via phone. Discussed poor prognosis, not currently weanable from vent and need to balance vent settings secondary to onset of pneumomediastinum. Revisited DNAR status. Children understanding of prognosis they are going to communicate with their mom in relation to designating a surrogate decision maker. Mrs Aguilar was able to visit her . She will remain decision maker and has elected to transition to DNAR. She remains hopeful for a recovery, however does not desire further resuscitative measures if indicated. [45] minutes spent on this encounter with >50% of the time in counseling and coordination of care. - ROS Non Response: due to endotracheal tube, due to mental status
[2020-05-11] MEDS: fentaNYL Citrate/PF 2,000 MCG in Sodium Chloride 0.9% 60 ML IV SCH (13:23)
[2020-05-11 14:52] LABS: Unfractionated Heparin 0.6 IU/mL
[2020-05-11] MEDS: Simvastatin 5 MG TAB PO SCH (21:04)
[2020-05-12] MEDS: Albuterol 200 PUFF (6.7GM INHALER) INH SCH ×4 (00:21→18:21)
[2020-05-12] MEDS: Cefepime 2 GM in Sodium Chloride 0.9% 100 ML IVPB SCH ×3 (01:08→18:11)
[2020-05-12] MEDS: HumaLOG 300 UNITS/3 ML VIAL SC PRN ×3 (04:30→22:02)
[2020-05-12 04:49] LABS: D-Dimer Test 1.56 *mcg/mL (0.27-0.43)
[2020-05-12 04:51] LABS: Band 10 % (5-11); Eosinophils 1 % (0-10); Hemoglobin 10.5 g/dL (14.0-18.0); Lymphocytes 5 % (21-51); MDiff Complete? YES; Mean Corpuscular HGB CONC 30.9 g/dL (32.0-36.0); Mean Corpuscular Hemoglobin 29.8 pg (27.0-31.0); Mean Corpuscular Volume 96.4 fL (78.0-98.0); Mean Platelet Volume 9.5 fL (7.4-10.4); Monocytes 2 % (0-10); Myelocyte 1 % (0-0); Neutrophil 81 % (42-75); Platelet Count 72 thou/uL (130-400); Platelet Morphology Comment Appears Decreased; Red Blood Cell (RBC) Count 3.54 mill/uL (4.70-6.10); White Blood Cell (WBC) Count 9.6 thou/uL (4.8-10.8)
[2020-05-12] MEDS: Propofol 1,000 MG/100 ML VIAL IV PRN ×3 (04:58→20:21)
[2020-05-12] MEDS: Fondaparinux Sodium 2.5 MG/0.5 ML SYRINGE SC SCH (04:59)
[2020-05-12 05:01] LABS: Heparin Anti 10a (LMWH) 0.59 IU/mL
[2020-05-12 05:03] LABS: Anion Gap 8 mmol/L (10-20); BUN (Urea Nitrogen) 36 mg/dL (8.4-25.7); Calc. Creatinine Clearance 113 mL/min (70-130); Calcium 7.9 mg/dL (7.8-10.44); Carbon Dioxide 34 mmol/L (23-31); Chloride 103 mmol/L (98-107); Glucose 209 mg/dL (83-110); Potassium 5.3 mmol/L (3.5-5.1); Sodium 140 mmol/L (136-145)
[2020-05-12 05:10] LABS: Unfractionated Heparin 0.48 IU/mL
--- NOTE | 2020-05-12 07:03 | PDOC.FM ---
- Subjective Subjective: blood gas this AM, pO2 53, pH 7.4, pCO2 53, bicarb 28 was prone 18 hours, about to go supine cxr: improved pneumomediastinum, and infiltrates. visited yesterday and transitioned the pts code status to DNR. No acute overnight events. AntiXa levels in therapeutic range - Objective MAR Reviewed: Yes Vital Signs & Weight: Vital Signs (12 hours) Temp Pulse Resp BP Pulse Ox 05/12/20 06:00 32 H 05/12/20 05:00 32 H 05/12/20 04:00 97.8 F 34 H 05/12/20 03:00 31 H 05/12/20 02:23 96 87/52 L 05/12/20 02:00 35 H 05/12/20 00:21 98 140/95 H 05/12/20 00:00 99.6 F 32 H 05/11/20 22:17 95 108/65 05/11/20 22:00 34 H 05/11/20 20:00 33 H 91 L 05/11/20 19:00 98.1 F Weight Admit Weight 89.358 kg Weight 90.1 kg Most Recent Monitor Data Heart Rate from ECG 88 NIBP 123/67 NIBP BP-Mean 85 Respiration from ECG 28 SpO2 99 I&O: 05/10/20 05/11/20 05/12/20 06:59 06:59 06:59 Intake Total 2132 1769.2 1507.8 Output Total 1290 1537 1974 Balance 842 232.2 -466.2 Result Diagrams: 05/12/20 04:30 05/12/20 04:30 Phys Exam - Physical Examination intbated, sedated and lying prone. HEENT: moist MMs Neck: supple Respiratory: no wheezing, clear to auscultation bilateral Cardiovascular: RRR, no significant murmur Gastrointestinal: soft, positive bowel sounds Musculoskeletal: pulses present, edema present (slight pitting pedal edema bilaterally ) intubated and sedated Skin: normal turgor Dx/Plan (1) Acute respiratory failure with hypoxia Code(s): J96.01 - ACUTE RESPIRATORY FAILURE WITH HYPOXIA Status: Acute (2) Pneumonia due to COVID-19 virus Code(s): U07.1 - COVID-19; J12.89 - OTHER VIRAL PNEUMONIA Status: Acute (3) HLD (hyperlipidemia) Code(s): E78.5 - HYPERLIPIDEMIA, UNSPECIFIED Status: Acute (4) Diabetes mellitus type 2 in obese Code(s): E11.69 - TYPE 2 DIABETES MELLITUS WITH OTHER SPECIFIED COMPLICATION; E66.9 - OBESITY, UNSPECIFIED Status: Acute - Plan Plan: #Acute Hypoxic Resp failure / COVID PNA (+ on 04/22) - Patient's steroids increased to 40mg methylprednisolone Q6H 04/25, decreased to BID 05/05, Albuterol PRN - Received Conv plasma and started remdesivir 04/24. ID consulted. - Pulm consulted. Rec conv plasma, remdesivir, added doxycycline 04/25-05/05. on Cefepime currently. - Patient intubated 05/05 due to respiratory fatigue; tolerated the procedure well - Started cefepime and vanc on 05/06 for possible HAP. D.c vanc on 04/30 due to neg blood cxc. - Started tube feeds 05/07 @ 22 - Dietary consulted to assist with nutritional needs - Lovenox d/c'd on 05/09 and switched to Fondaparinox due to severe thrombocytopenia. Anti Xa levels in therapeutic range of enoxaparin and many studies show similarities in anti Xa levels. - IV protonix for stress ulcer prevention - Daily discussions with family; family updated before and after intubation 05/05, agreeable with the plan of care. DNR status since 05/11, per . - CXR worsened on 05/09, slightly improved on 05/10. Shows pneumomediastinum 05/11. improving infiltrates and pneumomedistinum on 05/12. - will Prone for 18 hr of day, supine for other 6 hr. for X3 days (05/10), per Dr. Sunitha dominguez. - precautions d/c'd 05/12. Added vitamin D per tube. #Thrombocytopenia -patients platelets dropped from 126>76>62, and again to 56 on 05/09, --> 77 on 05/11, 72 on 05/12. - D/C'd lovenox and started fondaparinox due to side effect profile not causing as much thrombocytopenia. - anti X a levels in therapeutic range. continue current dose 5 mg SC daily fundaparinox and monitor renal function. #Hyperkalemia - K 5.8, gave amp D50 and 10 units IV insulin on 05/11. - 5.3 on 05/12. - trend daily. #UTI-improved -urine 05/06 demonstrated 250LE, 1+ bacteria. urine ccx: yeast 25-50k. -patient's WBC increased over the course of the last several days; procal increased -patient started on vancomycin and cefepime 05/06 for concern for hospital acquired pna. Vand d/c'd 05/10. #Concern for hospital acquired pna -procal increased, wbc increased, patient required intubation -started on vancomycin and cefepime 05/06. Vanc D/c'd on 05/10. #DM Type 2 - Hold home meds - Hypoglycemia protocol - ACHS glucose checks - Lantus added to regimen 04/27 as blood glucose elevated, likely 2/2 steroids #HTN - holding home meds, Valsartan due to lower bp's #HLD - Continue home meds DVTppx: Fondaparinox 5 mg SC daily Diet: Tube feeds @ 22ml/hr PCP: Melvin Code status: DNR, per with care goal meeting 05/11 with palliative care team. Addendum - Attending - Attending Attestation Date/Time: 05/12/20 1219 I personally evaluated the patient and discussed the management with Dr. Aiken. I agree with the History, Examination, Assessment and Plan documented above with any addition or exceptions noted below. Continue proning. He appears to have stabilized for now. salvage determiner prognosis is still guarded. Now DNR.
[2020-05-12 07:24] LABS: Actual Bicarbonate (HCO3a) 28.7 mEq/L (22-28); Base Excess (BEa) 3.3 mEq/L (-2.0 to +3.0); CO2 Tension 46.8 mmHg (35.0-45.0); Calcium, Ionized (arterial) 1.18 mmol/L (1.12-1.30); Carboxyhemoglobin (COHb) 2.5 gm% (0.0-3.0); Hemoglobin (Hb) 13.5 g/dL (14.0-18.0); Potassium - ABG Lab 4.63 mmol/L (3.70-5.30); pH, Arterial 7.41 (7.35-7.45)
[2020-05-12 07:26] LABS: O2 Tension (PaO2), arterial 53.2 mmHg (> 70.0); Puncture Site LRA
--- NOTE | 2020-05-12 08:29 | RAD ---
EXAM: Portable chest PROVIDED CLINICAL HISTORY: Respiratory insufficiency COMPARISON: 05/11/2020 FINDINGS: Significant interval change with respect to the prior examination is not apparent. Evaluation for ple ural fluid or pneumothorax is limited given the chronic nature of the study. IMPRESSION: As above.
[2020-05-12] MEDS: Fish Oil 1,000 MG CAP PO SCH (08:47)
[2020-05-12] MEDS: fentaNYL Citrate/PF 2,000 MCG in Sodium Chloride 0.9% 60 ML IV SCH ×2 (08:47→23:23)
[2020-05-12] MEDS: Calcium Carbonate 600 MG + Vit D TAB PO SCH (08:47)
[2020-05-12] MEDS: Insulin Glargine 21 UNITS in Pre-Filled Syringe 1 EACH SC SCH (08:47)
[2020-05-12] MEDS: Pantoprazole 40 MG VIAL IVP SCH (08:48)
[2020-05-12] MEDS: methylPREDNISolone Sod Succ 40 MG VIAL IVP SCH ×2 (08:48→20:30)
[2020-05-12] MEDS: Mometasone 200 MCG/Formoterol 5 MCG 120 PUFF INHALER INH SCH ×2 (08:56→18:21)
--- NOTE | 2020-05-12 09:13 | PRG ---
DATE OF SERVICE: 05/12/2020 SUBJECTIVE: Clifton Aguilar is a 74-year-old gentleman, intubated on the vent. He has been 3 days proned. His x-ray looks stable. No more pneumomediastinum today. OBJECTIVE: VITAL SIGNS: His maximum temperature was 97.8, pulse 85, blood pressure 145/88, 60% FiO2, sats are 90% to 93%, respirations 30. I's and O's have been good. CHEST: No wheezing. No crackles. CARDIAC: Normal S1, S2. No gallops. ABDOMEN: No masses. ASSESSMENT: Duncan positive pneumonia, respiratory failure, acute respiratory distress syndrome, mild azotemia. PLAN: Continue supportive care, antibiotics, steroids. We will continue to follow. One-half hour of critical time. Job ID: [id number]
[2020-05-12] MEDS: Cholecalciferol (Vitamin D3) 400 UNITS TAB PO SCH (09:44)
[2020-05-12] MEDS ORDERED: Vecuronium 10 MG VIAL IVP SCH (11:00)
[2020-05-12] MEDS ORDERED: Vecuronium 10 MG VIAL ONE (11:17)
[2020-05-12] MEDS: Lorazepam 2 MG/ML VIAL SLOW IVP PRN (11:19)
[2020-05-12] MEDS ORDERED: Norepinephrine 8 MG/0.9% NS 250 ML IVPB SCH (14:15)
[2020-05-12] MEDS ORDERED: Norepinephrine 8 MG in Dextrose 5% in Water 242 ML IVPB PRN (14:15)
--- NOTE | 2020-05-12 14:44 | PDOC.BPN ---
- Brief Progress Note Was called by the nurse ~1400 for hypotension once pt was turned supine. in room visiting and pt was requiring more sedation after becoming tachycardic. Nurse states she believes the hypotension is from increase in sedation needs of both propofol and fentanyl Went to evaluate the pt BP 60's/low 50's HR 90's decreased breath sounds auscultated over Left chest. ordered stat chest x-ray with suspicion for pneumothorax. will start levophed at low dose in meantime. Attending physician Dr. Jackson aware and agrees to above stated plan. Dr. Jackson states he is going to evaluate the pt as well.
--- NOTE | 2020-05-12 14:48 | RAD ---
CHEST 1 VIEW: Date: 05/12/2020 HISTORY: Hypotension. COMPARISON: Radiograph same date. FINDINGS: The patient is intubated with endotracheal tube tip at the clavicular level. Enteric tube tip below d iaphragm, although out of field of view. Left basilar opacity is present. Small effusions. IMPRESSION: Similar examination of the chest. Concern for left lower lobe pneumonia and small effusions. POS: AH
[2020-05-12] MEDS: Simvastatin 5 MG TAB PO SCH (20:30)
[2020-05-13] MEDS: Albuterol 200 PUFF (6.7GM INHALER) INH SCH ×4 (00:03→18:54)
[2020-05-13] MEDS: Lorazepam 2 MG/ML VIAL SLOW IVP PRN (00:26)
[2020-05-13] MEDS: Propofol 1,000 MG/100 ML VIAL IV PRN ×4 (01:04→23:02)
[2020-05-13] MEDS: Cefepime 2 GM in Sodium Chloride 0.9% 100 ML IVPB SCH ×3 (01:05→17:31)
[2020-05-13 05:42] LABS: Anion Gap 12 mmol/L (10-20); BUN (Urea Nitrogen) 29 mg/dL (8.4-25.7); Calc. Creatinine Clearance 118 mL/min (70-130); Calcium 8.1 mg/dL (7.8-10.44); Carbon Dioxide 33 mmol/L (23-31); Chloride 100 mmol/L (98-107); Glucose 246 mg/dL (83-110); Potassium 4.8 mmol/L (3.5-5.1); Sodium 140 mmol/L (136-145)
[2020-05-13] MEDS: HumaLOG 300 UNITS/3 ML VIAL SC PRN ×2 (05:50→17:31)
[2020-05-13 05:51] LABS: Band 20 % (5-11); Basophilic Stippling SLIGHT = 1-2 cells (100X) (None Seen); Eosinophils 2 % (0-10); Hemoglobin 11.4 g/dL (14.0-18.0); Lymphocytes 3 % (21-51); MDiff Complete? YES; Mean Corpuscular HGB CONC 32.4 g/dL (32.0-36.0); Mean Corpuscular Hemoglobin 30.9 pg (27.0-31.0); Mean Corpuscular Volume 95.3 fL (78.0-98.0); Mean Platelet Volume 9.2 fL (7.4-10.4); Metamyelocyte 2 % (0-0); Monocytes 2 % (0-10); Neutrophil 71 % (42-75); Platelet Count 113 thou/uL (130-400); Platelet Morphology Comment Appears Decreased; RBC Distribution Width 13.1 % (11.5-14.5); Red Blood Cell (RBC) Count 3.68 mill/uL (4.70-6.10); White Blood Cell (WBC) Count 16.7 thou/uL (4.8-10.8)
[2020-05-13] MEDS: Fondaparinux Sodium 2.5 MG/0.5 ML SYRINGE SC SCH (05:51)
--- NOTE | 2020-05-13 07:01 | PDOC.FM ---
- Subjective Subjective: no overnight events per nurse levophed @ 2.5, MAP in 80's - Objective Vital Signs & Weight: Vital Signs (12 hours) Temp Pulse Resp BP Pulse Ox 05/13/20 06:00 32 H 05/13/20 05:00 97.0 F L 27 H 05/13/20 04:00 31 H 05/13/20 02:11 72 169/85 H 05/13/20 02:00 97.3 F L 34 H 05/13/20 01:00 36 H 05/13/20 00:05 83 134/83 05/13/20 00:00 32 H 05/12/20 22:02 71 102/68 05/12/20 22:00 32 H 05/12/20 21:00 38 H 05/12/20 20:00 34 H 100 Weight Admit Weight 89.358 kg Weight 88.9 kg Most Recent Monitor Data Heart Rate from ECG 73 NIBP 118/67 NIBP BP-Mean 84 Respiration from ECG 21 SpO2 98 I&O: 05/12/20 05/13/20 05/14/20 06:59 06:59 06:59 Intake Total 1507.8 2332.1 Output Total 1974 2890 Balance -466.2 -557.9 Result Diagrams: 05/13/20 05:00 05/13/20 05:00 Additional Labs: Laboratory Tests 05/13/20 07:34 Bicarbonate Actual 33.5 H ABG pH 7.38 ABG pCO2 58.4 H ABG pO2 53.7 L* Radiology Reviewed by me: Yes (stable bilateral infiltrates. no pneumothorax ) Phys Exam - Physical Examination intubated, sedated, lying supine. dry MM Neck: supple coarse rhonchi auscultated throughout. Cardiovascular: RRR, no significant murmur Gastrointestinal: soft, no distention, positive bowel sounds Musculoskeletal: pulses present, edema present Deviation from normal: see wound care photos, small sounds on nose, and glans penis. Dx/Plan (1) Acute respiratory failure with hypoxia Code(s): J96.01 - ACUTE RESPIRATORY FAILURE WITH HYPOXIA Status: Acute (2) Pneumonia due to COVID-19 virus Code(s): U07.1 - COVID-19; J12.89 - OTHER VIRAL PNEUMONIA Status: Acute (3) HLD (hyperlipidemia) Code(s): E78.5 - HYPERLIPIDEMIA, UNSPECIFIED Status: Acute (4) Diabetes mellitus type 2 in obese Code(s): E11.69 - TYPE 2 DIABETES MELLITUS WITH OTHER SPECIFIED COMPLICATION; E66.9 - OBESITY, UNSPECIFIED Status: Acute - Plan Plan: #Acute Hypoxic Resp failure / COVID PNA (+ on 04/22) #Sepsis - Patient's steroids increased to 40mg methylprednisolone Q6H 04/25, decreased to BID 05/05, Albuterol PRN - Received Conv plasma and started remdesivir 04/24. ID consulted. - Pulm consulted. Rec conv plasma, remdesivir, added doxycycline 04/25-05/05. on Cefepime currently. - Patient intubated 05/05 due to respiratory fatigue; tolerated the procedure well - Started cefepime and vanc on 05/06 for possible HAP. D/c vanc on 04/30 due to neg blood cxc. - Started tube feeds 05/07 @ 22 - Dietary consulted to assist with nutritional needs - Lovenox d/c'd on 05/09 and switched to Fondaparinox due to severe thrombocytopenia. Anti Xa levels in therapeutic range of enoxaparin and many studies show similarities in anti Xa levels. - IV protonix for stress ulcer prevention - Daily discussions with family; family updated before and after intubation 05/05, agreeable with the plan of care. DNR status since 05/11, per . - CXR worsened on 05/09, slightly improved on 05/10. Shows pneumomediastinum 05/11. improving infiltrates and pneumomedistinum on 05/12. Stable infiltrates on 05/13. - Prone for 18 hr of day, supine for other 6 hr. for X3 days (05/10), per Dr. Sunitha dominguez. Tolerated 2 days, will hold due to lower BP's today. - precautions d/c'd 05/12. Added vitamin D per tube. - Low BP on 05/12, levophed ggt started @ 2.5. Pt responded well and MAP's 80's. Added albumin this morning. #Concern for hospital acquired pna -procal increased, wbc increased, patient required intubation -started on vancomycin and cefepime 05/06. Vanc D/c'd on 05/10. - REpeat procal on 05/13 due to increased WBC. will trend. if elevated with setting of hypotension will discuss starting merepenam. #Thrombocytopenia, improving -patients platelets dropped from 126>76>62, and again to 56 on 05/09, --> 77 on 05/11, 72 on 05/12. 113 on 05/13. - D/C'd lovenox and started fondaparinox due to side effect profile not causing as much thrombocytopenia. - anti X a levels in therapeutic range. continue current dose 5 mg SC daily fundaparinox and monitor renal function. #Hyperkalemia, improved - K 5.8, gave amp D50 and 10 units IV insulin on 05/11. - 5.3 on 05/12. 4.8 on 05/13 - trend daily. #UTI-improved -urine 05/06 demonstrated 250LE, 1+ bacteria. urine ccx: yeast 25-50k. -patient's WBC increased over the course of the last several days; procal increased -patient started on vancomycin and cefepime 05/06 for concern for hospital acquired pna. Vand d/c'd 05/10. #DM Type 2 - Hold home meds - Hypoglycemia protocol - ACHS glucose checks - Lantus added to regimen 04/27 as blood glucose elevated, likely 2/2 steroids #HTN - holding home meds, Valsartan due to lower bp's #HLD - Continue home meds DVTppx: Fondaparinox 5 mg SC daily Pressor support: levophed, trying to wean. Diet: Tube feeds @ 22ml/hr PCP: Melvin Code status: DNR, per with care goal meeting 05/11 with palliative care team. Addendum - Attending - Attending Attestation Date/Time: 05/13/20 1240 I personally evaluated the patient and discussed the management with Dr. Aiken. I agree with the History, Examination, Assessment and Plan documented above with any addition or exceptions noted below. Albumin per pulm. titrating levophed. He is stable overnight but prognosis is still guarded.
[2020-05-13] MEDS: Mometasone 200 MCG/Formoterol 5 MCG 120 PUFF INHALER INH SCH ×2 (07:32→18:54)
[2020-05-13 08:14] LABS: Actual Bicarbonate (HCO3a) 33.5 mEq/L (22-28); Base Excess (BEa) 6.8 mEq/L (-2.0 to +3.0); CO2 Tension 58.4 mmHg (35.0-45.0); Calcium, Ionized (arterial) 1.12 mmol/L (1.12-1.30); Carboxyhemoglobin (COHb) 2.4 gm% (0.0-3.0); Hemoglobin (Hb) 11.6 g/dL (14.0-18.0); Potassium - ABG Lab 4.36 mmol/L (3.70-5.30); pH, Arterial 7.38 (7.35-7.45)
[2020-05-13 08:20] LABS: O2 Tension (PaO2), arterial 53.7 mmHg (> 70.0)
[2020-05-13] MEDS: methylPREDNISolone Sod Succ 40 MG VIAL IVP SCH ×2 (08:20→19:36)
[2020-05-13 08:21] LABS: Puncture Site RRA
[2020-05-13] MEDS: Fish Oil 1,000 MG CAP PO SCH (08:21)
[2020-05-13] MEDS: Insulin Glargine 21 UNITS in Pre-Filled Syringe 1 EACH SC SCH (08:21)
[2020-05-13] MEDS: Calcium Carbonate 600 MG + Vit D TAB PO SCH (08:21)
[2020-05-13] MEDS: Pantoprazole 40 MG VIAL IVP SCH (08:22)
[2020-05-13] MEDS: Cholecalciferol (Vitamin D3) 400 UNITS TAB PO SCH (08:23)
--- NOTE | 2020-05-13 08:46 | RAD ---
PORTABLE CHEST: HISTORY: CCU followup on ventilator. COMPARISON: 05/12/2020. FINDINGS/IMPRESSION: ET tube and NG tube unchanged. Bilateral effusions. Hazy infiltrate in the left mid to lower lung a ppears stable. No significant interval change noted. POS: OFF
[2020-05-13] MEDS ORDERED: Albumin 25% 25 GM/100 ML BOT IVPB SCH (09:52)
--- NOTE | 2020-05-13 10:10 | PRG ---
DATE OF SERVICE: 05/13/2020 SUBJECTIVE: Clifton Aguilar is a 74-year-old gentleman, remains intubated in the vent, sedated. He was proned for 3 days. X-ray still shows diffuse infiltrates. OBJECTIVE: VITAL SIGNS: Pulse 68, blood pressure 113/70, saturations are 91% on bilevel, respiratory rate 18. His I's and O's consistently even. CHEST: No wheezing. No crackles. CARDIAC: Normal S1 and S2. No gallops. ABDOMEN: No masses. LABORATORY DATA: White count 16,000, hemoglobin and hematocrit 11 and 35, platelet count 113. PO2 of 53, pCO2 of 50, pH 7.38. ASSESSMENT: Respiratory failure, juan positive pneumonia, day #19 on the vent. PLAN: He is clearly not weanable. We are going to give him some albumin to improve his blood pressure. Hopefully, we can get him off his Levophed. Continue antibiotics, supportive care. Continue steroids. Long-term prognosis is grave. He has remained DNR. One-half hour of critical time. Job ID: [id number]
[2020-05-13] MEDS: fentaNYL Citrate/PF 2,000 MCG in Sodium Chloride 0.9% 60 ML IV SCH (13:10)
[2020-05-13] MEDS: Simvastatin 5 MG TAB PO SCH (19:36)
[2020-05-14] MEDS: Lorazepam 2 MG/ML VIAL SLOW IVP PRN ×3 (00:46→18:25)
[2020-05-14] MEDS: Albuterol 200 PUFF (6.7GM INHALER) INH SCH ×4 (01:06→19:17)
[2020-05-14] MEDS: Cefepime 2 GM in Sodium Chloride 0.9% 100 ML IVPB SCH ×3 (01:08→18:20)
[2020-05-14] MEDS: fentaNYL Citrate/PF 2,000 MCG in Sodium Chloride 0.9% 60 ML IV SCH ×2 (02:35→16:21)
[2020-05-14] MEDS: Propofol 1,000 MG/100 ML VIAL IV PRN ×2 (04:48→19:26)
[2020-05-14 04:53] LABS: Band 10 % (5-11); Eosinophils 1 % (0-10); Hemoglobin 10.1 g/dL (14.0-18.0); Lymphocytes 4 % (21-51); MDiff Complete? YES; Mean Corpuscular HGB CONC 33.4 g/dL (32.0-36.0); Mean Corpuscular Volume 95.9 fL (78.0-98.0); Mean Platelet Volume 9.7 fL (7.4-10.4); Monocytes 1 % (0-10); Neutrophil 84 % (42-75); Platelet Count 62 thou/uL (130-400); Platelet Morphology Comment Appears Decreased; RBC Distribution Width 13.4 % (11.5-14.5); Red Blood Cell (RBC) Count 3.14 mill/uL (4.70-6.10); White Blood Cell (WBC) Count 7.2 thou/uL (4.8-10.8)
[2020-05-14 05:08] LABS: Anion Gap 14 mmol/L (10-20); BUN (Urea Nitrogen) 26 mg/dL (8.4-25.7); Calc. Creatinine Clearance 129 mL/min (70-130); Calcium 8.2 mg/dL (7.8-10.44); Carbon Dioxide 32 mmol/L (23-31); Chloride 99 mmol/L (98-107); Glucose 183 mg/dL (83-110); Potassium 4.6 mmol/L (3.5-5.1); Sodium 140 mmol/L (136-145)
[2020-05-14] MEDS: Fondaparinux Sodium 2.5 MG/0.5 ML SYRINGE SC SCH (05:21)
[2020-05-14] MEDS: HumaLOG 300 UNITS/3 ML VIAL SC PRN (05:28)
[2020-05-14] MEDS: Mometasone 200 MCG/Formoterol 5 MCG 120 PUFF INHALER INH SCH ×2 (08:05→19:19)
[2020-05-14] MEDS: Pantoprazole 40 MG VIAL IVP SCH (08:07)
[2020-05-14] MEDS: methylPREDNISolone Sod Succ 40 MG VIAL IVP SCH ×2 (08:07→21:11)
[2020-05-14] MEDS: Calcium Carbonate 600 MG + Vit D TAB PO SCH (08:08)
[2020-05-14] MEDS: Cholecalciferol (Vitamin D3) 400 UNITS TAB PO SCH (08:08)
[2020-05-14] MEDS: Insulin Glargine 25 UNITS in Pre-Filled Syringe 1 EACH SC SCH (08:08)
[2020-05-14] MEDS: Fish Oil 1,000 MG CAP PO SCH (08:08)
[2020-05-14 08:21] LABS: Actual Bicarbonate (HCO3a) 33.2 mEq/L (22-28); CO2 Tension 55.5 mmHg (35.0-45.0); Calcium, Ionized (arterial) 1.16 mmol/L (1.12-1.30); Carboxyhemoglobin (COHb) 2.5 gm% (0.0-3.0); Hemoglobin (Hb) 11.5 g/dL (14.0-18.0); Potassium - ABG Lab 4.48 mmol/L (3.70-5.30)
[2020-05-14 08:29] LABS: O2 Tension (PaO2), arterial 48.9 mmHg (> 70.0)
[2020-05-14 08:30] LABS: ALV-art Gradient 309.525 mmHg (0-20); Puncture Site RRA
--- NOTE | 2020-05-14 08:52 | RAD ---
Chest one view HISTORY: Dyspnea. Follow-up. COMPARISON: 05/13/2020. FINDINGS: Cardiac silhouette is magnified by projection. Pulmonary vasculature remains engorged and a ccentuated by shallow inspiration. Mediastinum is midline. Lines and tubes unchanged in position. Widespread reticulonodular interstitial prominence and groundglass hazy opacity similar in appearance to the prior study. Density at the left base has increased. Left hemidiaphragm now more obscured. No evidence of pneumothorax. IMPRESSION : Increasing consolidation of left basilar infiltrate. Widespread groundglass infiltrate and other findings are otherwise stable.
--- NOTE | 2020-05-14 10:14 | PDOC.FM ---
- Subjective Subjective: intubated and sedated levophed turned back on overnight to 2 mc/min BP's stable, MAP's 60-70's - Objective Vital Signs & Weight: Vital Signs (12 hours) Temp Pulse Resp BP Pulse Ox 05/14/20 10:00 33 H 05/14/20 08:05 87 103/64 05/14/20 08:00 98.5 F 33 H 05/14/20 07:11 95 05/14/20 06:00 27 H 05/14/20 04:15 94 88/56 L 05/14/20 04:00 99.6 F 35 H 05/14/20 02:00 33 H 05/14/20 01:08 95 103/61 05/14/20 00:00 98.8 F 31 H 05/13/20 22:39 79 99/58 L Weight Admit Weight 89.358 kg Weight 88.451 kg Most Recent Monitor Data Heart Rate from ECG 85 NIBP 108/61 NIBP BP-Mean 76 Respiration from ECG 20 SpO2 93 I&O: 05/13/20 05/14/20 05/15/20 06:59 06:59 06:59 Intake Total 2332.1 1605 50 Output Total 2890 2270 270 Balance -557.9 -665 -220 Result Diagrams: 05/14/20 04:26 05/14/20 04:26 Additional Labs: Laboratory Tests 05/13/20 05/13/20 05/13/20 11:12 16:33 21:00 Bicarbonate Actual ABG pH ABG pCO2 ABG pO2 POC Glucose 150 H 202 H 109 H Procalcitonin 05/14/20 05/14/20 05/14/20 04:26 08:06 09:43 Bicarbonate Actual 33.2 H ABG pH 7.40 ABG pCO2 55.5 H ABG pO2 48.9 L* POC Glucose 138 H Procalcitonin 0.11 Phys Exam - Physical Examination intubated and sedated, lying supine HEENT: moist MMs Neck: supple Respiratory: no wheezing coarse crackles Cardiovascular: RRR, no significant murmur, no rub Gastrointestinal: soft, no distention, positive bowel sounds Musculoskeletal: pulses present, edema present (trace pedal edema ) Skin: normal turgor Dx/Plan (1) Acute respiratory failure with hypoxia Code(s): J96.01 - ACUTE RESPIRATORY FAILURE WITH HYPOXIA Status: Acute (2) Pneumonia due to COVID-19 virus Code(s): U07.1 - COVID-19; J12.89 - OTHER VIRAL PNEUMONIA Status: Acute (3) HLD (hyperlipidemia) Code(s): E78.5 - HYPERLIPIDEMIA, UNSPECIFIED Status: Acute (4) Diabetes mellitus type 2 in obese Code(s): E11.69 - TYPE 2 DIABETES MELLITUS WITH OTHER SPECIFIED COMPLICATION; E66.9 - OBESITY, UNSPECIFIED Status: Acute - Plan Plan: #Acute Hypoxic Resp failure / COVID PNA (+ on 04/22) #Sepsis - Patient's steroids increased to 40mg methylprednisolone Q6H 04/25, decreased to BID 05/05, Albuterol PRN - Received Conv plasma and started remdesivir 04/24. ID consulted. - Pulm consulted. Rec conv plasma, remdesivir, added doxycycline 04/25-05/05. on Cefepime currently. - Patient intubated 05/05 due to respiratory fatigue; tolerated the procedure well - Started cefepime and vanc on 05/06 for possible HAP. D/c vanc on 04/30 due to neg blood cxc. - Started tube feeds 05/07 @ 22 - Dietary consulted to assist with nutritional needs - Lovenox d/c'd on 05/09 and switched to Fondaparinox due to severe thr ombocytopenia. Anti Xa levels in therapeutic range of enoxaparin and many studies show similarities in anti Xa levels. - IV protonix for stress ulcer prevention - Daily discussions with family; family updated before and after intubation 05/05, agreeable with the plan of care. DNR status since 05/11, per . - CXR worsened on 05/09, slightly improved on 05/10. Shows pneumomediastinum 05/11. improving infiltrates and pneumomedistinum on 05/12. Stable infiltrates on 05/13. Worsening LLL infiltrates on 05/14. - Prone for 18 hr of day, supine for other 6 hr. for X2 days (05/10), per Dr. Sunitha dominguez. Tolerated 2 days, no proning due to lower BP's at this time. - precautions d/c'd 05/12. Added vitamin D per tube. - Low BP on 05/12, levophed ggt @ 2 mcg/min. MAPS 60-70's. Pt responded well and MAP's 60-70's. Added albumin 05/13. will titrate down. #Concern for hospital acquired pna -procal increased, wbc increased, patient required intubation -started on vancomycin and cefepime 05/06. Vanc D/c'd on 05/10. - Repeat procal on 05/13 not increased, low at 0.11. will trend. if elevated with setting of hypotension will discuss starting merepenam. likely not wros ening bacterial pna. #Thrombocytopenia, improving -patients platelets dropped from 126>76>62, and again to 56 on 05/09, --> 77 on 05/11, 72 on 05/12. 113 on 05/13. 62 on 05/14. - D/C'd lovenox and started fondaparinox due to side effect profile not causing as much thrombocytopenia. - anti X a levels in therapeutic range. continue current dose 5 mg SC daily fundaparinox and monitor renal function. #Hyperkalemia, improved - K 5.8, gave amp D50 and 10 units IV insulin on 05/11. - 5.3 on 05/12. 4.8 on 05/13. 4.6 on 05/14. - trend daily. #UTI-improved -urine 05/06 demonstrated 250LE, 1+ bacteria. urine ccx: yeast 25-50k. -patient's WBC increased over the course of the last several days; procal increased -patient started on vancomycin and cefepime 05/06 for concern for hospital acquired pna. Vand d/c'd 05/10. #DM Type 2 - Hold home meds - Hypoglycemia protocol - ACHS glucose checks - Lantus added to regimen 04/27 as blood glucose elevated, likely 2/2 steroids #HTN - holding home meds, Valsartan due to lower bp's #HLD - Continue home meds DVTppx: Fondaparinox 5 mg SC daily Pressor support: levophed, trying to wean. Diet: Tube feeds @ 22ml/hr PCP: Melvin Code status: DNR, per with care goal meeting 05/11 with palliative care team. Addendum - Attending - Attending Attestation Date/Time: 05/14/20 9494 I personally evaluated the patient and discussed the management with Dr. Aiken. I agree with the History, Examination, Assessment and Plan documented above with any addition or exceptions noted below. Patient remains intubated and sedated. Pt went off levophed yesterday but propofol was increased overnight and pt restarted levophed. Continue supportive care. Vent mgmt per pulm.
--- NOTE | 2020-05-14 10:39 | PRG ---
DATE OF SERVICE: 05/14/2020 SUBJECTIVE: This morning, the patient is intubated on the vent, unresponsive. He was hypotensive last night and was restarted on Levophed. OBJECTIVE: VITAL SIGNS: Reveal pulse 88, blood pressure 108/88, saturations are 93%, respiratory rate 19. He is in a bilevel. CHEST: Bilateral rhonchi and crackles. CARDIAC: Normal S1 and S2. No gallops. ABDOMEN: No masses. ASSESSMENT: 1. Status post pneumomediastinum. 2. Respiratory failure, juan positive pneumonia. 3. Hypertension. PLAN: He has made a DNR. We will go ahead and give another bolus of Plasmanate 250 mL. Otherwise, continue supportive care. Continue steroids. Prognosis remains guarded. One-half hour of critical care time. Job ID: [id number]
[2020-05-14] MEDS ORDERED: Budesonide 0.25 MG/2 ML NEB INH SCH (18:30)
--- NOTE | 2020-05-14 19:44 | PDOC.BPN ---
- Brief Progress Note conversations with and son today about their desire to start pulmicort the only pulmicort we have available is nebulized or the powder inhaled form at [facility]. After long discussions with respiratory therapist about our available options a decision was made by the to maintain the duleral ICS therapy he is already on. In order to perform nebulized pulmicort you would have to disconnect the peep briefly on the ventilator. I explained this to the family as well as had respiratory therapy call to discuss this with family. This has risk of losing the necessary peep to keep alveoli open and the benefit would not be any different than the dulera he is already on. stated to me that she would rather keep him on the dulera than risk the SE's of stopping the PEEP for the nebulizer treatment of pulmicort.
[2020-05-14] MEDS: Simvastatin 5 MG TAB PO SCH (21:11)
[2020-05-15] MEDS: Lorazepam 2 MG/ML VIAL SLOW IVP PRN ×3 (00:40→23:29)
[2020-05-15] MEDS: Albuterol 200 PUFF (6.7GM INHALER) INH SCH ×4 (00:44→19:45)
[2020-05-15] MEDS: Cefepime 2 GM in Sodium Chloride 0.9% 100 ML IVPB SCH ×3 (02:53→16:33)
[2020-05-15] MEDS: HumaLOG 300 UNITS/3 ML VIAL SC PRN (03:36)
[2020-05-15] MEDS: fentaNYL Citrate/PF 2,000 MCG in Sodium Chloride 0.9% 60 ML IV SCH ×2 (04:42→18:30)
[2020-05-15 05:12] LABS: Anion Gap 15 mmol/L (10-20); BUN (Urea Nitrogen) 29 mg/dL (8.4-25.7); Calc. Creatinine Clearance 126 mL/min (70-130); Calcium 8.3 mg/dL (7.8-10.44); Carbon Dioxide 29 mmol/L (23-31); Chloride 99 mmol/L (98-107); Glucose 184 mg/dL (83-110); Potassium 4.9 mmol/L (3.5-5.1); Sodium 138 mmol/L (136-145)
[2020-05-15] MEDS: Propofol 1,000 MG/100 ML VIAL IV PRN ×3 (05:25→18:19)
--- NOTE | 2020-05-15 06:20 | PDOC.FM ---
- Subjective Subjective: propofol turned down to 20 from 30 yesterday. will try and decrease to 15 today. off of levophed with MAPs high 70's. sitting up intubated and sedated. no acute overnight events. - Objective Vital Signs & Weight: Vital Signs (12 hours) Temp Pulse Resp BP Pulse Ox 05/15/20 04:00 26 H 05/15/20 03:08 85 99/66 05/15/20 03:00 98.9 F 05/15/20 02:00 32 H 05/15/20 00:00 98.9 F 32 H 87 L 05/14/20 22:32 79 158/86 H 05/14/20 22:00 99.2 F 35 H 05/14/20 20:00 32 H 94 L 05/14/20 19:19 75 98/59 L 05/14/20 19:00 99.3 F Weight Admit Weight 89.358 kg Weight 89.3 kg Most Recent Monitor Data Heart Rate from ECG 89 NIBP 143/87 NIBP BP-Mean 105 Respiration from ECG 21 SpO2 89 I&O: 05/13/20 05/14/20 05/15/20 06:59 06:59 06:59 Intake Total 2332.1 1605 1260.6 Output Total 2890 2270 2575 Balance -557.9 -665 -1314.4 Result Diagrams: 05/15/20 04:00 05/15/20 04:00 Phys Exam - Physical Examination intubated ans sedated, head of bed elevated HEENT: moist MMs Neck: supple Respiratory: no wheezing, clear to auscultation bilateral Cardiovascular: RRR, no significant murmur Gastrointestinal: soft, no distention, positive bowel sounds Musculoskeletal: pulses present, edema present Skin: normal turgor Dx/Plan (1) Acute respiratory failure with hypoxia Code(s): J96.01 - ACUTE RESPIRATORY FAILURE WITH HYPOXIA Status: Acute (2) Pneumonia due to COVID-19 virus Code(s): U07.1 - COVID-19; J12.89 - OTHER VIRAL PNEUMONIA Status: Acute (3) HLD (hyperlipidemia) Code(s): E78.5 - HYPERLIPIDEMIA, UNSPECIFIED Status: Acute (4) Diabetes mellitus type 2 in obese Code(s): E11.69 - TYPE 2 DIABETES MELLITUS WITH OTHER SPECIFIED COMPLICATION; E66.9 - OBESITY, UNSPECIFIED Status: Acute - Plan Plan: #Acute Hypoxic Resp failure 07/26 COVID PNA (+ on 04/22) #Sepsis - Patient's steroids increased to 40mg methylprednisolone Q6H 04/25, decreased to BID 05/05, Albuterol PRN - Received Conv plasma and remdesivir X5 doses. ID consulted. - Pulm consulted. Rec conv plasma, remdesivir, added doxycycline 04/25-05/05. on Cefepime currently. - Patient intubated 05/05 due to respiratory fatigue; tolerated the procedure well - Started cefepime and vanc on 05/06 for possible HAP. D/c vanc on 04/30 due to neg blood cxc. - Started tube feeds 05/07 @ 22 - Dietary consulted to assist with nutritional needs - Lovenox d/c'd on 05/09 and switched to Fondaparinox due to severe thrombocytopenia. Anti Xa levels in therapeutic range of enoxaparin and many studies show similarities in anti Xa levels. - IV protonix for stress ulcer prevention - Daily discussions with family; family updated before and after intubation 05/05, agreeable with the plan of care. DNR status since 05/11, per . - CXR worsened on 05/09, slightly improved on 05/10. Shows pneumomediastinum . Improved penumomediastinum on f/u studies. CXr shows stable B infiltrates. - Prone for 18 hr of day, supine for other 6 hr. for X2 days (05/10-), per Dr. Sunitha dominguez. Tolerated 2 days, no proning due to lower BP's at this time. - contact, airborne and droplet precautions d/c'd 05/12. Added vitamin D per tube. - levophed d/c 05/14 #Concern for hospital acquired pna -procal has down trended since on cefepime -started on vancomycin and cefepime 05/06. Vanc D/c'd on 05/10. - Repeat procal on 05/13 not increased, low at 0.11. will trend. if elevated with setting of hypotension will discuss starting merepenam. likely not worsening bacterial pna. #Thrombocytopenia, improving -patients platelets dropped from 126>76>62, and again to 56 on 05/09, --> 77 on 05/11, 72 on 05/12. 113 on 05/13. 62 on 05/14. 67 on 05/15. - D/C'd lovenox and started fondaparinox due to side effect profile not causing as much thrombocytopenia. - anti X a levels in therapeutic range. continue current dose 5 mg SC daily fundaparinox and monitor renal function. #Hyperkalemia, improved - K 5.8, gave amp D50 and 10 units IV insulin on 05/11. - 5.3 on 05/12. 4.8 on 05/13. 4.6 on 05/14. - trend daily. #UTI-improved -urine 05/06 demonstrated 250LE, 1+ bacteria. urine ccx: yeast 25-50k. -patient's WBC increased over the course of the last several days; procal increased -patient started on vancomycin and cefepime 05/06 for concern for hospital acquired pna. Vand d/c'd 05/10. #DM Type 2 - Hold home meds - Hypoglycemia protocol - ACHS glucose checks - Lantus added to regimen 04/27 as blood glucose elevated, likely 2/2 steroids #HTN - holding home meds, Valsartan due to lower bp's #HLD - Continue home meds DVTppx: Fondaparinox 5 mg SC daily Pressor support: levophed, trying to wean. Diet: Tube feeds @ 22ml/hr PCP: Melvin Code status: DNR, per with care goal meeting 05/11 with palliative care team. Addendum - Attending - Attending Attestation Date/Time: 05/15/20 6653 I personally evaluated the patient and discussed the management with Dr. Aiken. I agree with the History, Examination, Assessment and Plan documented above with any addition or exceptions noted below. Patient is off levophed. Trying to wean proprofol. Vent mgmt per pulmonology. Prognosis still guarded.
[2020-05-15 06:24] LABS: Band 26 % (5-11); Eosinophils 1 % (0-10); Hemoglobin 10.4 g/dL (14.0-18.0); Lymphocytes 3 % (21-51); MDiff Complete? YES; Mean Corpuscular HGB CONC 33.6 g/dL (32.0-36.0); Mean Corpuscular Hemoglobin 32.7 pg (27.0-31.0); Mean Corpuscular Volume 97.3 fL (78.0-98.0); Mean Platelet Volume 10.2 fL (7.4-10.4); Monocytes 4 % (0-10); Myelocyte 2 % (0-0); Neutrophil 64 % (42-75); Platelet Count 67 thou/uL (130-400); Platelet Morphology Comment Appears Decreased; RBC Distribution Width 13.7 % (11.5-14.5); White Blood Cell (WBC) Count 7.4 thou/uL (4.8-10.8)
[2020-05-15] MEDS: Mometasone 200 MCG/Formoterol 5 MCG 120 PUFF INHALER INH SCH ×2 (07:37→19:50)
[2020-05-15] MEDS: Fondaparinux Sodium 2.5 MG/0.5 ML SYRINGE SC SCH (07:52)
[2020-05-15 08:15] LABS: Actual Bicarbonate (HCO3a) 33.6 mEq/L (22-28); Base Excess (BEa) 7.2 mEq/L (-2.0 to +3.0); CO2 Tension 56.9 mmHg (35.0-45.0); Calcium, Ionized (arterial) 1.15 mmol/L (1.12-1.30); Carboxyhemoglobin (COHb) 2.2 gm% (0.0-3.0); Hemoglobin (Hb) 11.1 g/dL (14.0-18.0); Potassium - ABG Lab 4.31 mmol/L (3.70-5.30); pH, Arterial 7.39 (7.35-7.45)
[2020-05-15 08:21] LABS: O2 Tension (PaO2), arterial 54.1 mmHg (> 70.0); Puncture Site LRA
[2020-05-15 08:22] LABS: ALV-art Gradient 302.575 mmHg (0-20)
--- NOTE | 2020-05-15 08:25 | RAD ---
Chest one view HISTORY: Pneumonia. Dyspnea. Follow-up. COMPARISON: 05/14/2020. FINDINGS: Cardiac silhouette is magnified by projection. Mediastinum slightly shifted rightward with patient rotation. Lucency outlines the cardiac margin and extends vertically into the upper mediastinum and neck. Lines and tubes are unchanged in position. Pulmonary vasculature remains engorged. Diffuse reticulonodular interstitial prominence and patchy ar eas of parenchymal infiltrate are unchanged. No evidence of pneumothorax. IMPRESSION : Pneumomediastinum, new. Prominent patchy infiltrate and other findings are otherwise stable. Findings were called to the patient's nurse in the CCU and sent via [facility] [employer] to Dr. Briceno at the time of dictation. Code CR.
[2020-05-15] MEDS: Pantoprazole 40 MG VIAL IVP SCH (09:03)
[2020-05-15] MEDS: Insulin Glargine 25 UNITS in Pre-Filled Syringe 1 EACH SC SCH (09:03)
[2020-05-15] MEDS: Fish Oil 1,000 MG CAP PO SCH (09:03)
[2020-05-15] MEDS: Calcium Carbonate 600 MG + Vit D TAB PO SCH (09:03)
[2020-05-15] MEDS: Cholecalciferol (Vitamin D3) 400 UNITS TAB PO SCH (09:04)
[2020-05-15] MEDS: methylPREDNISolone Sod Succ 40 MG VIAL IVP SCH ×2 (10:11→19:42)
--- NOTE | 2020-05-15 10:56 | PRG ---
DATE OF SERVICE: 05/15/2020 SUBJECTIVE: Clifton Aguilar is a 74-year-old gentleman, remains intubated in the vent, sedated. OBJECTIVE: VITAL SIGNS: Temperature 99, pulse 100, respiratory rate 24, sats 95% on 60% FiO2, low PEEP of 11, blood pressure 158/60. CHEST: Rhonchi, crackles. CARDIAC: Sinus tach ABDOMEN: Soft. IMAGING: X-ray shows pneumomediastinum. PO2 was 54, pCO2 , bilevel 32/11, 60%. His I's and O's have been otherwise good. ASSESSMENT: Duncan positive pneumonia, respiratory failure, pneumomediastinum, day #21 on the vent. Family did want a trach or a PEG apparently, made a DNR. Continue supportive care, nutrition, PT. One-half hour of critical care time. Job ID: [id number]
[2020-05-15] MEDS ORDERED: Fentanyl BOLUS 250 ML IVPB PRN (18:15)
[2020-05-15] MEDS ORDERED: Morphine 2 MG/ML VIAL SLOW IVP PRN (18:15)
[2020-05-15] MEDS: Simvastatin 5 MG TAB PO SCH (19:42)
[2020-05-16] MEDS: Albuterol 200 PUFF (6.7GM INHALER) INH SCH ×4 (00:35→18:57)
[2020-05-16] MEDS: Cefepime 2 GM in Sodium Chloride 0.9% 100 ML IVPB SCH (02:05)
[2020-05-16] MEDS: Propofol 1,000 MG/100 ML VIAL IV PRN ×4 (02:05→23:11)
[2020-05-16] MEDS: HumaLOG 300 UNITS/3 ML VIAL SC PRN ×2 (04:07→17:08)
[2020-05-16 04:35] LABS: Anion Gap 10 mmol/L (10-20); BUN (Urea Nitrogen) 31 mg/dL (8.4-25.7); Calc. Creatinine Clearance 130 mL/min (70-130); Calcium 8.4 mg/dL (7.8-10.44); Carbon Dioxide 36 mmol/L (23-31); Chloride 97 mmol/L (98-107); Glucose 186 mg/dL (83-110); Potassium 4.7 mmol/L (3.5-5.1); Sodium 138 mmol/L (136-145)
[2020-05-16] MEDS: fentaNYL Citrate/PF 2,000 MCG in Sodium Chloride 0.9% 60 ML IV SCH ×2 (05:10→19:11)
[2020-05-16] MEDS: Lorazepam 2 MG/ML VIAL SLOW IVP PRN ×3 (05:37→15:03)
[2020-05-16] MEDS: Fondaparinux Sodium 2.5 MG/0.5 ML SYRINGE SC SCH (05:37)
[2020-05-16 06:04] LABS: Hemoglobin 11.1 g/dL (14.0-18.0); Mean Corpuscular HGB CONC 33.3 g/dL (32.0-36.0); Mean Corpuscular Hemoglobin 32.4 pg (27.0-31.0); Mean Corpuscular Volume 97.3 fL (78.0-98.0); Mean Platelet Volume 9.6 fL (7.4-10.4); Platelet Count 76 thou/uL (130-400); RBC Distribution Width 13.9 % (11.5-14.5); Red Blood Cell (RBC) Count 3.42 mill/uL (4.70-6.10); White Blood Cell (WBC) Count 5.7 thou/uL (4.8-10.8)
[2020-05-16 06:07] LABS: Band 11 % (5-11); Lymphocytes 4 % (21-51); MDiff Complete? YES; Metamyelocyte 1 % (0-0); Monocytes 2 % (0-10); Neutrophil 81 % (42-75); Platelet Morphology Comment Appears Decreased
--- NOTE | 2020-05-16 07:20 | PDOC.FM ---
- Subjective Subjective: no acute overnight events off pressor support vent settings at 70% FIO2, 11 PEEP, 24 RR MAP's in 90's. Procal trended down, planning to stop antibiotics today. good UOP plt stable at 76. CXR stable, no pneumothorax. - Objective MAR Reviewed: Yes Vital Signs & Weight: Vital Signs (12 hours) Temp Pulse Resp BP Pulse Ox 05/16/20 06:00 33 H 05/16/20 05:41 83 L 05/16/20 05:00 99.3 F 05/16/20 04:00 32 H 05/16/20 02:55 87 95/65 05/16/20 02:00 99.2 F 30 H 05/16/20 00:00 38 H 05/15/20 23:36 84 L 05/15/20 22:30 82 156/82 H 05/15/20 22:00 98.3 F 31 H 05/15/20 20:00 29 H 05/15/20 19:52 93 L 05/15/20 19:47 90 168/87 H Weight Admit Weight 89.358 kg Weight 88.1 kg Most Recent Monitor Data Heart Rate from ECG 101 NIBP 124/78 NIBP BP-Mean 93 Respiration from ECG 37 SpO2 84 I&O: 05/15/20 05/16/20 05/17/20 06:59 06:59 06:59 Intake Total 1777.1 2061 Output Total 2655 1470 Balance -877.9 591 Result Diagrams: 05/16/20 03:56 05/16/20 03:56 Phys Exam - Physical Examination intubated and sedated on propofol @ 20. slightly awakens to sternal rub. HEENT: moist MMs, sclera anicteric Neck: no JVD, supple Respiratory: no wheezing coarse breath sounds. good air movement. Cardiovascular: RRR, no significant murmur Gastrointestinal: soft, no distention, positive bowel sounds Musculoskeletal: pulses present, edema present sedated and not awak enough to respond to commands Dx/Plan (1) Acute respiratory failure with hypoxia Code(s): J96.01 - ACUTE RESPIRATORY FAILURE WITH HYPOXIA Status: Acute (2) Pneumonia due to COVID-19 virus Code(s): U07.1 - COVID-19; J12.89 - OTHER VIRAL PNEUMONIA Status: Acute (3) HLD (hyperlipidemia) Code(s): E78.5 - HYPERLIPIDEMIA, UNSPECIFIED Status: Acute (4) Diabetes mellitus type 2 in obese Code(s): E11.69 - TYPE 2 DIABETES MELLITUS WITH OTHER SPECIFIED COMPLICATION; E6 6.9 - OBESITY, UNSPECIFIED Status: Acute - Plan Plan: #Acute Hypoxic Resp failure / COVID PNA (+ on 04/22) #Sepsis - Patient's steroids increased to 40mg methylprednisolone Q6H 04/25, decreased to BID 05/05, Albuterol PRN - Received Conv plasma and remdesivir X5 doses. ID consulted. - Patient intubated 05/05 due to respiratory fatigue; tolerated the procedure well - Pulm consulted. conv plasma, remdesivir, added doxycycline 04/25-05/05. Cerfepime 05/05-05/16. D/c'd on 05/16. - Started cefepime and vanc on 05/06 for possible HAP. D/c vanc on 04/30 due to neg blood cxc. Cefepime d/c's on 05/16. - Started tube feeds 05/07 @ 22, Dietary consulted to assist with nutritional needs - Lovenox d/c'd on 05/09 and switched to Fondaparinox due to severe thrombocytopenia. Anti Xa levels in therapeutic range of enoxaparin and many studies show similarities in anti Xa levels. - IV protonix for stress ulcer prevention - Daily discussions with family; family updated before and after intubation 05/05, agreeable with the plan of care. DNR status since 05/11, per . - CXR remains stable diffuse infiltrates, wtih intermittent pnuemomediastinum with resorption every few days. - Prone for 18 hr of day, supine for other 6 hr. for X2 days (05/10-), per Dr. Sunitha dominguez. Tolerated 2 days, no further proning. - contact, airborne and droplet precautions d/c'd 05/12. Added vitamin D per tube. - levophed d/c 05/14 #Concern for hospital acquired pna -procal has down trended. -started on vancomycin and cefepime 05/06. Vanc D/c'd on 05/10. Cefepime d/c's on 05/16. #Thrombocytopenia, improving -patients platelets dropped from 126>76>62, and again to 56 on 05/09, --> 77 on 05/11, 72 on 05/12. 113 on 05/13. 62 on 05/14. 67 on 05/15. 76 on 05/16. - D/C'd lovenox and started fondaparinox due to side effect profile not causing as much thrombocytopenia. - anti X a levels in therapeutic range. continue current dose 5 mg SC daily fundaparinox and monitor renal function. #Hyperkalemia, improved - K 5.8, gave amp D50 and 10 units IV insulin on 05/11. - 5.3 on 05/12. 4.8 on 05/13. 4.6 on 05/14. 4.7 on 05/16. - trend daily. #UTI-improved -urine 05/06 demonstrated 250LE, 1+ bacteria. urine ccx: yeast 25-50k. -patient started on vancomycin and cefepime 05/06 for concern for hospital acqu ired pna. Vand d/c'd 05/10. Cefepime d/c'd on 05/16. #DM Type 2 - Hold home meds - Hypoglycemia protocol - ACHS glucose checks - Lantus added to regimen 04/27 as blood glucose elevated, likely 2/2 steroids - goal bg 140-180 as in hospital. #HTN - holding home meds, Valsartan due to lower bp's #HLD - Continue home meds DVTppx: Fondaparinox 5 mg SC daily Pressor support: off of levophed Diet: Tube feeds @ 22ml/hr PCP: Melvin Code status: DNR, per with care goal meeting 05/11 with palliative care team.
--- NOTE | 2020-05-16 08:18 | RAD ---
PORTABLE CHEST: HISTORY: CCU followup on ventilator. Pneumonia. COMPARISON: 05/15/2020. FINDINGS/IMPRESSION: ET and NG tube again noted. Mild cardiomegaly and mild vascular congestion. Hazy bilateral diffuse infiltrates are not significantly changed from yesterday. POS: AGW
[2020-05-16] MEDS: Mometasone 200 MCG/Formoterol 5 MCG 120 PUFF INHALER INH SCH ×2 (08:19→18:58)
[2020-05-16 08:23] LABS: Actual Bicarbonate (HCO3a) 37.3 mEq/L (22-28); Base Excess (BEa) 10.7 mEq/L (-2.0 to +3.0); CO2 Tension 58.9 mmHg (35.0-45.0); Calcium, Ionized (arterial) 1.18 mmol/L (1.12-1.30); Carboxyhemoglobin (COHb) 2.8 gm% (0.0-3.0); Hemoglobin (Hb) 12.3 g/dL (14.0-18.0); Potassium - ABG Lab 4.09 mmol/L (3.70-5.30); pH, Arterial 7.42 (7.35-7.45)
[2020-05-16 08:56] LABS: O2 Tension (PaO2), arterial 42.5 mmHg (> 70.0); Puncture Site LRA
[2020-05-16 08:57] LABS: ALV-art Gradient 311.675 mmHg (0-20)
[2020-05-16] MEDS: Calcium Carbonate 600 MG + Vit D TAB PO SCH (09:54)
[2020-05-16] MEDS: Insulin Glargine 25 UNITS in Pre-Filled Syringe 1 EACH SC SCH (09:55)
[2020-05-16] MEDS: Fish Oil 1,000 MG CAP PO SCH (09:55)
[2020-05-16] MEDS: Cholecalciferol (Vitamin D3) 400 UNITS TAB PO SCH (09:55)
[2020-05-16] MEDS: Pantoprazole 40 MG VIAL IVP SCH (10:00)
[2020-05-16] MEDS: Sodium Chloride 0.9% (PF) 10 ML VIAL FS PRN (10:00)
[2020-05-16] MEDS: methylPREDNISolone Sod Succ 40 MG VIAL IVP SCH ×2 (10:00→19:20)
--- NOTE | 2020-05-16 10:22 | PRG ---
DATE OF SERVICE: 05/16/2020 SUBJECTIVE: Clifton Aguilar is a 74-year-old gentleman, remains in the ICU. He is on vent for 12 days and hospital for 23 days. OBJECTIVE: VITAL SIGNS: Temperature 99, pulse 95, blood pressure 130/81, saturations , respiratory rate 18. CHEST: He still got pneumomediastinum, chest crackles. No wheezing. CARDIAC: Normal S1, S2. No gallops. LABORATORY DATA: White count 15,000, hemoglobin and hematocrit 11 and 33, platelet count is 76. His pO2 was only 42, pCO2 on 60% on bilevel, low PEEP of 11. His requirements were increased to 70%. ASSESSMENT: Duncan positive pneumonia, respiratory failure, left-sided pneumomediastinum. He is clearly not weanable. I spoke to his son this morning. They understand his prognosis is grave. We are going to talk to the mother regarding ongoing care. He is on empiric antibiotics, told to continue for a total of a week. One-half hour of critical time. Job ID: [id number]
--- NOTE | 2020-05-16 10:24 | PRG ---
DATE OF SERVICE: 05/16/2020 Mr. Aguilar is an unfortunate 74-year-old man, who was treated for COVID pneumonia approximately 3 weeks ago. He had a very slow recovery and is still requiring ventilatory support. He is a DNR per the wishes of his family. He is, as stated, still on ventilator with acute respiratory failure and hypoxia. His most recent blood gas shows a pH of 7.42, pO2 of 42.5, with an O2 saturation of 80%. His prognosis remains very poor, and as stated, he is a DNR. Job ID: [id number]
[2020-05-16] MEDS: Simvastatin 5 MG TAB PO SCH (19:20)
[2020-05-17] MEDS: Albuterol 200 PUFF (6.7GM INHALER) INH SCH ×4 (00:28→18:51)
[2020-05-17] MEDS: HumaLOG 300 UNITS/3 ML VIAL SC PRN (03:13)
[2020-05-17 04:03] LABS: Anion Gap 7 mmol/L (10-20); BUN (Urea Nitrogen) 38 mg/dL (8.4-25.7); Calc. Creatinine Clearance 119 mL/min (70-130); Calcium 8.3 mg/dL (7.8-10.44); Carbon Dioxide 37 mmol/L (23-31); Chloride 100 mmol/L (98-107); Glucose 164 mg/dL (83-110); Potassium 4.4 mmol/L (3.5-5.1); Sodium 140 mmol/L (136-145)
[2020-05-17 04:48] LABS: Band 19 % (5-11); Eosinophils 2 % (0-10); Hemoglobin 10.5 g/dL (14.0-18.0); Lymphocytes 7 % (21-51); MDiff Complete? YES; Mean Corpuscular HGB CONC 33.2 g/dL (32.0-36.0); Mean Corpuscular Hemoglobin 31.8 pg (27.0-31.0); Mean Corpuscular Volume 95.7 fL (78.0-98.0); Mean Platelet Volume 9.6 fL (7.4-10.4); Monocytes 2 % (0-10); Neutrophil 70 % (42-75); Platelet Count 90 thou/uL (130-400); Platelet Morphology Comment Appears Decreased; RBC Distribution Width 14.2 % (11.5-14.5); White Blood Cell (WBC) Count 6.8 thou/uL (4.8-10.8)
[2020-05-17] MEDS: Fondaparinux Sodium 2.5 MG/0.5 ML SYRINGE SC SCH (05:16)
[2020-05-17 06:57] LABS: Actual Bicarbonate (HCO3a) 35.4 mEq/L (22-28); Base Excess (BEa) 8.8 mEq/L (-2.0 to +3.0); CO2 Tension 58.3 mmHg (35.0-45.0); Calcium, Ionized (arterial) 1.16 mmol/L (1.12-1.30); Carboxyhemoglobin (COHb) 2.7 gm% (0.0-3.0); Hemoglobin (Hb) 11.9 g/dL (14.0-18.0); Potassium - ABG Lab 3.89 mmol/L (3.70-5.30)
[2020-05-17 06:58] LABS: O2 Tension (PaO2), arterial 46.4 mmHg (> 70.0); Puncture Site RRA
[2020-05-17 06:59] LABS: ALV-art Gradient 308.525 mmHg (0-20)
[2020-05-17] MEDS: Mometasone 200 MCG/Formoterol 5 MCG 120 PUFF INHALER INH SCH ×2 (07:31→18:52)
[2020-05-17] MEDS: Insulin Glargine 25 UNITS in Pre-Filled Syringe 1 EACH SC SCH (08:42)
[2020-05-17] MEDS: Propofol 1,000 MG/100 ML VIAL IV PRN ×3 (08:42→22:28)
[2020-05-17] MEDS: fentaNYL Citrate/PF 2,000 MCG in Sodium Chloride 0.9% 60 ML IV SCH ×2 (08:42→21:44)
--- NOTE | 2020-05-17 09:29 | RAD ---
PORTABLE CHEST: Date: 05/17/2020 HISTORY: CCU follow-up, on ventilator. COMPARISON: 05/16/2020. FINDINGS/IMPRESSION: ET tube and NG tube are noted. Heart is prominent with vascular engorgement. Interstitial and hazy al veolar infiltrate seen bilaterally, more pronounced in the left lower lung, unchanged from yesterday. POS: AGW
--- NOTE | 2020-05-17 09:30 | PRG ---
DATE OF SERVICE: 05/17/2020 SUBJECTIVE: Clifton Aguilar remains in the ICU, unresponsive, day #23, juan positive respiratory failure pneumonia. OBJECTIVE: VITAL SIGNS: Temperature 99. Pulse 85, blood pressure 101/65, sats are 90% on 60% FiO2 and a PEEP of 11. His tidal volume on bilevel is about 700. CHEST: Rhonchi, crackles. CARDIAC: Sinus tach. ABDOMEN: Soft. LABORATORY DATA: White count 6000, hemoglobin and hematocrit of 10 and 31, platelet count 90. PO2 . Lytes are normal. ASSESSMENT: Respiratory failure, juan positive pneumonia, do not resuscitate. PLAN: Once again, we will discuss with family, ongoing issues. Hopefully, we can extubate and comfort care. He is clearly not weanable. One-half hour of critical time. Job ID: [id number]
--- NOTE | 2020-05-17 09:49 | PDOC.FM ---
- Subjective Subjective: no acute overnight events family discussions to be decided for continued care and what they think pt would want. MAPs 70-80's off pressors ABG: ph: 7.4, CO2: 58, O2 46 and bicarb 35 antiXa level therapeutic - Objective MAR Reviewed: Yes Vital Signs & Weight: Vital Signs (12 hours) Temp Pulse Resp BP Pulse Ox 05/17/20 08:00 95 05/17/20 07:33 85 101/61 05/17/20 07:00 99.1 F 05/17/20 06:00 33 H 05/17/20 04:00 32 H 05/17/20 03:32 94 L 05/17/20 03:00 99.5 F 05/17/20 02:46 89 93/59 L 05/17/20 02:00 32 H 05/17/20 00:00 99.3 F 32 H 05/16/20 22:31 93 106/66 05/16/20 22:00 34 H Weight Admit Weight 89.358 kg Weight 87.3 kg Most Recent Monitor Data Heart Rate from ECG 94 NIBP 97/65 NIBP BP-Mean 75 Respiration from ECG 24 SpO2 92 I&O: 05/16/20 05/17/20 05/18/20 06:59 06:59 06:59 Intake Total 2061 1735.6 Output Total 1470 3136 40 Balance 591 -1400.4 -40 Result Diagrams: 05/17/20 03:30 05/17/20 03:30 Phys Exam - Physical Examination intubated and sedated, lying supine HEENT: moist MMs, sclera anicteric Neck: supple Respiratory: no wheezing, no rales, no rhonchi, clear to auscultation bilateral Cardiovascular: RRR, no significant murmur, no rub Gastrointestinal: soft, no distention, positive bowel sounds Musculoskeletal: pulses present, edema present Skin: normal turgor Dx/Plan (1) Acute respiratory failure with hypoxia Code(s): J96.01 - ACUTE RESPIRATORY FAILURE WITH HYPOXIA Status: Acute (2) Pneumonia due to COVID-19 virus Code(s): U07.1 - COVID-19; J12.89 - OTHER VIRAL PNEUMONIA Status: Acute (3) HLD (hyperlipidemia) Code(s): E78.5 - HYPERLIPIDEMIA, UNSPECIFIED Status: Acute (4) Diabetes mellitus type 2 in obese Code(s): E11.69 - TYPE 2 DIABETES MELLITUS WITH OTHER SPECIFIED COMPLICATION; E66.9 - OBESITY, UNSPECIFIED Status: Acute - Plan Plan: #Acute Hypoxic Resp failure / COVID PNA (+ on 04/22) #Sepsis - Patient's steroids increased to 40mg methylprednisolone Q6H 04/25, decreased to BID 05/05, Albuterol PRN - Received Conv plasma and remdesivir X5 doses. ID consulted. - Patient intubated 05/05 due to respiratory fatigue; tolerated the procedure well - Pulm consulted. conv plasma, remdesivir, added doxycycline 04/25-05/05. Cefepime 05/05-05/16. - Started cefepime and vanc on 05/06 for possible HAP. D/c vanc on 04/30 due to neg blood cxc. Cefepime d/c's on 05/16. - Started tube feeds 05/07 @ 22, Dietary consulted to assist with nutritional needs - Lovenox d/c'd on 05/09 and switched to Fondaparinox due to severe thrombocytopenia. Anti Xa levels continue to be in therapeutic range of enoxaparin and many studies show similarities in anti Xa levels. - IV protonix for stress ulcer prevention - Daily discussions with family; family updated before and after intubation 05/05, agreeable with the plan of care. DNR status since 05/11, per . - CXR remains stable diffuse infiltrates, wtih intermittent pnuemomediastinum with resorption every few days. - Prone for 18 hr of day, supine for other 6 hr. for X2 days (05/10-), per Dr. Sunitha dominguez. Tolerated 2 days, no further proning. - contact, airborne and droplet precautions d/c'd 05/12. Added vitamin D per tube. - levophed d/c 05/14 - on dulera inhaler BID, no pulmicort inhaler on formulary. inorder to proved pulmicort it would be a neb and pt would have to disconnected from PEEP briefly. This risk is not one family wants to take. explained ot family that dulera ICS provides similar treatment benefits. #Concern for hospital acquired pna -procal has down trended. -started on vancomycin and cefepime 05/06. Vanc D/c'd on 05/10. Cefepime d/c's on 05/16. #Thrombocytopenia, improving -patients platelets dropped from 126>76>62, and again to 56 on 05/09, --> 77 on 05/11, 72 on 05/12. 113 on 05/13. 62 on 05/14. 67 on 05/15. 76 on 05/16. 90 on 05/17. - D/C'd lovenox and started fondaparinox due to side effect profile not causing as much thrombocytopenia. - anti X a levels in therapeutic range. continue current dose 5 mg SC daily fund aparinox and monitor renal function. #Hyperkalemia, improved - K 5.8, gave amp D50 and 10 units IV insulin on 05/11. - 5.3 on 05/12. 4.8 on 05/13. 4.6 on 05/14. 4.7 on 05/16. 4.4 on 05/17. - trend daily. #UTI-improved -urine 05/06 demonstrated 250LE, 1+ bacteria. urine ccx: yeast 25-50k. -patient started on vancomycin and cefepime 05/06 for concern for hospital acquired pna. Vand d/c'd 05/10. Cefepime d/c'd on 05/16. #DM Type 2 - Hold home meds - Hypoglycemia protocol - ACHS glucose checks - Lantus added to regimen 04/27 as blood glucose elevated, likely 2/2 steroids - goal bg 140-180 as in hospital. #HTN - holding home meds, Valsartan due to lower bp's #HLD - Continue home meds DVTppx: Fondaparinox 5 mg SC daily Pressor support: off of levophed Diet: Tube feeds @ 22ml/hr PCP: Melvin Code status: DNR, per with care goal meeting 05/11 with palliative care team.
[2020-05-17] MEDS: Pantoprazole 40 MG VIAL IVP SCH (09:59)
[2020-05-17] MEDS: methylPREDNISolone Sod Succ 40 MG VIAL IVP SCH ×2 (09:59→20:45)
[2020-05-17] MEDS: Calcium Carbonate 600 MG + Vit D TAB PO SCH (10:00)
[2020-05-17] MEDS: Cholecalciferol (Vitamin D3) 400 UNITS TAB PO SCH (10:00)
[2020-05-17] MEDS: Fish Oil 1,000 MG CAP PO SCH (10:00)
[2020-05-17] MEDS ORDERED: Polyethylene Glycol 3350 17 GM Packet PER TUBE PRN (10:03)
--- NOTE | 2020-05-17 10:20 | PRG ---
DATE OF SERVICE: 05/17/2020 Mr. Aguilar remains very somnolent on the ventilator. His overall prognosis remains extremely poor. Discussions in place with family regarding his overall outlook and future care. Pulmonary is also seeing the patient on adjusting ventilator. Job ID: [id number]
--- NOTE | 2020-05-17 14:58 | PDOC.PALPN ---
Palliative Progress Note - Subjective Intubated, mechanical ventilation. at bedside. Remains with unchanged chest x-ray from 05/16/2020. - Objective Vital Signs: Vital Signs - Most Recent Temp Pulse Resp BP Pulse Ox 99 F 96 25 H 94/53 L 95 05/17/20 12:00 05/17/20 13:05 05/17/20 14:00 05/17/20 13:05 05/17/20 08:00 - Physical Exam Constitutional: encephalitic, ill appearing HEENT: moist MMs Deviation from normal: bilaterally adventicious Cardiovascular: RRR Gastrointestinal: soft, non-tender Genitourinary: pretty catheter Musculoskeletal: no cyanosis, edema present, diffuse muscle atrophy Skin: fragile Deviation from normal: Sedated, non responsive - Assessment (1) Palliative care encounter Code(s): Z51.5 - ENCOUNTER FOR PALLIATIVE CARE Current Visit: Yes Status: Acute (2) Acute respiratory failure with hypoxia Code(s): J96.01 - ACUTE RESPIRATORY FAILURE WITH HYPOXIA Current Visit: Yes Status: Acute (3) Pneumonia due to COVID-19 virus Code(s): U07.1 - COVID-19; J12.89 - OTHER VIRAL PNEUMONIA Current Visit: Yes Status: Acute - Plan Plan: Emotional support provided to who is at bedside. *She states she understands that he is "unchanged" and they had hoped he would be "better". Discussed poor prognosis. *Hopeful that God will heal Mr Aguilar, however she and the family are understanding that potentially comfort measures may need to be further discussed. Therapeutic listening. [25] minutes spent on this encounter with >50% of the time in counseling and home health outreach coordinator rdination of care. - ROS Non Response: due to endotracheal tube, due to mental status
--- NOTE | 2020-05-17 17:15 | PRG ---
DATE OF SERVICE: 05/17/2020 SUBJECTIVE: Mr. Aguilar is in intubated in the ICU. He is not making progress. He is on high bilevel pressure support requirements and 60% FiO2 requirement. He has been with of T-max 100.2 on May 16, and his heart rate 93, and O2 saturations were 95, with the current bilevel in 60%. His pupils are constricted. No significant movements in extremities. Symmetric breath sounds. No obvious crackles or wheezing. S1-S2 regular rate. Abdomen is not distended and I's and O's are anywhere from 500 positive to minus 1400. Indwelling Cuello catheter. Again, extremities are flaccid. White cell count 6.8, hemoglobin 10.5, platelets 90,000 with 19% bands. Creatinine 0.69. Last chest x-ray from May 17 with prominent vascular engorgement, interstitial and hazy alveolar infiltrates bilaterally, more pronounced in the left lung. Currently, the patient is on inhalers, methylprednisone 40 b.i.d., insulin, brittle type 2 diabetes, hypertension, severe COVID-19 pneumonia. On his 32nd day of illness his isolation precautions have been discontinued, now dealing with the aftermath of the infection. He has been made DNR, but they are going to continue with interventions per family request. He may need a tracheostomy soon. Job ID: [id number] MTDD
[2020-05-17] MEDS: Simvastatin 5 MG TAB PO SCH (20:45)
[2020-05-17] MEDS: Lorazepam 2 MG/ML VIAL SLOW IVP PRN (23:09)
[2020-05-18] MEDS: Albuterol 200 PUFF (6.7GM INHALER) INH SCH ×5 (00:43→23:58)
[2020-05-18] MEDS: Fondaparinux Sodium 2.5 MG/0.5 ML SYRINGE SC SCH (05:50)
[2020-05-18] MEDS: Mometasone 200 MCG/Formoterol 5 MCG 120 PUFF INHALER INH SCH ×2 (06:37→18:18)
--- NOTE | 2020-05-18 06:54 | PDOC.FM ---
- Subjective Subjective: Tis morning upon entry to room pt was being set up for CXR and he began to cough and an air leak was very audible. O2 saturation was not reading and then picked up 70's%. Respiratory therapy was called to the room, moved the ET tube fro 24 to 25 at the lips as previously documented, and cuff inflated. PT's O2 sats recovered to low 90's after interventions were made. CXR does nto show much change. Tmax on 07/17 100.8 Tmax 97.9 overnight. Sony and Gab are in agreement that pt may need trach and peg tube soon. discussions with family on continued care vs comfort care. Family still wants to continue care. - Objective MAR Reviewed: Yes Vital Signs & Weight: Vital Signs (12 hours) Temp Pulse Resp BP Pulse Ox 05/18/20 06:38 96 05/18/20 06:00 30 H 05/18/20 05:00 97.6 F 05/18/20 04:00 34 H 05/18/20 02:38 95 147/85 H 05/18/20 02:00 26 H 05/18/20 01:00 97.8 F 05/18/20 00:00 25 H 05/17/20 22:37 106 H 102/65 05/17/20 22:00 26 H 05/17/20 20:00 97.9 F 31 H 05/17/20 19:47 92 L Weight Admit Weight 89.358 kg Weight 84.1 kg Most Recent Monitor Data Heart Rate from ECG 100 NIBP 82/53 NIBP BP-Mean 62 Respiration from ECG 17 SpO2 92 I&O: 05/16/20 05/17/20 05/18/20 06:59 06:59 06:59 Intake Total 2061 1735.6 1882.8 Output Total 1470 3136 1550 Balance 591 -1400.4 332.8 Result Diagrams: 05/18/20 07:50 05/18/20 07:50 Phys Exam - Physical Examination intubated and sedated on propofol 11 HEENT: moist MMs, sclera anicteric Neck: supple Respiratory: no wheezing, no rales, no rhonchi, clear to auscultation bilateral Cardiovascular: RRR, no significant murmur Gastrointestinal: soft, no distention, positive bowel sounds Musculoskeletal: pulses present, edema present Skin: no rash, normal turgor Dx/Plan (1) Acute respiratory failure with hypoxia Code(s): J96.01 - ACUTE RESPIRATORY FAILURE WITH HYPOXIA Status: Acute (2) Pneumonia due to COVID-19 virus Code(s): U07.1 - COVID-19; J12.89 - OTHER VIRAL PNEUMONIA Status: Acute (3) HLD (hyperlipidemia) Code(s): E78.5 - HYPERLIPIDEMIA, UNSPECIFIED Status: Acute (4) Diabetes mellitus type 2 in obese Code(s): E11.69 - TYPE 2 DIABETES MELLITUS WITH OTHER SPECIFIED COMPLICATION; E66.9 - OBESITY, UNSPECIFIED Status: Acute - Plan Plan: #Acute Hypoxic Resp failure 07/26 COVID PNA (+ on 04/22) #Sepsis - Patient's steroids increased to 40mg methylprednisolone Q6H 04/25, decreased to BID 05/05, Albuterol PRN - Received Conv plasma and remdesivir X5 doses. ID consulted. - Patient intubated 05/05 due to respiratory fatigue; tolerated the procedure well - Pulm consulted. conv plasma, remdesivir, added doxycycline 04/25-05/05. Cefepime 05/05-05/16. - Started cefepime and vanc on 05/06 for possible HAP. D/c vanc on 04/30 due to neg blood cxc. Cefepime d/c's on 05/16. - Started tube feeds 05/07 @ 22, Dietary consulted to assist with nutritional needs - Lovenox d/c'd on 05/09 and switched to Fondaparinox due to severe thrombocytopenia. Anti Xa levels continue to be in therapeutic range of enoxaparin and many studies show similarities in anti Xa levels. - IV protonix for stress ulcer prevention - Daily discussions with family; family updated before and after intubation 05/05, agreeable with the plan of care. DNR status since 05/11, per . - CXR remains stable diffuse infiltrates, with intermittent pnuemomediastinum with resorption every few days. - Prone for 18 hr of day, supine for other 6 hr. for X2 days (05/10-), per Dr. Gab dominguez. Tolerated 2 days, no further proning. - contact, airborne and droplet precautions d/c'd 05/12. Added vitamin D per tube. - levophed d/c 05/14 - on dulera inhaler BID, no pulmicort inhaler on formulary. inorder to proved pulmicort it would be a neb and pt would have to disconnected from PEEP briefly. This risk is not one family wants to take. explained ot family that dulera ICS provides similar treatment benefits. #Concern for hospital acquired pna -procal has down trended. Procal on 05/18: 0.26 -started on vancomycin and cefepime 05/06. Vanc D/c'd on 05/10. Cefepime d/c's on 05/16. #Thrombocytopenia, improving -patients platelets dropped from 126>76>62, and again to 56 on 05/09, --> 77 on 05/11, 72 on 05/12. 113 on 05/13. 62 on 05/14. 67 on 05/15. 76 on 05/16. 90 on 05/17. - D/C'd lovenox and started fondaparinox due to side effect profile not causing as much thrombocytopenia. - anti X a levels in therapeutic range. continue current dose 5 mg SC daily fundaparinox and monitor renal function. #Hyperkalemia, improved - K 5.8, gave amp D50 and 10 units IV insulin on 05/11. - 5.3 on 05/12. 4.8 on 05/13. 4.6 on 05/14. 4.7 on 05/16. 4.4 on 05/17. - trend daily. #UTI-improved -urine 05/06 demonstrated 250LE, 1+ bacteria. urine ccx: yeast 25-50k. -patient started on vancomycin and cefepime 05/06 for concern for hospital acquired pna. Vand d/c'd 05/10. Cefepime d/c'd on 05/16. #DM Type 2 - Hold home meds - Hypoglycemia protocol - [facility] glucose checks - Lantus added to regimen 04/27 as blood glucose elevated, likely 2/2 steroids - goal bg 140-180 as in hospital. #HTN - holding home meds, Valsartan due to lower bp's #HLD - Continue home meds DVTppx: Fondaparinox 5 mg SC daily Pressor support: off of levophed Diet: Tube feeds @ 22ml/hr PCP: Melvin Code status: DNR, per with care goal meeting 05/11 with palliative care team.
--- NOTE | 2020-05-18 07:40 | RAD ---
EXAM: Portable chest PROVIDED CLINICAL HISTORY: Respiratory insufficiency COMPARISON: 05/17/2020 FINDINGS: Significant interval change with respect to the prior examination is not apparent. IMPRESSION: As above.
[2020-05-18 08:03] LABS: #Eosinphils 0.3 thou/uL (0.0-0.7); #Lymphocytes 0.7 thou/uL (1.20-3.40); #Monocytes 0.2 thou/uL (0.11-0.59); %Basophils 0.4 % (0.0-1.0); %Eosinophils 4.1 % (0.0-10.0); %Lymphocytes 10.2 % (21.0-51.0); %Monocytes 3.2 % (0.0-10.0); %Neutrophils 82.2 % (42.0-75.0); Hemoglobin 12.7 g/dL (14.0-18.0); Mean Corpuscular HGB CONC 32.5 g/dL (32.0-36.0); Mean Corpuscular Hemoglobin 32.2 pg (27.0-31.0); Mean Corpuscular Volume 99.1 fL (78.0-98.0); Mean Platelet Volume 9.4 fL (7.4-10.4); Platelet Count 112 thou/uL (130-400); RBC Distribution Width 14.4 % (11.5-14.5); Red Blood Cell (RBC) Count 3.95 mill/uL (4.70-6.10); White Blood Cell (WBC) Count 7.3 thou/uL (4.8-10.8)
[2020-05-18 08:27] LABS: Anion Gap 15 mmol/L (10-20); BUN (Urea Nitrogen) 33 mg/dL (8.4-25.7); Calc. Creatinine Clearance 112 mL/min (70-130); Calcium 8.6 mg/dL (7.8-10.44); Carbon Dioxide 34 mmol/L (23-31); Chloride 98 mmol/L (98-107); Glucose 134 mg/dL (83-110); Potassium 4.6 mmol/L (3.5-5.1); Sodium 142 mmol/L (136-145)
[2020-05-18] MEDS: Propofol 1,000 MG/100 ML VIAL IV PRN ×2 (08:33→17:39)
[2020-05-18] MEDS: Fish Oil 1,000 MG CAP PO SCH (08:39)
[2020-05-18] MEDS: Calcium Carbonate 600 MG + Vit D TAB PO SCH (08:39)
[2020-05-18] MEDS: methylPREDNISolone Sod Succ 40 MG VIAL IVP SCH ×2 (08:40→20:59)
[2020-05-18] MEDS: Pantoprazole 40 MG VIAL IVP SCH (08:40)
[2020-05-18] MEDS: Cholecalciferol (Vitamin D3) 400 UNITS TAB PO SCH (08:43)
--- NOTE | 2020-05-18 09:31 | RAD ---
AP SUPINE PORTABLE CHEST: Date: 05/18/2020 INDICATION: COVID pneumonia. COMPARISON: 05/18/2020. FINDINGS/IMPRESSION: ET tube and NG tube remain in place. Bilateral diffuse hazy interstitial and alveolar infiltrates are seen throughout both lungs, not significantly changed from film at 0733 hours. POS: AH
--- NOTE | 2020-05-18 09:31 | PRG ---
DATE OF SERVICE: 05/18/2020 SUBJECTIVE: This morning, remains encephalopathic in the ICU, this is day #24. OBJECTIVE: VITAL SIGNS: Temperature is 99, pulse 96, respiratory rate 30, 60% FiO2, sats were running anyway from 90% to 95%, blood pressure 80/58. CHEST: Bilateral rhonchi, crackles. CARDIAC: Normal S1, S2. No gallops. ABDOMEN: Soft. NEUROLOGIC: Obtunded. LABORATORY DATA: White count 7000. Lytes are normal. His chest x-ray appears stable, small pneumomediastinum. ASSESSMENT AND PLAN: Respiratory failure, juan positive pneumonia, prolonged intubation. Discussed with family extubation versus trach and PEG, comfort care. All his antibiotics were discontinued. We are in the process of trying to consider comfort care, if possible. One-half hour of critical care time. Job ID: [id number]
[2020-05-18] MEDS: Insulin Glargine 25 UNITS in Pre-Filled Syringe 1 EACH SC SCH (10:19)
--- NOTE | 2020-05-18 10:33 | PRG ---
DATE OF SERVICE: 05/18/2020 Mr. Aguilar remains on the ventilator. His family will have a meeting tomorrow to discuss his long-term care given his very poor outlook. Job ID: [id number]
--- NOTE | 2020-05-18 10:44 | PDOC.BPN ---
- Brief Progress Note I took over this patients care on 05/09/20 through 05/18/20. The pt was intubated on 05/05 after respiratory decompensation from COVID-19 pneumonia, and transferred [facility] after being on HFNC. He has received convalescent plasma, remdesivir, and daily inhaled and IV steroids. The pt was on antibiotics from 05/05-05/16 Cefepime, and was on Vanc for about [address] Helton, [employer] has been managing this pt's critical care in the ICU. He has shown minimal improvement with the interventions, and palliative care team is consulted. Tmax on 05/17 100.8 F, collect blood cultures with any fevers. After being on the vent for about 2-3 weeks family will needs to make a decision on continued care (trach and peg tube), vs transitioning the pt to comfort care measures. Palliative care team helping with these conversations and daily discussions have been held with Son Casimiro and . Transition of care note, as I will be passing this pt on to another physician on the FMR service. -Elmira Aiken DO, PGY-2
[2020-05-18] MEDS: fentaNYL Citrate/PF 2,000 MCG in Sodium Chloride 0.9% 60 ML IV SCH (10:55)
[2020-05-18] MEDS: HumaLOG 300 UNITS/3 ML VIAL SC PRN ×2 (15:44→20:59)
[2020-05-18] MEDS: Simvastatin 5 MG TAB PO SCH (20:59)
[2020-05-18] MEDS: Lorazepam 2 MG/ML VIAL SLOW IVP PRN (23:04)
[2020-05-19] MEDS: fentaNYL Citrate/PF 2,000 MCG in Sodium Chloride 0.9% 60 ML IV SCH ×2 (01:10→22:31)
[2020-05-19] MEDS: Lorazepam 2 MG/ML VIAL SLOW IVP PRN ×2 (04:10→21:25)
[2020-05-19] MEDS: Propofol 1,000 MG/100 ML VIAL IV PRN ×3 (04:10→21:09)
[2020-05-19 04:13] LABS: Anion Gap 12 mmol/L (10-20); BUN (Urea Nitrogen) 32 mg/dL (8.4-25.7); Calc. Creatinine Clearance 126 mL/min (70-130); Calcium 8.5 mg/dL (7.8-10.44); Carbon Dioxide 35 mmol/L (23-31); Chloride 97 mmol/L (98-107); Glucose 241 mg/dL (83-110); Potassium 4.8 mmol/L (3.5-5.1); Sodium 139 mmol/L (136-145)
[2020-05-19] MEDS: HumaLOG 300 UNITS/3 ML VIAL SC PRN ×3 (04:25→20:13)
[2020-05-19 05:10] LABS: #Lymphocytes 0.4 thou/uL (1.20-3.40); #Monocytes 0.2 thou/uL (0.11-0.59); #Neutrophils 5.1 thou/uL (1.40-6.50); %Basophils 0.1 % (0.0-1.0); %Eosinophils 0.8 % (0.0-10.0); %Lymphocytes 6.3 % (21.0-51.0); %Monocytes 3.4 % (0.0-10.0); %Neutrophils 89.4 % (42.0-75.0); Hemoglobin 11.7 g/dL (14.0-18.0); Mean Corpuscular HGB CONC 33.3 g/dL (32.0-36.0); Mean Corpuscular Hemoglobin 32.7 pg (27.0-31.0); Mean Corpuscular Volume 98.1 fL (78.0-98.0); Mean Platelet Volume 8.9 fL (7.4-10.4); Platelet Count 106 thou/uL (130-400); RBC Distribution Width 14.1 % (11.5-14.5); Red Blood Cell (RBC) Count 3.56 mill/uL (4.70-6.10); White Blood Cell (WBC) Count 5.7 thou/uL (4.8-10.8)
[2020-05-19] MEDS: Fondaparinux Sodium 2.5 MG/0.5 ML SYRINGE SC SCH (05:19)
[2020-05-19] MEDS: Albuterol 200 PUFF (6.7GM INHALER) INH SCH ×4 (08:07→23:50)
[2020-05-19] MEDS: Mometasone 200 MCG/Formoterol 5 MCG 120 PUFF INHALER INH SCH ×2 (08:08→18:19)
[2020-05-19 08:11] LABS: Actual Bicarbonate (HCO3a) 33.1 mEq/L (22-28); Base Excess (BEa) 7.9 mEq/L (-2.0 to +3.0); CO2 Tension 48.9 mmHg (35.0-45.0); Calcium, Ionized (arterial) 1.14 mmol/L (1.12-1.30); Carboxyhemoglobin (COHb) 3.1 gm% (0.0-3.0); Potassium - ABG Lab 4.06 mmol/L (3.70-5.30); pH, Arterial 7.45 (7.35-7.45)
[2020-05-19 08:14] LABS: ALV-art Gradient 353.725 mmHg (0-20); O2 Tension (PaO2), arterial 48.6 mmHg (> 70.0); Puncture Site RRA
[2020-05-19] MEDS: Fish Oil 1,000 MG CAP PO SCH (08:54)
[2020-05-19] MEDS: Calcium Carbonate 600 MG + Vit D TAB PO SCH (08:54)
[2020-05-19] MEDS: Cholecalciferol (Vitamin D3) 400 UNITS TAB PO SCH (08:54)
[2020-05-19] MEDS: Pantoprazole 40 MG VIAL IVP SCH (08:55)
--- NOTE | 2020-05-19 08:56 | RAD ---
SINGLE VIEW OF THE CHEST: COMPARISON: 05/18/2020. HISTORY: Multifocal pneumonia/COVID pneumonia. FINDINGS: A single view of the chest shows a cardiomediastinal silhouette which is upper limits of normal in si ze. The endotracheal tube and NG tube are unchanged in position. There are stable multifocal scatte red opacities in the lungs. No pneumothorax is seen. IMPRESSION: Stable multifocal infiltrates. POS: EAA
[2020-05-19] MEDS: methylPREDNISolone Sod Succ 40 MG VIAL IVP SCH ×2 (08:57→20:12)
[2020-05-19] MEDS ORDERED: Insulin Glargine 27 UNITS in Pre-Filled Syringe 1 EACH SC SCH (09:00)
--- NOTE | 2020-05-19 09:59 | PRG ---
DATE OF SERVICE: 05/19/2020 SUBJECTIVE: Clifton Aguilar remains intubated on the vent, day 26 in the hospital, but about 12 on the vent. OBJECTIVE: VITAL SIGNS: Temperature 98, pulse 77, sats 95% on a bilevel, low PEEP of 11, 60% FiO2. CHEST: Rhonchi, crackles. CARDIAC: Sinus tach. ABDOMEN: Soft. NEUROLOGIC: Unresponsive. LABORATORY DATA: White count 5000, H and H of 11 and 36, platelet count is 106. PO2 is 48, pCO2 of 48, pH 7.45, and saturations on the monitor are 95%. X-rays unchanged, diffuse infiltrates. ASSESSMENT AND PLAN: Duncan positive pneumonia, respiratory failure, acute respiratory distress syndrome, encephalopathy. Family is going to make a decision regarding trach and a PEG early next week. In the meantime, we would need to continue him on steroids. He is off all antibiotics. One-half hour of critical time. Job ID: [id number]
--- NOTE | 2020-05-19 11:11 | PDOC.FM ---
- Subjective Subjective: Patient remained stable on vent overnight. Remains sedated with propofol. - Objective MAR Reviewed: Yes Vital Signs & Weight: Vital Signs (12 hours) Temp Pulse Resp BP Pulse Ox 05/19/20 10:33 98 05/19/20 10:00 26 H 05/19/20 08:08 87 05/19/20 08:00 27 H 05/19/20 07:21 95 05/19/20 07:00 98.8 F 05/19/20 06:00 23 H 05/19/20 04:00 98.5 F 27 H 05/19/20 02:24 85 127/73 05/19/20 02:00 27 H 05/19/20 00:00 98.4 F 85 34 H 90/58 L Weight Admit Weight 89.358 kg Weight 82.9 kg Most Recent Monitor Data Heart Rate from ECG 90 NIBP 129/71 NIBP BP-Mean 90 Respiration from ECG 27 SpO2 89 I&O: 05/18/20 05/19/20 05/20/20 06:59 06:59 06:59 Intake Total 1882.8 1723.6 Output Total 1550 1657 240 Balance 332.8 66.6 -240 Result Diagrams: 05/19/20 03:34 05/19/20 03:34 Phys Exam - Physical Examination Constitutional: NAD intubated & sedated HEENT: moist MMs Neck: supple Respiratory: no wheezing, no rhonchi Cardiovascular: RRR, no significant murmur Gastrointestinal: soft, non-tender mild edema in RUE remains sedated with propofol Skin: no rash, normal turgor Dx/Plan (1) Acute respiratory failure with hypoxia Code(s): J96.01 - ACUTE RESPIRATORY FAILURE WITH HYPOXIA Status: Acute (2) Diabetes mellitus type 2 in obese Code(s): E11.69 - TYPE 2 DIABETES MELLITUS WITH OTHER SPECIFIED COMPLICATION; E66.9 - OBESITY, UNSPECIFIED Status: Acute (3) HLD (hyperlipidemia) Code(s): E78.5 - HYPERLIPIDEMIA, UNSPECIFIED Status: Acute (4) Pneumonia due to COVID-19 virus Code(s): U07.1 - COVID-19; J12.89 - OTHER VIRAL PNEUMONIA Status: Acute - Plan Plan: #Acute Hypoxic Resp failure 2/2 COVID PNA (+ on 04/22) #Sepsis - Patient intubated on 05/05 due to respiratory fatigue, day #14 on ventilatory support with little improvement or signs of successful extubation. - Pulm, Dr. Helton, & ID, Dr. Cardoza, on board, appreciate recs. Patient is s/p conv plasma & remdesivir x5 doses. added doxycycline 04/25-05/05. Cefepime 05/05- 05/16. - Continue methylprednisolone 40mg BID, Albuterol PRN, & dulera BID per pulm recs. - Started tube feeds 05/07 @ 22, Dietary on board to assist with nutritional needs - Lovenox d/c'd on 05/09 and switched to Fondaparinox due to concern for HIT. Anti Xa levels continue to be in therapeutic range of enoxaparin and many studies show similarities in anti Xa levels. - Continue IV protonix for stress ulcer prevention - CXR remains stable diffuse infiltrates, with intermittent pneumomediastinum with resorption every few days. - Prone for 18 hr of day, supine for other 6 hr. for X2 days (05/10-), per Dr. Helton recs. Tolerated 2 days, no further proning. - contact, airborne and droplet precautions d/c'd 05/12. - Given prolonged ventilator dependence and no signs of significant clinical improvement without continued respiratory support, will attempt to set up in person family meeting to discuss plan of care moving forward ANA M as options at this point include trach & PEG placement vs. extubation with likely transition to hospice care. DNR status since 05/11, per . #Concern for hospital acquired pna -procal has down trended. Procal on 05/18: 0.26 -started on vancomycin and cefepime 05/06. Vanc D/c'd on 05/10. Cefepime d/c's on 05/16. #Thrombocytopenia, improving -patients platelets dropped from 126>76>62, and again to 56 on 05/09, --> 77 on 05/11, 72 on 05/12. 113 on 05/13. 62 on 05/14. 67 on 05/15. 76 on 05/16. 90 on 05/17. 106 on 05/19. - D/C'd lovenox and started fondaparinox due to side effect profile not causing as much thrombocytopenia. - anti X a levels in therapeutic range. continue current dose 5 mg SC daily fundaparinox and monitor renal function. #Hyperkalemia, resolved - K 5.8, gave amp D50 and 10 units IV insulin on 05/11. - 5.3 on 05/12. 4.8 on 05/13. 4.6 on 05/14. 4.7 on 05/16. 4.4 on 05/17. 4.8 05/19. - trend daily. #UTI-improved -urine 05/06 demonstrated 250LE, 1+ bacteria. urine ccx: yeast 25-50k. -patient started on vancomycin and cefepime 05/06 for concern for hospital acquired pna. Vand d/c'd 05/10. Cefepime d/c'd on 05/16. #DM Type 2 - Hold home meds - Hypoglycemia protocol - [facility]S glucose checks - Lantus added to regimen 04/27 as blood glucose elevated, likely 2/2 steroids. Increased to 27U today. - goal bg 140-180 as in hospital. #HTN - holding home Valsartan due to lower bp's. Will resume as tolerated. #HLD - Continue home meds DVTppx: Fondaparinox 5 mg SC daily GI PPX: protonix IV Pressor support: None Diet: Tube feeds @ 22ml/hr PCP: Melvin Code status: DNR, per with care goal meeting 05/11 with palliative care team. Dispo: Will try to coordinate in person family meeting with myself & PC to discuss plan of care moving forward. Addendum - Attending - Attending Attestation Date/Time: 05/19/20 2334 I personally evaluated the patient and discussed the management with Dr. Garcia. I agree with the History, Examination, Assessment and Plan documented above with any addition or exceptions noted below. Patient continues on steroids. He remains on the vent. Family will be making decisions on possible trach.
[2020-05-19] MEDS: Simvastatin 5 MG TAB PO SCH (20:12)
[2020-05-20] MEDS: Fondaparinux Sodium 2.5 MG/0.5 ML SYRINGE SC SCH (05:06)
[2020-05-20] MEDS: HumaLOG 300 UNITS/3 ML VIAL SC PRN ×2 (05:42→16:09)
[2020-05-20] MEDS: Propofol 1,000 MG/100 ML VIAL IV PRN ×2 (05:44→16:09)
--- NOTE | 2020-05-20 06:31 | PDOC.FM ---
- Subjective Subjective: NAEO. Patient's prognosis & medical status remain unchanged. Remains stable on the vent with sedation with propofol. - Objective MAR Reviewed: Yes Vital Signs & Weight: Vital Signs (12 hours) Temp Pulse Resp BP Pulse Ox 05/20/20 06:00 26 H 05/20/20 04:00 23 H 05/20/20 03:00 98.9 F 05/20/20 02:08 86 95/64 05/20/20 02:00 28 H 05/20/20 00:00 27 H 05/19/20 23:51 83 103/65 05/19/20 23:00 98.4 F 05/19/20 22:11 82 90/59 L 05/19/20 22:00 28 H 05/19/20 20:00 27 H 05/19/20 19:27 95 05/19/20 19:00 98.6 F Weight Admit Weight 89.358 kg Weight 85.2 kg Most Recent Monitor Data Heart Rate from ECG 84 NIBP 105/63 NIBP BP-Mean 77 Respiration from ECG 21 SpO2 99 I&O: 05/18/20 05/19/20 05/20/20 06:59 06:59 06:59 Intake Total 1882.8 1723.6 1457 Output Total 1550 1657 1345 Balance 332.8 66.6 112 Result Diagrams: 05/20/20 06:18 05/20/20 06:18 Radiology Reviewed by me: Yes (CXR with stable multifocal infiltrates) Phys Exam - Physical Examination Constitutional: NAD HEENT: moist MMs Neck: supple, full ROM Respiratory: no wheezing coarse breath sounds in B/L anterior chest Cardiovascular: RRR, no significant murmur Musculoskeletal: edema present (mild edema in RUE containing IV lines) sedated Skin: no rash Dx/Plan (1) Acute respiratory failure with hypoxia Code(s): J96.01 - ACUTE RESPIRATORY FAILURE WITH HYPOXIA Status: Acute (2) Diabetes mellitus type 2 in obese Code(s): E11.69 - TYPE 2 DIABETES MELLITUS WITH OTHER SPECIFIED COMPLICATION; E66.9 - OBESITY, UNSPECIFIED Status: Acute (3) HLD (hyperlipidemia) Code(s): E78.5 - HYPERLIPIDEMIA, UNSPECIFIED Status: Acute (4) Pneumonia due to COVID-19 virus Code(s): U07.1 - COVID-19; J12.89 - OTHER VIRAL PNEUMONIA Status: Acute - Plan Plan: #Acute Hypoxic Resp failure 2/ COVID PNA (+ on 04/22) #Sepsis - Patient intubated on 05/05 due to respiratory fatigue, day #14 on ventilatory support with little improvement or signs of successful extubation. - Pulm, Dr. Helton, & ID, Dr. Cardoza, on board, appreciate recs. Patient is s/p conv plasma & remdesivir x5 doses. added doxycycline 04/25-05/05. Cefepime 05/05- 05/16. - Continue methylprednisolone 40mg BID, Albuterol PRN, & dulera BID per pulm recs. - Started tube feeds 05/07 @ 22, Dietary on board to assist with nutritional needs - Lovenox d/c'd on 05/09 and switched to Fondaparinox due to concern for HIT. Anti Xa levels continue to be in therapeutic range of enoxaparin and many studies show similarities in anti Xa levels. - Continue IV protonix for stress ulcer prevention - CXR remains stable diffuse infiltrates, with intermittent pneumomediastinum with resorption every few days. - Prone for 18 hr of day, supine for other 6 hr. for X2 days (05/10-), per Dr. Helton recs. Tolerated 2 days, no further proning. - contact, airborne and droplet precautions d/c'd 05/12. - Given prolonged ventilator dependence and no signs of significant clinical improvement without continued respiratory support, will attempt to set up in person family meeting to discuss plan of care moving forward ANA M as options at this point include trach & PEG placement vs. extubation with likely transition to hospice care. DNR status since 05/11, per . #Concern for hospital acquired pna -procal has down trended. Procal on 05/18: 0.26 -started on vancomycin and cefepime 05/06. Vanc D/c'd on 05/10. Cefepime d/c's on 05/16. #Thrombocytopenia -patients platelets dropped from 126>76>62, and again to 56 on 05/09. Down to 87 this AM from 106 yesterday. - Will continue fondaparinox due to side effect profile not causing as much thr ombocytopenia as lovenox. - anti X a levels in therapeutic range. #Hyperkalemia, resolved - K 5.8, gave amp D50 and 10 units IV insulin on 05/11. - 5.3 on 05/12 presentation but has downtrended & remained stable since. - trend daily. #UTI-improved -urine 05/06 demonstrated 250LE, 1+ bacteria. urine ccx: yeast 25-50k. -patient started on vancomycin and cefepime 05/06 for concern for hospital acquired pna. Vand d/c'd 05/10. Cefepime d/c'd on 05/16. #DM Type 2 - Hold home meds - Hypoglycemia protocol - [facility] glucose checks - Lantus added to regimen as blood glucose remains elevated, likely 2/2 steroids. Increased to 35U today. - goal bg 140-180 as in hospital. #HTN - holding home Valsartan due to lower bp's. Will resume as tolerated. #HLD - Continue home meds DVTppx: Fondaparinox 5 mg SC daily GI PPX: protonix IV Pressor support: None Diet: Tube feeds PCP: Melvin Code status: DNR, per with care goal meeting 05/11 with palliative care team. Dispo: Per & nurse on 05/19, plan to [facility] a family meeting with primary team and palliative care in person on Wednesday 05/23 to finalize plan going forward including extubation with CC vs. extubation with trach & PEG tube placement. Addendum - Attending - Attending Attestation Date/Time: 05/20/20 0227 I personally evaluated the patient and discussed the management with Dr. Garcia. I agree with the History, Examination, Assessment and Plan documented above with any addition or exceptions noted below. Patient remains on the vent. Family is deciding on trach/peg early next week. He remains on steroids.
[2020-05-20 06:45] LABS: Anion Gap 14 mmol/L (10-20); BUN (Urea Nitrogen) 26 mg/dL (8.4-25.7); Calc. Creatinine Clearance 132 mL/min (70-130); Calcium 8.3 mg/dL (7.8-10.44); Carbon Dioxide 32 mmol/L (23-31); Chloride 98 mmol/L (98-107); Glucose 184 mg/dL (83-110); Potassium 4.5 mmol/L (3.5-5.1); Sodium 139 mmol/L (136-145)
[2020-05-20 06:56] LABS: Band 16 % (5-11); Hemoglobin 11.6 g/dL (14.0-18.0); Hypochromia SLIGHT = 6-15 cells (100X) (0-5/hpf); Lymphocytes 8 % (21-51); MDiff Complete? YES; Mean Corpuscular HGB CONC 32.8 g/dL (32.0-36.0); Mean Corpuscular Hemoglobin 32.3 pg (27.0-31.0); Mean Corpuscular Volume 98.4 fL (78.0-98.0); Mean Platelet Volume 9.5 fL (7.4-10.4); Monocytes 18 % (0-10); Neutrophil 58 % (42-75); Platelet Count 85 thou/uL (130-400); Platelet Morphology Comment Appears Decreased; White Blood Cell (WBC) Count 4.7 thou/uL (4.8-10.8)
[2020-05-20] MEDS: Albuterol 200 PUFF (6.7GM INHALER) INH SCH ×4 (07:07→23:39)
[2020-05-20] MEDS: Mometasone 200 MCG/Formoterol 5 MCG 120 PUFF INHALER INH SCH ×2 (07:07→18:28)
[2020-05-20 07:22] LABS: Base Excess (BEa) 8.8 mEq/L (-2.0 to +3.0); CO2 Tension 55.8 mmHg (35.0-45.0); Calcium, Ionized (arterial) 1.11 mmol/L (1.12-1.30); Carboxyhemoglobin (COHb) 2.4 gm% (0.0-3.0); Potassium - ABG Lab 3.85 mmol/L (3.70-5.30); pH, Arterial 7.42 (7.35-7.45)
[2020-05-20 07:23] LABS: Puncture Site LRA
--- NOTE | 2020-05-20 08:22 | RAD ---
EXAM: Single view of the chest HISTORY: Covid pneumonia COMPARISON: 05/19/2020 FINDINGS: Single view of the chest shows an enlarged but stable cardiomediastinal silhouette. The li valentin and tubes are unchanged in position. There are stable multifocal mixed opacities. No acute osseous abnormality. IMPRESSION: Stable multifocal infiltrates
[2020-05-20] MEDS: Pantoprazole 40 MG VIAL IVP SCH (08:25)
[2020-05-20] MEDS: Calcium Carbonate 600 MG + Vit D TAB PO SCH (08:25)
[2020-05-20] MEDS: Fish Oil 1,000 MG CAP PO SCH (08:25)
[2020-05-20] MEDS: methylPREDNISolone Sod Succ 40 MG VIAL IVP SCH ×2 (08:25→20:57)
[2020-05-20] MEDS: Cholecalciferol (Vitamin D3) 400 UNITS TAB PO SCH (08:25)
[2020-05-20] MEDS ORDERED: Insulin Glargine 35 UNITS in Pre-Filled Syringe 1 EACH SC SCH (09:00)
--- NOTE | 2020-05-20 11:07 | PRG ---
DATE OF SERVICE: 05/20/2020 SUBJECTIVE: The patient remains intubated on mechanical ventilation. He is sedated. Spoke with his at the bedside. OBJECTIVE: VITAL SIGNS: Temperature 98.8, pulse 80, blood pressure 114/79, O2 saturation 96%. GENERAL: He is on propofol and fentanyl for sedation. He is requiring no vasopressors. 24-hour intake 1528, output 1345. His weight is 187 pounds. His admission weight was 197. HEENT: Unremarkable. NECK: No adenopathy or JVD. LUNGS: Coarse breath sounds. CARDIAC: S1, S2. Regular. ABDOMEN: Soft. EXTREMITIES: Edematous. LABORATORY DATA: White blood cell count 4.7, hematocrit 35.4, and platelet count 85, pH 7.42, pCO2 of 55, PO2 of 53 on bilevel, rate 20, high-pressure 29, low-pressure 11, FiO2 55%. Chest x-ray continues to show bilateral infiltrates. ASSESSMENT: 1. COVID-19 pneumonia. 2. Acute respiratory failure requiring mechanical ventilation. 3. Diabetes mellitus. PLAN: 1. The patient will need tracheostomy and PEG tube hopefully early next week if his O2 saturation and PEEP levels look appropriate. 2. I will decrease his steroid dose. 3. I have added vitamin D, vitamin C, and zinc to his regimen. Job ID: [id number]
[2020-05-20] MEDS: fentaNYL Citrate/PF 2,000 MCG in Sodium Chloride 0.9% 60 ML IV SCH (17:09)
[2020-05-20] MEDS: Simvastatin 5 MG TAB PO SCH (20:57)
[2020-05-21 05:34] LABS: #Eosinphils 0.1 thou/uL (0.0-0.7); #Lymphocytes 0.4 thou/uL (1.20-3.40); #Monocytes 0.3 thou/uL (0.11-0.59); #Neutrophils 3.7 thou/uL (1.40-6.50); %Lymphocytes 8.1 % (21.0-51.0); %Monocytes 5.8 % (0.0-10.0); Hemoglobin 11.1 g/dL (14.0-18.0); Mean Corpuscular HGB CONC 32.3 g/dL (32.0-36.0); Mean Corpuscular Hemoglobin 31.1 pg (27.0-31.0); Mean Corpuscular Volume 96.4 fL (78.0-98.0); Mean Platelet Volume 8.7 fL (7.4-10.4); Platelet Count 147 thou/uL (130-400); RBC Distribution Width 14.2 % (11.5-14.5); Red Blood Cell (RBC) Count 3.56 mill/uL (4.70-6.10); White Blood Cell (WBC) Count 4.4 thou/uL (4.8-10.8)
[2020-05-21 05:56] LABS: Anion Gap 11 mmol/L (10-20); BUN (Urea Nitrogen) 26 mg/dL (8.4-25.7); Calc. Creatinine Clearance 130 mL/min (70-130); Calcium 8.3 mg/dL (7.8-10.44); Carbon Dioxide 35 mmol/L (23-31); Chloride 98 mmol/L (98-107); Glucose 122 mg/dL (83-110); Potassium 3.9 mmol/L (3.5-5.1); Sodium 140 mmol/L (136-145)
[2020-05-21] MEDS: Mometasone 200 MCG/Formoterol 5 MCG 120 PUFF INHALER INH SCH ×2 (07:08→18:43)
[2020-05-21] MEDS: Albuterol 200 PUFF (6.7GM INHALER) INH SCH ×4 (07:08→23:33)
[2020-05-21 07:23] LABS: Actual Bicarbonate (HCO3a) 30.3 mEq/L (22-28); Analyzer IN Cardio ER; Base Excess (BEa) 5.7 mEq/L (-2.0 to +3.0); CO2 Tension 43.8 mmHg (35.0-45.0); Calcium, Ionized (arterial) 1.16 mmol/L (1.12-1.30); Carboxyhemoglobin (COHb) 2.8 gm% (0.0-3.0); Hemoglobin (Hb) 14.6 g/dL (14.0-18.0); Potassium - ABG Lab 3.83 mmol/L (3.70-5.30); pH, Arterial 7.46 (7.35-7.45)
[2020-05-21 07:26] LABS: O2 Tension (PaO2), arterial 44.9 mmHg (> 70.0)
[2020-05-21 07:27] LABS: Puncture Site LRA
--- NOTE | 2020-05-21 07:50 | PDOC.FM ---
- Subjective Subjective: NAEO. Patient remains stable in the ventilator and receiving some sedation with propofol. Attempted to wean FiO2 yesterday to 55% and patient did not tolerate it. Back up to 60% this AM and satting in low 90s. - Objective MAR Reviewed: Yes Vital Signs & Weight: Vital Signs (12 hours) Temp Pulse Resp BP Pulse Ox 05/21/20 07:19 90 L 05/21/20 07:08 87 129/104 H 05/21/20 07:00 98.8 F 05/21/20 06:00 28 H 05/21/20 05:00 98.6 F 05/21/20 04:00 100.1 F H 23 H 05/21/20 02:26 96 149/83 H 05/21/20 02:00 25 H 05/21/20 00:00 98.5 F 27 H 05/20/20 23:39 77 122/66 05/20/20 22:00 91 28 H 124/65 05/20/20 20:00 99.2 F 33 H 93 L Weight Admit Weight 89.358 kg Weight 82.7 kg Most Recent Monitor Data Heart Rate from ECG 95 NIBP 129/104 NIBP BP-Mean 112 Respiration from ECG 23 SpO2 94 I&O: 05/20/20 05/21/20 05/22/20 06:59 06:59 06:59 Intake Total 1528.3 1475.3 Output Total 1345 2170 45 Balance 183.3 -694.7 -45 Result Diagrams: 05/21/20 03:50 05/21/20 03:50 Radiology Reviewed by me: Yes (stable B/L infiltrates) Phys Exam - Physical Examination Constitutional: NAD intubated & sedated HEENT: moist MMs Neck: supple, full ROM Respiratory: no wheezing coarse breath sounds in B/L anterior lobes Cardiovascular: RRR, no significant murmur Gastrointestinal: soft, no distention, positive bowel sounds Musculoskeletal: edema present (mild edema in RUE) sedated with propofol Deviation from normal: sedated with propofol Skin: no rash Dx/Plan (1) Acute respiratory failure with hypoxia Code(s): J96.01 - ACUTE RESPIRATORY FAILURE WITH HYPOXIA Status: Acute (2) Diabetes mellitus type 2 in obese Code(s): E11.69 - TYPE 2 DIABETES MELLITUS WITH OTHER SPECIFIED COMPLICATION; E66.9 - OBESITY, UNSPECIFIED Status: Acute (3) HLD (hyperlipidemia) Code(s): E78.5 - HYPERLIPIDEMIA, UNSPECIFIED Status: Acute (4) Pneumonia due to COVID-19 virus Code(s): U07.1 - COVID-19; J12.89 - OTHER VIRAL PNEUMONIA Status: Acute - Plan Plan: #Acute Hypoxic Resp failure 2/2 COVID PNA (+ on 04/22) #Sepsis (resolved) - Patient intubated on 05/05 due to respiratory fatigue, day #15 on ventilatory support with little improvement or signs of successful extubation. - Pulmonology & ID, on board, appreciate recs. Patient is s/p conv plasma & remdesivir x5 doses. Added doxycycline 04/25-05/05. Cefepime 05/05-05/16. - Continue methylprednisolone 40mg BID, Albuterol PRN, & dulera BID per pulm recs. - Started tube feeds 05/07. Dietary on board to assist with nutritional needs - Lovenox d/c'd on 05/09 and switched to Fondaparinox due to concern for HIT. Anti Xa levels continue to be in therapeutic range of enoxaparin and many studies show similarities in anti Xa levels. - Continue IV protonix for stress ulcer prevention - CXR remains stable showing diffuse infiltrates, with intermittent pneumomediastinum with resorption every few days. - Prone for 18 hr of day, supine for other 6 hr X2 days (05/10-), per Dr. Helton recbjorn. Tolerated 2 days, no further proning. - contact, airborne and droplet precautions d/c'd 05/12. - Given prolonged ventilator dependence and no signs of significant clinical improvement without continued respiratory support, will attempt to set up in person family meeting to discuss plan of care moving forward for Saturday, 05/23, as options at this point include trach & PEG placement vs. extubation with likely transition to hospice care. DNR status since 05/11, per . #Metabolic alkalosis -Will start daily diamox since bicarb up to 35 this AM. #Concern for hospital acquired pna -procal has down trended. Procal on 05/18: 0.26 -started on vancomycin and cefepime 05/06. Vanc D/c'd on 05/10. Cefepime d/c's on 05/16. -Tmax of 100.1F overnight. Will continue to monitor closely. #Thrombocytopenia -patients platelets dropped from 126>76>62, and again to 56 on 05/09. Will continue to trend daily. Level up to 187 this AM. - Will continue fondaparinox due to side effect profile not causing as much thrombocytopenia as lovenox. - anti X a levels in therapeutic range. #Hyperkalemia, resolved - K 5.8, gave amp D50 and 10 units IV insulin on 05/11. - 5.3 on 05/12 presentation but has downtrended & remained stable since. - trend daily. #UTI-improved -urine 05/06 demonstrated 250LE, 1+ bacteria. urine ccx: yeast 25-50k. -patient started on vancomycin and cefepime 05/06 for concern for hospital acquired pna. Vand d/c'd 05/10. Cefepime d/c'd on 05/16. #DM Type 2 - Hold home meds - Hypoglycemia protocol - [facility] glucose checks - Lantus added to regimen as blood glucose remains elevated, likely 2/2 steroids. Decreased to 30U today as low/below goal yesterday. - goal bg 140-180 as in hospital. #HTN - BPs elevated yesterday & this AM. Will resume low dose JUAN-I for now as valsartan not on formulary. #HLD - Continue home meds DVTppx: Fondaparinox 5 mg SC daily GI PPX: protonix IV Pressor support: None Diet: Tube feeds PCP: Melvin Code status: DNR, per with care goal meeting 05/11 with palliative care te am. Dispo: Per & nurse on 05/19, plan to [place] a family meeting with primary team and palliative care in person on Wednesday 05/23 to finalize plan going forward including extubation with CC vs. extubation with trach & PEG tube placement.
[2020-05-21] MEDS: AcetaZOLAMIDE 250 MG TAB PER TUBE SCH (08:47)
[2020-05-21] MEDS: Ascorbic Acid 500 mg Chewable Tablet PER TUBE SCH (08:47)
[2020-05-21] MEDS: Calcium Carbonate 600 MG + Vit D TAB PO SCH (08:47)
[2020-05-21] MEDS: Cholecalciferol 1,000 UNITS (25 MCG) TAB PER TUBE SCH (08:49)
[2020-05-21] MEDS: Lisinopril 5 MG TAB PER TUBE SCH (08:50)
[2020-05-21] MEDS: Pantoprazole 40 MG VIAL IVP SCH (08:50)
[2020-05-21] MEDS: Fish Oil 1,000 MG CAP PO SCH (08:50)
[2020-05-21] MEDS: methylPREDNISolone Sod Succ 40 MG VIAL IVP SCH ×2 (08:50→20:09)
[2020-05-21] MEDS ORDERED: Insulin Glargine 30 UNITS in Pre-Filled Syringe 1 EACH SC SCH (09:00)
[2020-05-21] MEDS ORDERED: Lisinopril 5 MG TAB PO SCH (09:00)
--- NOTE | 2020-05-21 09:17 | RAD ---
Portable frontal chest radiograph: 05/21/2020 COMPARISON: 05/20/2020 HISTORY: Covid positive patient FINDINGS: Stable endotracheal tube and nasogastric tube. Stable coarse diffuse interstitial and alveo lar opacities bilaterally with a basilar predominance, left greater than right. IMPRESSION: No significant interval change.
[2020-05-21] MEDS: Zinc Sulfate 220 MG CAP PER TUBE SCH (09:20)
[2020-05-21] MEDS: fentaNYL Citrate/PF 2,000 MCG in Sodium Chloride 0.9% 60 ML IV SCH (10:56)
[2020-05-21] MEDS: Acetaminophen 325 MG TAB PO PRN (12:03)
--- NOTE | 2020-05-21 13:24 | PRG ---
DATE OF SERVICE: 05/21/2020 Please see the note done by which I agree. The patient was seen, evaluated, discussed with the residents by bedside. Basically, unfortunately Mr. Aguilar has been in the hospital now for almost 4 weeks, intubated for extended period of time from his COVID pneumonia. He has needed high oxygen and is still desaturating. Needing high PEEP as well. Very poor prognosis. Sounds like when sedation is weaned, he is just more agitated and not purposeful. So right now, I will continue supportive care and eventually in discussion with family, it sounds like Palliative Care has set up a family meeting on the to discuss possible terminal extubation versus trach and PEG placement. Job ID: [id number]
[2020-05-21] MEDS: Propofol 1,000 MG/100 ML VIAL IV PRN ×2 (15:00→21:19)
--- NOTE | 2020-05-21 15:54 | PRG ---
DATE OF SERVICE: 05/21/2020 SUBJECTIVE: Clifton Aguilar remains mechanically ventilated. He is febrile today. Cultures were drawn. Chest x-ray shows diffuse alveolar infiltrates bilaterally that are unchanged. OBJECTIVE: LUNGS: Remarkable for coarse equal breath sounds. HEART: Regular rhythm. ABDOMEN: Soft. EXTREMITIES: Without asymmetry. LABORATORY DATA: White count 4.4, hemoglobin 11.1, and platelets 147. Electrolytes are normal. BUN 26, creatinine 0.59. PH 7.46, CO2 of 43, pO2 of 44, still on bilevel at a rate of 20, FiO2 of 60, 29/11. IMPRESSION: COVID pneumonia with severe adult respiratory distress syndrome/diffuse alveolar damage, making very slow progress we will continue with critical care. He is 28 days into the hospitalization. Job ID: [id number]
[2020-05-21] MEDS: Simvastatin 5 MG TAB PO SCH (20:08)
[2020-05-22] MEDS: Propofol 1,000 MG/100 ML VIAL IV PRN ×4 (02:15→23:15)
[2020-05-22 04:04] LABS: #Eosinphils 0.1 thou/uL (0.0-0.7); #Lymphocytes 0.3 thou/uL (1.20-3.40); #Monocytes 0.2 thou/uL (0.11-0.59); %Eosinophils 2.6 % (0.0-10.0); %Lymphocytes 7.4 % (21.0-51.0); %Monocytes 5.2 % (0.0-10.0); %Neutrophils 84.8 % (42.0-75.0); Hemoglobin 11.3 g/dL (14.0-18.0); Mean Corpuscular HGB CONC 32.9 g/dL (32.0-36.0); Mean Corpuscular Hemoglobin 31.8 pg (27.0-31.0); Mean Corpuscular Volume 96.5 fL (78.0-98.0); Mean Platelet Volume 8.4 fL (7.4-10.4); Platelet Count 142 thou/uL (130-400); RBC Distribution Width 14.2 % (11.5-14.5); Red Blood Cell (RBC) Count 3.55 mill/uL (4.70-6.10); White Blood Cell (WBC) Count 4.7 thou/uL (4.8-10.8)
[2020-05-22 04:22] LABS: Anion Gap 13 mmol/L (10-20); BUN (Urea Nitrogen) 25 mg/dL (8.4-25.7); Calc. Creatinine Clearance 128 mL/min (70-130); Calcium 8.1 mg/dL (7.8-10.44); Carbon Dioxide 28 mmol/L (23-31); Chloride 99 mmol/L (98-107); Glucose 164 mg/dL (83-110); Potassium 4.1 mmol/L (3.5-5.1); Sodium 136 mmol/L (136-145)
[2020-05-22] MEDS: Mometasone 200 MCG/Formoterol 5 MCG 120 PUFF INHALER INH SCH ×2 (04:51→18:37)
[2020-05-22] MEDS: Albuterol 200 PUFF (6.7GM INHALER) INH SCH ×3 (04:51→18:38)
--- NOTE | 2020-05-22 05:28 | PDOC.FM ---
- Subjective Subjective: Patient fevered up to 103.1 yesterday afternoon. Blood cultures drawn & no fever since. Will obtain urine cultures today. Remains intubated & sedated still requiring 60% FiO2 to maintain sats. - Objective MAR Reviewed: Yes Vital Signs & Weight: Vital Signs (12 hours) Temp Pulse Resp BP Pulse Ox 05/22/20 04:51 92 113/61 05/22/20 04:00 32 H 05/22/20 02:07 84 100/60 05/22/20 02:00 31 H 05/22/20 00:00 98.3 F 28 H 05/21/20 23:34 97 103/64 05/21/20 22:00 30 H 05/21/20 20:58 91 89/63 L 05/21/20 20:00 98.2 F 30 H 100 05/21/20 18:45 100 94/52 L 05/21/20 18:00 98.3 F 32 H Weight Admit Weight 89.358 kg Weight 84.2 kg Most Recent Monitor Data Heart Rate from ECG 90 NIBP 106/57 NIBP BP-Mean 73 Respiration from ECG 22 SpO2 94 I&O: 05/20/20 05/21/20 05/22/20 06:59 06:59 06:59 Intake Total 1528.3 1475.3 852 Output Total 1345 2170 1980 Balance 183.3 -694.7 -1128 Result Diagrams: 05/22/20 03:20 05/22/20 03:20 Radiology Reviewed by me: Yes (slight improvement of B/L diffuse infiltrates) Phys Exam - Physical Examination Constitutional: NAD remains intubated & sedated Neck: supple Respiratory: no wheezing coarse breath sounds in B/L anterior lung hahn Cardiovascular: RRR, no significant murmur Gastrointestinal: soft, no distention, positive bowel sounds Musculoskeletal: edema present (mild edema in RUE from IV lines) remains sedated on ventilator Dx/Plan (1) Acute respiratory failure with hypoxia Code(s): J96.01 - ACUTE RESPIRATORY FAILURE WITH HYPOXIA Status: Acute (2) Diabetes mellitus type 2 in obese Code(s): E11.69 - TYPE 2 DIABETES MELLITUS WITH OTHER SPECIFIED COMPLICATION; E66.9 - OBESITY, UNSPECIFIED Status: Acute (3) HLD (hyperlipidemia) Code(s): E78.5 - HYPERLIPIDEMIA, UNSPECIFIED Status: Acute (4) Pneumonia due to COVID-19 virus Code(s): U07.1 - COVID-19; J12.89 - OTHER VIRAL PNEUMONIA Status: Acute - Plan Plan: #Acute Hypoxic Resp failure 2/2 COVID PNA (+ on 04/22) #Sepsis (resolved) - Patient intubated on 05/05 due to respiratory fatigue, day #17 on ventilatory support with little improvement or signs of successful extubation. - Pulmonology & ID, on board, appreciate recs. Patient is s/p conv plasma & remdesivir x5 doses. Added doxycycline 04/25-05/05. Cefepime 05/05-05/16. - Patient fevered again yesterday around 1200. Blood cultures redrawn but no abx started yet. Urine Cx to be collected this AM. Will continue to monitor & resume BS abx if refevers. - Continue methylprednisolone 40mg BID, Albuterol PRN, & dulera BID per pulm recs. - Started tube feeds 05/07. Dietary on board to assist with nutritional needs - Lovenox d/c'd on 05/09 and switched to Fondaparinox due to concern for HIT. Anti Xa levels continue to be in therapeutic range of enoxaparin and many studies show similarities in anti Xa levels. - Continue IV protonix for stress ulcer prevention - CXR remains stable showing diffuse infiltrates, with intermittent pneumomediastinum with resorption every few days. - Prone for 18 hr of day, supine for other 6 hr X2 days (05/10-), per Dr. Helton recs. Tolerated 2 days, no further proning. - contact, airborne and droplet precautions d/c'd 05/12. - Given prolonged ventilator dependence and no signs of significant clinical improvement without continued respiratory support, will attempt to set up in person family meeting to discuss plan of care moving forward for Saturday, 05/23, as options at this point include trach & PEG placement vs. extubation with katarina zeng transition to hospice care. DNR status since 05/11, per . #Metabolic alkalosis, resolved -s/p diamox yesteday & serum bicarb now down to 28 this AM. #Thrombocytopenia, resolved - Plts 164 this AM. - Will continue fondaparinox due to side effect profile not causing as much thrombocytopenia as lovenox. - anti X a levels in therapeutic range. #Hyperkalemia, resolved - K 5.8, gave amp D50 and 10 units IV insulin on 05/11. - 5.3 on 05/12 presentation but has downtrended & remained stable since. - trend daily. #UTI-improved -urine 05/06 demonstrated 250LE, 1+ bacteria. urine ccx: yeast 25-50k. -patient started on vancomycin and cefepime 05/06 for concern for hospital acquired pna which also covered this infection. Cx ultimately grew only yeast. #DM Type 2 - Hold home meds - Hypoglycemia protocol - ACHS glucose checks - Lantus added to regimen as blood glucose remains elevated, likely 2/2 steroids. Decreased to 28U today as low/below goal yesterday. - goal bg 140-180 as in hospital. #HTN - Will resume low dose JUAN-I as BPs WNLs yesterday. #HLD - Continue home meds DVTppx: Fondaparinox 5 mg SC daily GI PPX: protonix IV Pressor support: None Diet: Tube feeds PCP: Melvin Code status: DNR, per with care goal meeting 05/11 with palliative care team. Dispo: Per & nurse on 05/19, plan to TERESA a family meeting with primary team and palliative care in person on Wednesday 05/23 to finalize plan going forward including extubation with CC vs. extubation with trach & PEG tube placement.
[2020-05-22] MEDS: fentaNYL Citrate/PF 2,000 MCG in Sodium Chloride 0.9% 60 ML IV SCH (06:24)
--- NOTE | 2020-05-22 08:57 | RAD ---
PORTABLE CHEST 1 VIEW: Date: 05/22/2020 Time: 0425 hours HISTORY: Respiratory failure, COVID pneumonia. FINDINGS/IMPRESSION: No significant interval change is seen since the previous day's exam. POS: THERESA
[2020-05-22 09:32] LABS: Actual Bicarbonate (HCO3a) 29.7 mEq/L (22-28); Base Excess (BEa) 5.3 mEq/L (-2.0 to +3.0); CO2 Tension 42.8 mmHg (35.0-45.0); Calcium, Ionized (arterial) 1.16 mmol/L (1.12-1.30); Carboxyhemoglobin (COHb) 2.7 gm% (0.0-3.0); Hemoglobin (Hb) 11.9 g/dL (14.0-18.0); pH, Arterial 7.46 (7.35-7.45)
[2020-05-22 09:33] LABS: O2 Tension (PaO2), arterial 44.5 mmHg (> 70.0); Puncture Site LRA
[2020-05-22] MEDS: methylPREDNISolone Sod Succ 40 MG VIAL IVP SCH ×2 (09:39→21:23)
[2020-05-22] MEDS: Insulin Glargine 28 UNITS in Pre-Filled Syringe 1 EACH SC SCH (09:40)
[2020-05-22] MEDS: Ascorbic Acid 500 mg Chewable Tablet PER TUBE SCH (09:41)
[2020-05-22] MEDS: AcetaZOLAMIDE 250 MG TAB PER TUBE SCH (09:41)
[2020-05-22] MEDS: Cholecalciferol 1,000 UNITS (25 MCG) TAB PER TUBE SCH (09:41)
[2020-05-22] MEDS: Fish Oil 1,000 MG CAP PO SCH (09:41)
[2020-05-22] MEDS: Zinc Sulfate 220 MG CAP PER TUBE SCH (09:41)
[2020-05-22] MEDS: Lisinopril 5 MG TAB PER TUBE SCH (09:42)
[2020-05-22] MEDS: Calcium Carbonate 600 MG + Vit D TAB PO SCH (09:42)
[2020-05-22] MEDS: Pantoprazole 40 MG VIAL IVP SCH (09:59)
--- NOTE | 2020-05-22 10:49 | PRG ---
DATE OF SERVICE: 05/22/2020 Please see the note from Dr. Pily Garcia, for which I agree. The patient was seen, evaluated, discussed, and examined with the residents. Yesterday, the patient spiked 103 fever. Blood cultures were ordered by Pulmonary and are still pending. Not on antibiotics. So, FiO2 still at 0.6, although still only saturating at 90% on the ventilator. So very poor prognosis. They were going to be able to get him off the ventilator considering how long he has been intubated now. It sounds like family is going to have discussion with primary team tomorrow about considering trach and PEG feeds versus the possibility of terminal extubation likely in hospice care. Obviously, prognosis is extremely poor. Job ID: [id number]
--- NOTE | 2020-05-22 15:27 | PRG ---
DATE OF SERVICE: 05/22/2020 SUBJECTIVE: Mr. Aguilar remains in the Critical Care Unit. OBJECTIVE: VITAL SIGNS: Blood pressure 128/78, heart rate is 107, respiratory rates in the 20s, oximetry is in the low 90s. LUNGS: Remarkable for coarse equal breath sounds. HEART: Regular rhythm. ABDOMEN: Soft. EXTREMITIES: Without asymmetry. LABORATORY DATA: White count 4.7, hemoglobin 11.3, platelets 142. Electrolytes are normal. Creatinine is 0.6. pH 7.46, CO2 of 42, PO2 of 44, FiO2 is still at 60, still on bilevel 21/06. IMPRESSION: Respiratory failure. He needs a tracheostomy once gas exchanges a little bit better, but it may be appropriate to go ahead and try to do the tracheostomy care in the near future. Family wants that. Family meeting this week will help determine whether or not we move forward with tracheostomy and PEG versus supportive care and comfort measures. Job ID: [id number]
[2020-05-22] MEDS: HumaLOG 300 UNITS/3 ML VIAL SC PRN (16:27)
[2020-05-22] MEDS: Simvastatin 5 MG TAB PO SCH (21:23)
[2020-05-23] MEDS: Albuterol 200 PUFF (6.7GM INHALER) INH SCH ×4 (00:12→18:48)
[2020-05-23] MEDS: Lorazepam 2 MG/ML VIAL SLOW IVP PRN ×2 (00:32→22:06)
[2020-05-23] MEDS: fentaNYL Citrate/PF 2,000 MCG in Sodium Chloride 0.9% 60 ML IV SCH ×2 (02:04→23:35)
[2020-05-23 04:15] LABS: #Basophils 0.1 thou/uL (0.0-0.2); #Eosinphils 0.1 thou/uL (0.0-0.7); #Lymphocytes 0.3 thou/uL (1.20-3.40); #Monocytes 0.2 thou/uL (0.11-0.59); #Neutrophils 4.4 thou/uL (1.40-6.50); %Basophils 1.6 % (0.0-1.0); %Eosinophils 1.4 % (0.0-10.0); %Lymphocytes 5.3 % (21.0-51.0); %Monocytes 4.6 % (0.0-10.0); %Neutrophils 87.1 % (42.0-75.0); Hemoglobin 11.2 g/dL (14.0-18.0); Mean Corpuscular HGB CONC 32.8 g/dL (32.0-36.0); Mean Corpuscular Hemoglobin 31.5 pg (27.0-31.0); Mean Corpuscular Volume 95.9 fL (78.0-98.0); Mean Platelet Volume 8.5 fL (7.4-10.4); Platelet Count 148 thou/uL (130-400); RBC Distribution Width 14.2 % (11.5-14.5); Red Blood Cell (RBC) Count 3.55 mill/uL (4.70-6.10); White Blood Cell (WBC) Count 5.1 thou/uL (4.8-10.8)
[2020-05-23 04:59] LABS: Anion Gap 12 mmol/L (10-20); BUN (Urea Nitrogen) 23 mg/dL (8.4-25.7); Calc. Creatinine Clearance 128 mL/min (70-130); Calcium 8.2 mg/dL (7.8-10.44); Carbon Dioxide 29 mmol/L (23-31); Chloride 101 mmol/L (98-107); Glucose 198 mg/dL (83-110); Potassium 4.4 mmol/L (3.5-5.1); Sodium 138 mmol/L (136-145)
[2020-05-23] MEDS: HumaLOG 300 UNITS/3 ML VIAL SC PRN ×2 (06:01→16:31)
[2020-05-23] MEDS: Propofol 1,000 MG/100 ML VIAL IV PRN ×2 (06:36→16:06)
[2020-05-23 07:20] LABS: Actual Bicarbonate (HCO3a) 27.8 mEq/L (22-28); Base Excess (BEa) 1.6 mEq/L (-2.0 to +3.0); CO2 Tension 50.4 mmHg (35.0-45.0); Calcium, Ionized (arterial) 1.17 mmol/L (1.12-1.30); Carboxyhemoglobin (COHb) 2.6 gm% (0.0-3.0); Hemoglobin (Hb) 11.9 g/dL (14.0-18.0); pH, Arterial 7.36 (7.35-7.45)
[2020-05-23 07:21] LABS: O2 Tension (PaO2), arterial 52.9 mmHg (> 70.0); Puncture Site RRA
--- NOTE | 2020-05-23 07:56 | PDOC.FM ---
- Subjective Subjective: No new events per RN. Intubated and sedated. - Objective MAR Reviewed: Yes Vital Signs & Weight: Vital Signs (12 hours) Temp Pulse Resp BP 05/23/20 06:00 34 H 05/23/20 04:00 99.2 F 24 H 05/23/20 02:26 103 H 90/56 L 05/23/20 02:00 22 H 05/23/20 00:13 88 134/86 05/23/20 00:00 40 H 05/22/20 23:18 98.2 F 05/22/20 22:00 33 H 05/22/20 21:59 99 106/71 05/22/20 20:00 98.2 F 33 H Weight Admit Weight 89.358 kg Weight 82.3 kg Most Recent Monitor Data Heart Rate from ECG 111 NIBP 93/67 NIBP BP-Mean 75 Respiration from ECG 19 SpO2 96 I&O: 05/22/20 05/23/20 05/24/20 06:59 06:59 06:59 Intake Total 1575 1694 Output Total 9372 1839 35 Balance -455 -141 -35 Result Diagrams: 05/23/20 04:00 05/23/20 04:00 Radiology Reviewed by me: Yes Phys Exam - Physical Examination Constitutional: NAD Intubated and sedated. HEENT: moist MMs Neck: no nodes Respiratory: no wheezing, clear to auscultation bilateral Cardiovascular: RRR, no significant murmur Gastrointestinal: soft Musculoskeletal: edema present Skin: normal turgor Dx/Plan (1) Diabetes mellitus type 2 in obese Code(s): E11.69 - TYPE 2 DIABETES MELLITUS WITH OTHER SPECIFIED COMPLICATION; E66.9 - OBESITY, UNSPECIFIED Status: Acute (2) HLD (hyperlipidemia) Code(s): E78.5 - HYPERLIPIDEMIA, UNSPECIFIED Status: Acute (3) Pneumonia due to COVID-19 virus Code(s): U07.1 - COVID-19; J12.89 - OTHER VIRAL PNEUMONIA Status: Acute (4) Acute respiratory failure with hypoxia Code(s): J96.01 - ACUTE RESPIRATORY FAILURE WITH HYPOXIA Status: Acute - Plan Plan: Acute Hypoxic Resp failure 2/2 COVID PNA (+ on 04/22) #Sepsis (resolved) - Patient intubated on 05/05 due to respiratory fatigue, day #18 on ventilatory support with little improvement or signs of successful extubation. - Pulmonology & ID, on board, appreciate recs. Patient is s/p conv plasma & remdesivir x5 doses. Added doxycycline 04/25-05/05. Cefepime 05/05-05/16. - Continue methylprednisolone 40mg BID, Albuterol PRN, & dulera BID per pulm recs. - Started tube feeds 05/07. Dietary on board to assist with nutritional needs - Lovenox d/c'd on 05/09 and switched to Fondaparinox due to concern for HIT. Anti Xa levels continue to be in therapeutic range of enoxaparin and many osman dies show similarities in anti Xa levels. - Continue IV protonix for stress ulcer prevention - CXR remains stable showing diffuse infiltrates, with intermittent pneumomediastinum with resorption every few days. - Prone for 18 hr of day, supine for other 6 hr X2 days (05/10-), per Dr. Helton recbjorn. Tolerated 2 days, no further proning. - contact, airborne and droplet precautions d/c'd 05/12. - Given prolonged ventilator dependence and no signs of significant clinical improvement without continued respiratory support, family meeting scheduled for 05/23 @ 1600. DNR status since 05/11, per . Metabolic alkalosis, resolved Thrombocytopenia, resolved - Will continue fondaparinox due to side effect profile not causing as much thrombocytopenia as lovenox. Hyperkalemia, resolved UTI-improved -urine 05/06 demonstrated 250LE, 1+ bacteria. urine ccx: yeast 25-50k. -patient started on vancomycin and cefepime 05/06 for concern for hospital acquired pna which also covered this infection. Cx ultimately grew only yeast. DM Type 2 - Hold home meds - Hypoglycemia protocol - [facility] glucose checks - Lantus added to regimen as blood glucose remains elevated, likely 2/2 steroids. Decreased to 28U today as low/below goal yesterday. - goal bg 140-180 as in hospital. HTN - Will resume low dose JUAN-I as BPs WNLs HLD - Continue home meds DVTppx: Fondaparinox 5 mg SC daily GI PPX: protonix IV Pressor support: None Diet: Tube feeds PCP: Melvin Code status: DNR, per with care goal meeting 05/11 with palliative care team. Dispo: Stable in CCU. Prognosis poor. Family meeting today.
[2020-05-23] MEDS: Mometasone 200 MCG/Formoterol 5 MCG 120 PUFF INHALER INH SCH ×2 (07:59→18:50)
--- NOTE | 2020-05-23 08:41 | RAD ---
PORTABLE CHEST: Date: 05/23/2020 INDICATION: COVID pneumonia. CCU follow-up. COMPARISON: 05/22/2020. FINDINGS/IMPRESSION: ET tube and NG tube in place. Hazy bilateral diffuse infiltrates show no significant interval change. POS: OFF
[2020-05-23] MEDS: Insulin Glargine 28 UNITS in Pre-Filled Syringe 1 EACH SC SCH (09:26)
[2020-05-23] MEDS: Cholecalciferol 1,000 UNITS (25 MCG) TAB PER TUBE SCH (09:26)
[2020-05-23] MEDS: Ascorbic Acid 500 mg Chewable Tablet PER TUBE SCH (09:26)
[2020-05-23] MEDS: methylPREDNISolone Sod Succ 40 MG VIAL IVP SCH ×2 (09:26→21:05)
[2020-05-23] MEDS: Calcium Carbonate 600 MG + Vit D TAB PO SCH (09:27)
[2020-05-23] MEDS: Lisinopril 5 MG TAB PER TUBE SCH (09:27)
[2020-05-23] MEDS: Fish Oil 1,000 MG CAP PO SCH (09:27)
[2020-05-23] MEDS: Zinc Sulfate 220 MG CAP PER TUBE SCH (09:27)
[2020-05-23] MEDS: AcetaZOLAMIDE 250 MG TAB PER TUBE SCH (09:28)
[2020-05-23] MEDS: Pantoprazole 40 MG VIAL IVP SCH (09:28)
[2020-05-23] MEDS: Micafungin 100 MG in Sodium Chloride 0.9% 100 ML IVPB SCH (10:38)
--- NOTE | 2020-05-23 10:55 | PRG ---
DATE OF SERVICE: 05/23/2020 Mr. Clifton Aguilar remains on the ventilator. He unfortunately developed a systemic yeast infection and we are beginning anti-yeast medications. We will also consult Infectious Disease. The family will have a meeting today about his long-term prognosis and care that may include tracheostomy and PEG tube. Job ID: [id number]
--- NOTE | 2020-05-23 13:20 | PRG ---
DATE OF SERVICE: 05/23/2020 SUBJECTIVE: Clifton Aguilar remains mechanically ventilated. His muscle mechanics are dyssynchronous suggesting a significant diaphragm weakness. OBJECTIVE: VITAL SIGNS: Heart rate is 106, blood pressure 134/72, FiO2 is 60, oximetry is in the mid 90s. LUNGS: Distant, clear. HEART: Regular rhythm. ABDOMEN: Soft. LABORATORY DATA: White count 5.1, hemoglobin 11.2, and platelets 148. Electrolytes are normal. IMPRESSION: COVID pneumonia with diffuse alveolar damage. His today's radiographs unchanged. If we are to continue an aggressive care, trach and a PEG would be the next step and then long-term acute care. I would anticipate that if he survives, he will be in the hospital for several more months. Job ID: [id number]
--- NOTE | 2020-05-23 17:11 | PDOC.PALPN ---
Palliative Progress Note - Subjective Intubated, mechanically ventilated. Chest x-ray remains unchanged. - Objective Vital Signs: Vital Signs - Most Recent Temp Pulse Resp BP Pulse Ox 98.9 F 114 H 20 110/72 96 05/23/20 16:00 05/23/20 14:56 05/23/20 16:00 05/23/20 14:56 05/23/20 07:54 - Physical Exam Constitutional: encephalitic, ill appearing HEENT: moist MMs Respiratory: no wheezing, diminished lung sound Cardiovascular: RRR Gastrointestinal: soft, non-tender Genitourinary: pretty catheter Musculoskeletal: no cyanosis, diffuse muscle atrophy Skin: fragile Deviation from normal: unable to determine orientation - Assessment (1) Palliative care encounter Code(s): Z51.5 - ENCOUNTER FOR PALLIATIVE CARE Current Visit: Yes Status: Acute (2) Acute respiratory failure with hypoxia Code(s): J96.01 - ACUTE RESPIRATORY FAILURE WITH HYPOXIA Current Visit: Yes Status: Acute (3) Pneumonia due to COVID-19 virus Code(s): U07.1 - COVID-19; J12.89 - OTHER VIRAL PNEUMONIA Current Visit: Yes Status: Acute - Plan Plan: Lengthy family meeting with Dr Aiken and patient , both sons, daughter all i n person and one daughter via phone. Discussed health status, and aggressive measures of Trach/Peg verses less aggressive measures and consideration of compassionate extubation. did state in conversation that Mr Aguilar would not desire a Trach/Peg, but that she was not giving up hope for his healing and recovery. Reviewed specifics of both. Family understanding of need for decision this evening 05/23/2020 or in the morning 05/24/2020. Emotional support and therapeutic listening. Spiritual care aware of family meeting and will follow up for additional support. [45] minutes spent on this encounter with >50% of the time in counseling and coordination of care. - ROS Non Response: due to endotracheal tube, due to mental status
[2020-05-23] MEDS: Simvastatin 5 MG TAB PO SCH (20:00)
[2020-05-24] MEDS: Acetaminophen 325 MG TAB PO PRN (00:09)
[2020-05-24] MEDS: Albuterol 200 PUFF (6.7GM INHALER) INH SCH ×4 (00:50→18:25)
[2020-05-24] MEDS: Propofol 1,000 MG/100 ML VIAL IV PRN ×3 (01:39→18:40)
[2020-05-24 05:11] LABS: #Eosinphils 0.1 thou/uL (0.0-0.7); #Lymphocytes 0.4 thou/uL (1.20-3.40); #Monocytes 0.3 thou/uL (0.11-0.59); #Neutrophils 5.3 thou/uL (1.40-6.50); %Eosinophils 1.1 % (0.0-10.0); %Lymphocytes 5.7 % (21.0-51.0); %Monocytes 5.3 % (0.0-10.0); %Neutrophils 87.8 % (42.0-75.0); Hemoglobin 11.7 g/dL (14.0-18.0); Mean Corpuscular HGB CONC 32.6 g/dL (32.0-36.0); Mean Corpuscular Hemoglobin 31.2 pg (27.0-31.0); Mean Corpuscular Volume 95.7 fL (78.0-98.0); Mean Platelet Volume 8.5 fL (7.4-10.4); Platelet Count 158 thou/uL (130-400); RBC Distribution Width 14.4 % (11.5-14.5); Red Blood Cell (RBC) Count 3.74 mill/uL (4.70-6.10); White Blood Cell (WBC) Count 6.1 thou/uL (4.8-10.8)
[2020-05-24 05:40] LABS: Anion Gap 13 mmol/L (10-20); BUN (Urea Nitrogen) 28 mg/dL (8.4-25.7); Calc. Creatinine Clearance 118 mL/min (70-130); Calcium 8.2 mg/dL (7.8-10.44); Carbon Dioxide 27 mmol/L (23-31); Chloride 103 mmol/L (98-107); Glucose 161 mg/dL (83-110); Sodium 139 mmol/L (136-145)
[2020-05-24] MEDS: Pantoprazole 40 MG VIAL IVP SCH (07:46)
[2020-05-24] MEDS: AcetaZOLAMIDE 250 MG TAB PER TUBE SCH (07:47)
[2020-05-24] MEDS: Lisinopril 5 MG TAB PER TUBE SCH (07:47)
[2020-05-24] MEDS: Cholecalciferol 1,000 UNITS (25 MCG) TAB PER TUBE SCH (07:47)
[2020-05-24] MEDS: Fish Oil 1,000 MG CAP PO SCH (07:48)
[2020-05-24] MEDS: Calcium Carbonate 600 MG + Vit D TAB PO SCH (07:48)
[2020-05-24] MEDS: Ascorbic Acid 500 mg Chewable Tablet PER TUBE SCH (07:48)
[2020-05-24] MEDS: Zinc Sulfate 220 MG CAP PER TUBE SCH (07:48)
[2020-05-24] MEDS: Mometasone 200 MCG/Formoterol 5 MCG 120 PUFF INHALER INH SCH ×2 (08:02→18:25)
--- NOTE | 2020-05-24 08:23 | RAD ---
EXAM: Chest one view: HISTORY: Follow-up Covid pneumonia COMPARISON: 05/23/2020 FINDINGS: Heart size: Within normal limits. Lungs: Progressive bilateral alveolar, groundglass, and interstitial opacity changes. No pleural effusion or pneumothorax. IMPRESSION: Progressive bilateral pulmonary opacities evidence for worsening Covid pneumonia.
[2020-05-24] MEDS: Micafungin 100 MG in Sodium Chloride 0.9% 100 ML IVPB SCH (08:28)
[2020-05-24] MEDS: Insulin Glargine 28 UNITS in Pre-Filled Syringe 1 EACH SC SCH (08:29)
[2020-05-24] MEDS: methylPREDNISolone Sod Succ 40 MG VIAL IVP SCH ×2 (08:34→22:07)
--- NOTE | 2020-05-24 08:58 | PDOC.FM ---
- Subjective Subjective: Stable condition this morning. Awaiting decision from family. - Objective MAR Reviewed: Yes Vital Signs & Weight: Vital Signs (12 hours) Temp Pulse Resp BP Pulse Ox 05/24/20 08:02 127 H 05/24/20 07:47 110 H 133/75 05/24/20 06:00 25 H 05/24/20 04:00 98.8 F 24 H 05/24/20 02:45 110 H 90/58 L 05/24/20 02:00 99.0 F 23 H 05/24/20 00:39 99.0 F 112 H 25 H 90/58 L 05/24/20 00:09 101.5 F H 126 H 35 H 132/78 05/24/20 00:00 101.5 F H 24 H 94 L 05/23/20 23:05 127 H 127/77 05/23/20 22:00 27 H Weight Admit Weight 89.358 kg Weight 78.3 kg Most Recent Monitor Data Heart Rate from ECG 123 NIBP 133/79 NIBP BP-Mean 97 Respiration from ECG 23 SpO2 93 I&O: 05/23/20 05/24/20 05/25/20 06:59 06:59 06:59 Intake Total 1694 1549 Output Total 1835 1535 Balance -141 14 Result Diagrams: 05/24/20 03:45 05/24/20 03:45 Radiology Reviewed by me: Yes (Progressively worsening COVID 19 PNA. ) Phys Exam - Physical Examination Constitutional: NAD Intubated and sedated. HEENT: moist MMs Neck: no nodes Diffuse crackles bilaterally. Cardiovascular: RRR, no significant murmur Gastrointestinal: soft Musculoskeletal: no edema Skin: no rash Dx/Plan (1) Diabetes mellitus type 2 in obese Code(s): E11.69 - TYPE 2 DIABETES MELLITUS WITH OTHER SPECIFIED COMPLICATION; E66.9 - OBESITY, UNSPECIFIED Status: Acute (2) HLD (hyperlipidemia) Code(s): E78.5 - HYPERLIPIDEMIA, UNSPECIFIED Status: Acute (3) Pneumonia due to COVID-19 virus Code(s): U07.1 - COVID-19; J12.89 - OTHER VIRAL PNEUMONIA Status: Acute (4) Acute respiratory failure with hypoxia Code(s): J96.01 - ACUTE RESPIRATORY FAILURE WITH HYPOXIA Status: Acute - Plan Plan: Acute Hypoxic Resp failure 2/2 COVID PNA (+ on 04/22) #Sepsis (resolved) - Patient intubated on 05/05 due to respiratory fatigue, day #19 on ventilatory support with little improvement or signs of successful extubation. - Pulmonology & ID, on board, appreciate recs. Patient is s/p conv plasma & remdesivir x5 doses. Added doxycycline 04/25-05/05. Cefepime 05/05-05/16. - Continue methylprednisolone 20mg BID, Albuterol PRN, & dulera BID per pulm recs. - Started tube feeds 05/07. Dietary on board to assist with nutritional needs - Lovenox d/c'd on 05/09 and switched to Fondaparinox due to concern for HIT. Anti Xa levels continue to be in therapeutic range of enoxaparin and many stud ies show similarities in anti Xa levels. - Continue IV protonix for stress ulcer prevention - CXR remains stable showing diffuse infiltrates, with intermittent pneumomediastinum with resorption every few days. - Prone for 18 hr of day, supine for other 6 hr X2 days (05/10-), per Dr. Sunitha dominguez. Tolerated 2 days, no further proning. - contact, airborne and droplet precautions d/c'd 05/12. - Given prolonged ventilator dependence and no signs of significant clinical improvement without continued respiratory support, family meeting scheduled for 05/23 @ 1600. DNR status since 05/11, per . Metabolic alkalosis, resolved Thrombocytopenia, resolved Hyperkalemia, resolved UTI, treated DM Type 2 - Hold home meds - Hypoglycemia protocol - A[facility]S glucose checks - Lantus added to regimen as blood glucose remains elevated, likely 2/2 steroids. Decreased to 28U today as low/below goal yesterday. - goal bg 140-180 as in hospital. HTN - Will resume low dose JUAN-I as BPs WNLs HLD - Continue home meds DVTppx: Fondaparinox 5 mg SC daily GI PPX: protonix IV Pressor support: None Diet: Tube feeds PCP: Melvin Erickson status: DNR, per with care goal meeting 05/11 with palliative care team. Dispo: Stable in CCU. Prognosis poor. Family meeting today. Addendum - Attending - Attending Attestation Date/Time: 05/24/20 1303 I personally evaluated the patient and discussed the management with Dr. Garcia. I agree with the History, Examination, Assessment and Plan documented above with any addition or exceptions noted below. Family meeting/decision today.
[2020-05-24] MEDS: Lorazepam 2 MG/ML VIAL SLOW IVP PRN (10:05)
--- NOTE | 2020-05-24 14:52 | PDOC.PALPN ---
Palliative Progress Note - Subjective Intubated, mechanical ventilation. Chest x-ray unchanged. Sedated. and daughter at bedside. - Objective Vital Signs: Vital Signs - Most Recent Temp Pulse Resp BP Pulse Ox 99.6 F 122 H 27 H 81/53 L 93 L 05/24/20 12:00 05/24/20 14:33 05/24/20 14:00 05/24/20 14:33 05/24/20 08:00 - Physical Exam Constitutional: encephalitic, ill appearing Deviation from normal: friable mucous membranes Deviation from normal: Bilaterally mildly adventicious Cardiovascular: no significant murmur, RRR Gastrointestinal: soft, non-tender, no distention, incontinent Genitourinary: pretty catheter Musculoskeletal: diffuse muscle atrophy Deviation from normal: sedated Skin: cap refill <2 seconds, fragile Deviation from normal: encephalopathic - Assessment (1) Palliative care encounter Code(s): Z51.5 - ENCOUNTER FOR PALLIATIVE CARE Current Visit: Yes Status: Acute (2) Acute respiratory failure with hypoxia Code(s): J96.01 - ACUTE RESPIRATORY FAILURE WITH HYPOXIA Current Visit: Yes Status: Acute (3) Pneumonia due to COVID-19 virus Code(s): U07.1 - COVID-19; J12.89 - OTHER VIRAL PNEUMONIA Current Visit: Yes Status: Acute - Plan Plan: and daughter at bedside. Requesting to meet with Dr Vega to again discuss prognosis and current health state. family to discuss and decide on Trach Peg verses compassionate extubtaion today. Communicated with Dr Vega and Dr Garcia. Spiritual care involved. Continue with emotional support and therapeutic listening as Goal of care is addressed. [25] minutes spent on this encounter with >50% of the time in counseling and coordination of care. - ROS Non Response: due to endotracheal tube, due to mental status
--- NOTE | 2020-05-24 17:16 | PRG ---
DATE OF SERVICE: 05/24/2020 SUBJECTIVE: Clifton Aguilar still has a minute volume of 20 L a minute. OBJECTIVE: VITAL SIGNS: Heart rate is 122, blood pressure is in the 80s. FiO2 is at 60. LUNGS: Unchanged. HEART: Unchanged. ABDOMEN: Unchanged. He still shows signs of profound muscle weakness with extremities and diaphragm. LABORATORY DATA: White count 6.1, hemoglobin 11.7, platelets 158. Electrolytes are normal. BUN 28, creatinine 0.6. I had a long meeting with family today. They are contemplating withdrawal of support. Main concern with the was suffering. I have explained that he is not. All agree that he would not want to go through another 1 to 2 months of care in the hospital or long-term care setting to recover to be marginally functional. At this point in time, given his work of breathing, his profound muscle weakness, and his ongoing lung complaints as well as his high minute volume requirements, I cannot see him getting better even with a tracheostomy for 3 to 4 weeks. Given the fact that he is fungemic which is likely related to his prolonged hospitalization and antimicrobial therapy as well as steroid use, it becomes less likely he will survive as well. They are contemplating withdrawal. He is a do not resuscitate patient now. Job ID: [id number]
--- NOTE | 2020-05-24 17:28 | PRG ---
DATE OF SERVICE: 05/24/2020 SUBJECTIVE: Mr. Aguilar continues to decline. He is hypotensive at the moment. The family was considering withdrawing care, but changed their mind at the last minute. He has developed Shahnaz fungemia, presumably Shahnaz albicans. Right now, his blood pressure is 69/50, is tachycardic, and O2 saturations are 93 and FiO2 is 60. Orotracheal intubation. He does not have any central lines. He has a Cuello catheter. His last chest x-ray without significant interval change with diffuse bilateral infiltrates. LABORATORY DATA: White cell count 6.1, hemoglobin 11.7, platelets 158 with 87% neutrophils. Creatinine 0.65. ASSESSMENT AND DISCUSSION: Type 2 diabetes, hypertension, severe COVID-19 pneumonia. This is a 33rd day of illness. The patient is on still methylprednisolone down to 20 mg b.i.d. He is on micafungin as well. The overall prognosis is poor, and he has already made DNR. We will go and switch him to Diflucan from micafungin. Job ID: [id number]
[2020-05-24] MEDS: Simvastatin 5 MG TAB PO SCH (21:45)
[2020-05-25] MEDS: Albuterol 200 PUFF (6.7GM INHALER) INH SCH ×2 (00:04→07:10)
[2020-05-25 04:14] LABS: #Lymphocytes 0.5 thou/uL (1.20-3.40); #Monocytes 0.2 thou/uL (0.11-0.59); #Neutrophils 7.3 thou/uL (1.40-6.50); %Basophils 0.1 % (0.0-1.0); %Eosinophils 0.5 % (0.0-10.0); %Lymphocytes 6.3 % (21.0-51.0); %Monocytes 2.9 % (0.0-10.0); %Neutrophils 90.2 % (42.0-75.0); Hemoglobin 11.3 g/dL (14.0-18.0); Mean Corpuscular HGB CONC 32.6 g/dL (32.0-36.0); Mean Corpuscular Hemoglobin 31.1 pg (27.0-31.0); Mean Corpuscular Volume 95.5 fL (78.0-98.0); Mean Platelet Volume 8.9 fL (7.4-10.4); Platelet Count 147 thou/uL (130-400); RBC Distribution Width 14.3 % (11.5-14.5); Red Blood Cell (RBC) Count 3.63 mill/uL (4.70-6.10); White Blood Cell (WBC) Count 8.1 thou/uL (4.8-10.8)
[2020-05-25] MEDS: Propofol 1,000 MG/100 ML VIAL IV PRN (04:18)
[2020-05-25 04:34] LABS: Anion Gap 14 mmol/L (10-20); BUN (Urea Nitrogen) 39 mg/dL (8.4-25.7); Calc. Creatinine Clearance 112 mL/min (70-130); Calcium 8.4 mg/dL (7.8-10.44); Carbon Dioxide 25 mmol/L (23-31); Chloride 105 mmol/L (98-107); Glucose 166 mg/dL (83-110); Potassium 4.1 mmol/L (3.5-5.1); Sodium 140 mmol/L (136-145)
[2020-05-25] MEDS: HumaLOG 300 UNITS/3 ML VIAL SC PRN (05:42)
[2020-05-25 05:59] VITALS: TEMP 97.8
[2020-05-25 06:34] VITALS: BMI 28.1
--- NOTE | 2020-05-25 06:59 | PDOC.FM ---
- Subjective Subjective: No major events overnight per RN. Family at bedside for compassionate extubation this morning. - Objective MAR Reviewed: Yes Vital Signs & Weight: Vital Signs (12 hours) Temp Pulse Resp BP 05/25/20 06:00 24 H 05/25/20 05:00 97.8 F 05/25/20 04:00 26 H 05/25/20 02:10 114 H 102/63 05/25/20 02:00 24 H 05/25/20 00:05 106 H 120/74 05/25/20 00:00 97.6 F 33 H 05/24/20 22:06 106 H 94/60 05/24/20 22:00 23 H 05/24/20 20:00 25 H 05/24/20 19:00 98.7 F Weight Admit Weight 89.358 kg Weight 81.5 kg Most Recent Monitor Data Heart Rate from ECG 104 NIBP 81/57 NIBP BP-Mean 65 Respiration from ECG 25 SpO2 99 I&O: 05/23/20 05/24/20 05/25/20 06:59 06:59 06:59 Intake Total 1694 1549 1494.4 Output Total 1835 1535 1091 Balance -141 14 403.4 Result Diagrams: 05/25/20 03:35 05/25/20 03:35 Radiology Reviewed by me: Yes Phys Exam - Physical Examination Constitutional: NAD HEENT: moist MMs Neck: no nodes Crackles diffusely. Tachycardic Gastrointestinal: soft Musculoskeletal: pulses present Dx/Plan (1) Diabetes mellitus type 2 in obese Code(s): E11.69 - TYPE 2 DIABETES MELLITUS WITH OTHER SPECIFIED COMPLICATION; E66.9 - OBESITY, UNSPECIFIED Status: Acute (2) HLD (hyperlipidemia) Code(s): E78.5 - HYPERLIPIDEMIA, UNSPECIFIED Status: Acute (3) Pneumonia due to COVID-19 virus Code(s): U07.1 - COVID-19; J12.89 - OTHER VIRAL PNEUMONIA Status: Acute (4) Acute respiratory failure with hypoxia Code(s): J96.01 - ACUTE RESPIRATORY FAILURE WITH HYPOXIA Status: Acute - Plan Plan: Per family meeting yesterday at 1800, plan is to compassionately extubate this morning at 0900 with family present. Will notify PC and spiritual care. Discussed at length expectations for extubation and that if he lingers, hospice may need to be consulted. The family is aware and does not want to involve hospice at this point in time. Scopolamine patch this morning to assist with secretions. Acute Hypoxic Resp failure 2/2 COVID PNA (+ on 04/22) #Sepsis (resolved) - Patient intubated on 05/05 due to respiratory fatigue, day #20 on ventilatory support with little improvement or signs of successful extubation. - Pulmonology & ID, on board, appreciate recs. Patient is s/p conv plasma & remdesivir x5 doses. Added doxycycline 04/25-05/05. Cefepime 05/05-05/16. - After much consideration, family has moved forward with palliative measures and desires compassionate extubation. Metabolic alkalosis, resolved Thrombocytopenia, resolved Hyperkalemia, resolved UTI, treated DM Type 2 HTN HLD Code: DNR Dispo: Plan for extubation today. Will transfer out of CCU if necessary. Addendum - Attending - Attending Attestation Date/Time: 05/25/20 [id number] I personally evaluated the patient and discussed the management with Dr. Hui. I agree with the History, Examination, Assessment and Plan documented above with any addition or exceptions noted below.
[2020-05-25] MEDS ORDERED: Scopolamine 1.5 mg/72 hour Patch TD SCH (07:00)
[2020-05-25] MEDS: Mometasone 200 MCG/Formoterol 5 MCG 120 PUFF INHALER INH SCH (07:10)
[2020-05-25 07:13] VITALS: BP 87/67
--- NOTE | 2020-05-25 08:04 | RAD ---
PORTABLE CHEST: HISTORY: COVID pneumonia followup. COMPARISON: 05/24/2020. FINDINGS/IMPRESSION: ET tube and NG tube remain in place. Diffuse bilateral interstitial and hazy alveolar infiltrates ar e again noted. No focal consolidation. Probable small effusions. No significant interval change. POS: AGW
[2020-05-25] MEDS ORDERED: Morphine 10 MG/ML VIAL SLOW IVP PRN (08:55)
[2020-05-25] MEDS: Lorazepam 2 MG/ML VIAL SLOW IVP PRN (08:56)
[2020-05-25] MEDS ORDERED: Fluconazole In NaCl,Iso-Osm 400 MG in Premix Bag 1 BAG IVPB SCH (09:00)
--- NOTE | 2020-05-25 11:42 | PDOC.EVN ---
Event Note - Event Note Event Note: MEI CASIANO at 10:46. Time of called by: RN Notifications made to 10:46. Packet completed. Refer to documentation for details. Summary Attending: Dr. Osman Resendez Resident: Dr. Marium Garcia PGY2 Admission Date: 04/23/2020 Date of : 05/25/2020 Time of : 10:46am Cause of : Acute hypoxic respiratory failure secondary to COVID-19 pneumonia Secondary Diagnoses: Metabolic alkalosis, thrombocytopenia, hyperkalemia, UTI, type II DM, hypertension, hyperlipidemia Hospital Course: 74 year old male presented to the hospital for shortness of breath in relation to a previously diagnosed COVID-19 pneumonia. He subsequently started on high- flow nasal cannula. He was given antibiotics, convalescent plasma, steroids, and remdesivir. He was subsequently intubated on 05/05 due to respiratory fatigue. Pulmonology and infectious disease were consulted. His pneumonia continued to progressively worsen and then remained stable. He showed no signs of significant improvement on the ventilator after approximately 20 days. The decision was made by the family to compassionately extubate him on May 25, 2020. He was extubated at 10:15am and at 10:46am with his family present at bedside.
--- NOTE | 2020-05-25 12:27 | PDOC.PALPN ---
Palliative Progress Note - Subjective Intubated with mechanical ventilation. - Objective Vital Signs: Vital Signs - Most Recent Temp Pulse Resp BP Pulse Ox 97.8 F 101 H 27 H 87/67 L 93 L 05/25/20 05:00 05/25/20 07:11 05/25/20 08:00 05/25/20 07:11 05/24/20 08:00 - Physical Exam Constitutional: encephalitic, ill appearing Deviation from normal: Friable mucous membranes Respiratory: diminished lung sound Deviation from normal: Mechanical ventilation Cardiovascular: RRR Gastrointestinal: soft, non-tender Genitourinary: pretty catheter Musculoskeletal: diffuse muscle atrophy Skin: cap refill <2 seconds Deviation from normal: metabolic encephalopathy - Assessment (1) Palliative care encounter Code(s): Z51.5 - ENCOUNTER FOR PALLIATIVE CARE Current Visit: Yes Status: Acute (2) Acute respiratory failure with hypoxia Code(s): J96.01 - ACUTE RESPIRATORY FAILURE WITH HYPOXIA Current Visit: Yes Status: Acute (3) Pneumonia due to COVID-19 virus Code(s): U07.1 - COVID-19; J12.89 - OTHER VIRAL PNEUMONIA Current Visit: Yes Status: Acute - Plan Plan: Family not at bedside, electing to compassionately extubate this morning. Dr Vega placed orders for comfort measures Notified Spiritual Care for additional support. Palliative Care will be available for continued emotional support. Family elected not to add Hospice care for compassionate extubation. [20] minutes spent on this encounter with >50% of the time in counseling and coordination of care. - ROS Non Response: due to endotracheal tube, due to mental status
--- NOTE | 2020-05-25 16:18 | PRG ---
DATE OF SERVICE: 05/25/2020 Mr. Aguilar's family elected to withdraw support and proceed forward with comfort care today. All unnecessary medicines were discontinued except for morphine and Ativan. Family arrived and this was done this morning and he passed quietly after about 30 minutes post extubation. His body is to go to the home. Job ID: [id number]
== END 2020-05-25 10:46 | disposition expired | DRG 870 ==
LOC: ERS 20:32 → IMCU/EMU 22:33 → CCU 05-05 14:02
PROVIDERS: ADMIT Internal Medicine Critical Care Medicine; ATTEND Student in an Organized Health Care Education/Training Program
PROC: 8E0ZXY6 Isolation (ICD-10-PCS; 2020-04-23)
PROC: XW13325 Transfusion of Convalescent Plasma (Nonautologous) into Peripheral Vein, Percutaneous Approach, New Technology Group 5 (ICD-10-PCS; 2020-04-24)
PROC: XW033E5 Introduction of Remdesivir Anti-infective into Peripheral Vein, Percutaneous Approach, New Technology Group 5 (ICD-10-PCS; 2020-04-24)
PROC: 5A09557 Assistance with Respiratory Ventilation, Greater than 96 Consecutive Hours, Continuous Positive Airway Pressure (ICD-10-PCS; 2020-04-29)
PROC: 5A1955Z Respiratory Ventilation, Greater than 96 Consecutive Hours (ICD-10-PCS; principal; 2020-05-05)
PROC: 0BH17EZ Insertion of Endotracheal Airway into Trachea, Via Natural or Artificial Opening (ICD-10-PCS; 2020-05-05)
PROC: 3E033XZ Introduction of Vasopressor into Peripheral Vein, Percutaneous Approach (ICD-10-PCS; 2020-05-12)
DX: A41.89 Other specified sepsis (principal); U07.1 COVID-19; J12.89 Other viral pneumonia; J96.01 Acute respiratory failure with hypoxia; J15.9 Unspecified bacterial pneumonia; N39.0 Urinary tract infection, site not specified; G93.40 Encephalopathy, unspecified; E87.3 Alkalosis; J84.09 Other alveolar and parieto-alveolar conditions; Z51.5 Encounter for palliative care; Z66 Do not resuscitate; B37.7 Candidal sepsis; I10 Essential (primary) hypertension; E78.5 Hyperlipidemia, unspecified; T38.0X5A Adverse effect of glucocorticoids and synthetic analogues, initial encounter; E66.9 Obesity, unspecified; E11.69 Type 2 diabetes mellitus with other specified complication; G47.33 Obstructive sleep apnea (adult) (pediatric); T45.515A Adverse effect of anticoagulants, initial encounter; D75.82 Heparin induced thrombocytopenia (HIT); I95.9 Hypotension, unspecified; E87.5 Hyperkalemia; Y95 Nosocomial condition; Z79.82 Long term (current) use of aspirin; Z79.84 Long term (current) use of oral hypoglycemic drugs; Z87.891 Personal history of nicotine dependence; Z68.28 Body mass index [BMI] 28.0-28.9, adult; Z79.52 Long term (current) use of systemic steroids; Z83.3 Family history of diabetes mellitus; Z82.49 Family history of ischemic heart disease and other diseases of the circulatory system
CPT/HCPCS: 36415; 36416; 36430; 36600; 71045; 71275; 80048; 80053; 80076; 80202; 81001; 81003; 81015; 82550; 82728; 82805; 83605; 83615; 83690; 83880; 84145; 84484; 85007; 85025; 85027; 85379; 85520; 86140; 86850; 86900; 86901; 87040; 87086; 87149; 87635; 87804; 93005; 94002; 94003; 94660; 94760; 96365; 96366; 96367; 96372; 96375; C9113; J0456; J0690; J0692; J1100; J1650; J1652; J1815; J1940; J2060; J2248; J2270; J2704; J2920; J3010; J3370; J3490; J7050; J7070; J8540; P9017; P9045; P9047; Q9967; U0003